=== PATIENT | male | born 1960 | race Caucasian/White ===

== ENCOUNTER 2018-08-12 02:36 | Outpatient (CLI) | payer BC, SELFPAY ==
[2018-08-12 08:29] LABS: Cholesterol 141 mg/dL (50-200); Glucose 100 mg/dL (70-100); HDL Cholesterol 55 mg/dL (40-60); LDL CHOLESTEROL 77 mg/dL (<100); Triglyceride 54 mg/dL (30-150)
== END 2018-08-12 02:56 ==
PROVIDERS: PCP Internal Medicine; Visit Provider Internal Medicine
DX: E78.2 Mixed hyperlipidemia (principal)
CPT/HCPCS: 36415; 80061; 82947; 83721

== ENCOUNTER 2019-01-25 17:17 | Emergency (ER) | payer BC, SELFPAY ==
[2019-01-25 17:22] VITALS: BP 122/75; PULSE 108; RESP 16; TEMP 37.2
--- NOTE | 2019-01-25 18:02 | W.ED.GENAD ---
Discharge Plan Disposition Patient Disposition: HOME Discharge Details Chief Complaint: Fever Clinical Impression: Influenza A Primary Care Provider: Mary Rodgers ED Provider: Mervin Mistry Home Meds and New Rx's Prescriptions: New oseltamivir 75 mg capsule 75 mg PO BID Qty: 9 RF: 0 No Action fluconazole 200 mg tablet 200 mg PO DAILY RF: 0 cholecalciferol (vitamin D3) 1,000 unit capsule 1,000 unit PO DAILY RF: 0 aspirin [Aspir-81] 81 mg tablet,delayed release (DR/EC) 81 mg PO DAILY RF: 0 rosuvastatin [Crestor] 5 mg tablet 5 mg PO DAILY Qty: 90 RF: 3 diphenhydramine HCl [Benadryl] 25 MG capsule 25 mg PO PRN RF: 0 C-nystatin 1 mu PO TID RF: 0 doxycycline monohydrate 50 mg Tablet 100 mg PO BID RF: 0 Discharge Instructions Instructions: Influenza (ED) Additional Instructions: Please take Tamiflu as prescribed. Please take ibuprofen over the counter. Take 600mg by mouth every 6 hours as needed for fever/aches. Please discuss prescribed medications with your doctor. Please contact your primary care physician to arrange follow-up. Return to the ER for any worsening or new concerning symptoms. Referrals: Mary Rodgers MD [Primary Care Provider] - Discharge Data Discharge Date/Time-TO BE ENTERED AT DEPARTURE: 01/25/19 18:30 Medical Decision Making 59-year-old male here with fever since yesterday, sinus congestion, postnasal drip, cough, myalgias. Patient is saturating well in no respiratory distress with clear to auscultation of lungs bilaterally. Patient is hemodynamically stable. He has fatigue but denies dizziness. No signs of focal bacterial infection on exam. Suspect viral URI. Considered influenza. Rapid strep testing Plan to treat with ibuprofen. I encouraged increased oral hydration and supportive care. Patient was instructed to follow-up with his primary care physician and to return immediately should have any worsening or new concerning symptoms. HPI General Mode of arrival: ambulatory. Date/Time Provider Initiated Documentation: 01/25/19 17:31. Limitations to Documentation: no limitations. Information obtained by: patient. HPI Narrative: 59-year-old male here with chief complaint of fever. Patient has had fever for the past 24 hours. Fever worse today and is high as 102 Fahrenheit this afternoon. He notes that yesterday he started to experience sinus congestion, runny nose, intermittent cough, myalgias and fatigue. No modifiers. Patient recently started doxycycline approximately 1 to 2 weeks ago as part of his ongoing treatment for chronic Lyme disease. Related Data Home Medications Medication Instructions Recorded Confirmed diphenhydramine HCl [Benadryl] 25 mg PO PRN cap 03/11/17 01/25/19 aspirin 81 mg tablet,delayed 81 mg PO DAILY 04/01/18 01/25/19 release cholecalciferol (vitamin D3) 1,000 1,000 unit PO DAILY 04/01/18 01/25/19 unit capsule rosuvastatin 5 mg tablet 5 mg PO DAILY #90 tab 04/01/18 01/25/19 C-nystatin 1 mu PO TID 10/08/18 10/08/18 fluconazole 200 mg tablet 200 mg PO DAILY 10/08/18 01/25/19 doxycycline monohydrate 100 mg PO BID 01/25/19 01/25/19 oseltamivir 75 mg PO BID #9 cap 01/25/19 Previous Rx's Medication Instructions Recorded rosuvastatin 5 mg tablet 5 mg PO DAILY #90 tab 04/01/18 oseltamivir 75 mg PO BID #9 cap 01/25/19 Allergies Allergy/AdvReac Type Severity Reaction Status Date / Time cefuroxime axetil Allergy Unknown Hives Unverified 01/25/19 17:24 [From Ceftin] clindamycin Allergy Unknown Hives Unverified 01/25/19 17:24 paroxetine AdvReac Unknown active Unverified 01/25/19 17:24 dreams dust Allergy Unknown Uncoded 01/25/19 17:24 General Stated Complaint: Fever BETINA: 3 Review of Systems Constitutional Constitutional: Reports body ache(s), Reports fatigue, Reports fever(s) and Denies headache(s) ENT Ears, Nose, Mouth, and Throat: Reports as per HPI and Denies headache(s) Cardiovascular Cardiovascular: Denies chest pain and Denies dyspnea Respiratory Respiratory: Reports cough and Denies dyspnea Gastrointestinal Gastrointestinal: Denies abdominal pain Musculoskeletal Musculoskeletal: Reports myalgias Integumentary/Breasts Skin/Breast: Denies rash Neurologic Neurologic: Denies headache(s) Endocrine Endocrine: Reports fatigue PFSH Surgical History colonoscopy w/ bx (07/29/17) H/O colonoscopy (Chronic ~04/26/14) w/ bx H/O elbow surgery (Chronic ~1986) H/O vasectomy (Chronic) History of laryngoscopy (Chronic ~12/21/14) History of temporal artery biopsy (Chronic ~11/27/14) bilaterally History of wisdom tooth extraction (Chronic) Hx of colostomy (Chronic ~08/2010) [place], perforated diverticulitis Re-Anastomosis 11/2010 Prostate Biopsy with imaging guidance (11/25/14) Dr Hoang S/P tonsillectomy (Chronic ~1971) s/p valve sparing root replacement Done at [facility] [place] [facility] [place] Family History Mother Neoplasm AGE 72, Colon cancer, LARGE SCALE ORGAN FAILURE Father , AGE 62 PANCREATIC CA Neoplasm Sister , PNEUMONIA AGE 49 CREST syndrome Colonic polyp Maternal Grandfather Neoplasm COLON CANCER Social History Smoking/Tobacco Use Status: Never Alcohol Intake: never Drug use: Never Household members: other Details: self, and son Housing: house Number of Children: 2 number of grandchildren: 0 Communication Needs: Hard of Hearing Education Level: master's degree Do you need help understanding health information?: Never current occupation: Retired What is your relationship status?: Panel score (0-1 are the most socially isolated patients): 1 Duration: 60-90 minutes/day Frequency: 3-4 times per week Seatbelt use: always Water heater temp set <120 deg: Yes Working smoke detector in home: Yes Fire extinguisher in home: Yes Carbon monox detector in home: Yes Do you feel safe in your relationship?: Yes Exam Const General: cooperative and no acute distress HENMT Head: normocephalic Ears: external ears normal and TM's normal bilaterally General nose exam: external nose normal and nares normal Face and sinus: tenderness bilaterally forehead and maxilla Mouth: moist mucous membranes Throat: posterior oropharynx normal, uvula midline and postnasal drainage Eyes Conjunctivae: normal conjunctivae Sclera: normal sclerae Neck Neck: trachea midline and supple Resp Auscultation: clear to auscultation bilaterally, no rales, no rhonchi and no wheezes Cardio Jugular venous pressure: no JVD Rate: regular rate and not tachycardic Rhythm: regular rhythm GI Palpation: soft, not firm, no guarding, no masses, not rigid and nontender Skin General skin exam: no rashes or lesions noted Neuro General: alert, awake, oriented x3 and tone normal Extrem General: no edema Psych Appearance: grossly normal Mental Status: mental status grossly normal Course Vital Signs Vital signs: Vital Signs Temperature 37.2 C 01/25/19 17:22 Pulse 108 H 01/25/19 17:22 Respiratory Rate 16 01/25/19 17:22 Blood Pressure 122/75 01/25/19 17:22 Temperature 37.2 C 01/25/19 17:22 Temperature Source Skin 01/25/19 17:22 Pulse 108 H 01/25/19 17:22 Respiratory Rate 16 01/25/19 17:22 Respiratory Effort Non-Labored 01/25/19 17:22 Blood Pressure 122/75 01/25/19 17:22 Blood Pressure Position Sitting 01/25/19 17:22 Oxygen Delivery Method Room Air 01/25/19 17:22 Oxygen Flow Rate 0 01/25/19 17:22 Pain Level 4 01/25/19 17:22 Lab/Test Results Lab/Test Results: 01/25/19 17:34 Nasopharynx Influenza Types A,B Antigen - Pending
[2019-01-25] MEDS: Ibuprofen 600 MG TAB PO (18:20)
[2019-01-25] MEDS: Oseltamivir 75 MG CAP PO (18:25)
[2019-01-25 18:29] VITALS: BP 124/77; PULSE 91; RESP 18; O2SAT 95
== END 2019-01-25 18:30 | disposition home or self-care (01) ==
LOC: ER 18:23
PROVIDERS: Emergency Provider Student in an Organized Health Care Education/Training Program; PCP Internal Medicine
DX: J10.1 Influenza due to other identified influenza virus with other respiratory manifestations (principal)
CPT/HCPCS: 87449; 99283

== ENCOUNTER 2019-02-16 01:48 | Outpatient (CLI) | payer BC, SELFPAY ==
--- NOTE | 2019-02-16 14:00 | DI.US_ITS ---
APPROVED REPORT Other Information Study Quality: Adequate Conclusion Mild concentric LVH. EF is 60-65%. There are no segmental wall motion abnormalities. The left atrium is mildly dilated Right atrium is top normal size There is very mild aortic stenosis ( mean gradient 11 mm Hg) , and trace to mild aortic regurgitation The aortic valve is probably trileaflet The anterior mitral leaflet is focally thickened. There is trace to mild mitral regurgitation There is mild tricuspid regurgitation There is an ascending aortic conduit, 3.8-3.9 cm in diameter EXAM: Comprehensive 2D, Doppler, and color-flow Echocardiogram Rhythm: NSR Indications: H/O thoracic aortic aneurysm repair Z98.89 Left Ventricle The left ventricle is normal size. The left ventricular ejection fraction is within the normal range. Mild concentric left ventricular hypertrophy. There is normal LV segmental wall motion. Tissue Doppl er imaging reveals moderate left ventricular diastolic dysfunction. LVEF is 60-65%. Right Ventricle The right ventricle is normal size. The right ventricular systolic function is normal. Atria Left atrium is mildly dilated. Right atrium size is top normal. Aortic Valve Aortic valve is probably trileaflet. very mild Aortic stenosis. Trace to mild aortic regurgitation. Mitral Valve The mitral valve is thickened but opens well. There is anterior mitral valve leaflet focal thickening . Trace to mild mitral regurgitation. Tricuspid Valve The tricuspid valve is normal in structure. Mild tricuspid regurgitation. Great Vessels Aortic root and ascending repair. Appears to be a conduit. No leaks were identified. Asc. about 3.8-3 .9cm IVC is normal in size and collapses >50% with inspiration. Pericardium There is no pericardial effusion. 2D Dimensions IVSd 1.17 cm M: 0.6-1.2 LV EDV A2C 58.70 mL PWd 1.18 cm M: 0.6 - 1.2 LV EDV A4C 61.40 mL LVDd 4.68 cm M: 4.2 - 5.9 LA Volume Index A2C 19.93 mL/m2 LVDs 3.19 cm M: 2.5 - 4.0 LA Volume Index A4C 32.18 mL/m2 Aortic Root 3.34 cm M: 3.1 - 3.7 LA Volume Index Biplane 26.68 mL/m2 RA Area A4C 19.52 cm2 LA Area A4C 21.57 cm2 LVOT 2.18 cm (M/F) 1.5-2.5 LA Area A2C 17.88 cm2 Ascending Aorta 3.86 cm M: 2.6 - 3.4 EF AP4 53.09 % LVEF (Teich) 59.86 % EF AP2 70.19 % LVEF (Mccracken's) 61.56 % M: 52 - 72 EF BP 61.56 % FS 31.82 % LV Diastology E/A Ratio 1.1 MED E' 0.09 (>0.07 m/s) LV E/e MED 7.08 (<14) LAT E' 0.10 (>0.1 m/s) LV E/e LAT 6.54 (<14) Pulm Vein s 0.67 m/s PV S/D Ratio 1.03 Pulm Vein d 0.65 m/s Pulm Vein a 0.33 m/s Aortic Valve LVOT Area 3.75 cm2 LVOT Peak Quinn. 1.06 m/s LVOT Mean Quinn. 0.76 m/s LVOT Peak Gr. 4.46 mmHg RIGOBERTO Vmax Index 0.87 cm2/m2 LVOT Mean Gr. 2.57 mmHg LVOT VTI 0.23 m RIGOBERTO Mean Quinn. Index 0.85 cm2/m2 AoV Peak Quinn. 2.13 (0.5-1.3 m/s) AoV Mean Quinn. 1.58 m/s AO Peak GR. 18.23 mmHg AO Mean GR. 11.04 (<5 mmHg) AO VTI 0.42 (0.18-0.25 m) RIGOBERTO (VTI) 2.04 (2.5-4.5 cm2) RIGOBERTO (VTI) Index 0.96 cm/m2 Mitral Valve MV E Max Quinn. 0.65 (0.4-1.3 m/s) MV A Velocity 0.58 (0.4-1.3 m/s) E/A Ratio 1.12 MV Decel. Time 219.17 (160-240 msec) MV PHT 63.56 msec MVA PHT 3.46 cm2 Pulmonary Valve PV Peak Velocity 1.02 (0.5-1.5 m/s) Tricuspid Valve TR P. Velocity 2.33 m/s TV Regurg Vmax 2.33 m/s TR P. Gradient 21.72 mmHg
== END 2019-02-16 02:08 ==
PROVIDERS: PCP Internal Medicine; Visit Provider Student in an Organized Health Care Education/Training Program
DX: I71.2 Thoracic aortic aneurysm, without rupture (principal); I25.10 Atherosclerotic heart disease of native coronary artery without angina pectoris; I35.2 Nonrheumatic aortic (valve) stenosis with insufficiency; Z98.890 Other specified postprocedural states
CPT/HCPCS: 93306

== ENCOUNTER 2019-04-02 14:06 | Outpatient (CLI) | payer BC, SELFPAY ==
[2019-04-02 15:41] LABS: Vitamin D 25 Total 35.4 ng/ml (30-100)
== END 2019-04-02 14:26 ==
PROVIDERS: PCP Internal Medicine; Visit Provider Physical Medicine & Rehabilitation
DX: E55.9 Vitamin D deficiency, unspecified (principal); M89.9 Disorder of bone, unspecified
CPT/HCPCS: 36415; 82306

== ENCOUNTER 2019-06-02 12:37 | Outpatient (CLI) | payer BC, SELFPAY ==
[2019-06-02 14:33] LABS: Calculated LDL 112 mg/dL (<100); Cholesterol 218 mg/dL (<200); HDL Cholesterol 46 mg/dL (40-60); Triglyceride 304 mg/dL (<150)
== END 2019-06-02 12:57 ==
PROVIDERS: PCP Internal Medicine; Visit Provider Internal Medicine
DX: E78.00 Pure hypercholesterolemia, unspecified (principal)
CPT/HCPCS: 36415; 80061

== ENCOUNTER 2019-07-01 08:14 | Emergency (ER) | payer BC, SELFPAY ==
[2019-07-01 08:18] VITALS: BP 118/83; PULSE 74; RESP 16; TEMP 36.7; O2SAT 100
[2019-07-01 08:24] LABS: Bilirubin Small (Negative); Blood Large (Negative); Clarity Cloudy (Clear); Glucose Negative (Negative); Ketones Negative (Negative); Leukocyte Esterase Negative (Negative); Nitrite Positive (Negative); Specific Gravity 1.025 (1.005-1.025)
--- NOTE | 2019-07-01 08:30 | DI.CT_ITS ---
EXAM: CT RENAL COLIC WO CLINICAL HISTORY: L flank pain, hematuria TECHNIQUE: Non contrast COMPARISON: ABD PELVIS WITH CONTRAST from 09/24/2010 FINDINGS: There are multiple bilateral renal calculi. There is a stone in the proximal left ureter measuring 7 millimeters. There is mild left hydronephrosis and mild left perinephric stranding. The right ure ter is mildly dilated however there is no evidence of a right-sided ureteral stone. The prostate is massively enlarged, measuring 6.3 x 5.9 by 5.4 cm. There is diffuse bladder wall thickening. No phillip dder calculi are seen. There are a few calcifications within the prostate. Visualized portions of t he lung bases show dependent changes. A small cyst is noted in the liver which is otherwise unremark able. The gallbladder, spleen, pancreas and adrenals are unremarkable. The appendix appears normal. There is increased stool. There is mild diverticulosis of the lower descending and sigmoid colon. A rectal anastomosis is seen. The aorta is normal in diameter. There has been a previous hernia re pair near the umbilicus. There are bilateral fatty containing inguinal hernias. There are mild degen erative changes in the spine. IMPRESSION: Mild left hydronephrosis secondary to a 7 millimeter stone in the proximal ureter. Multiple bilatera l non-obstructing renal calculi are also seen. The prostate is enlarged. Diffuse bladder wall thick ening.
[2019-07-01 08:40] LABS: RBC >50 HPF (0-2)
[2019-07-01 08:41] LABS: C & S Indicated? No
[2019-07-01] MEDS: Ondansetron O.D.T. 4 MG TABEF PO (08:44)
[2019-07-01] MEDS: MORPHine 10 MG/ML VIAL 2 MG IVP ×2 (08:45→09:06)
[2019-07-01] MEDS: Normal Saline 1,000 ML 1000 ML IV ×2 (08:45→09:46)
--- NOTE | 2019-07-01 08:49 | W.ED.GENAD ---
Discharge Plan Disposition Patient Disposition: HOME Condition: Stable Discharge Details Chief Complaint: FlankPain Clinical Impression: Left renal stone, Hydronephrosis Primary Care Provider: Mary Rodgers ED Provider: Shalom Grier Home Meds and New Rx's Prescriptions: New tamsulosin [Flomax] 0.4 mg capsule 0.4 mg PO DAILY 5 Days Qty: 5 RF: 0 ondansetron HCl [Zofran] 4 mg tablet 4 mg PO Q6H PRN (Reason: nausea and vomiting) Qty: 10 RF: 0 oxycodone-acetaminophen [Percocet] 5-325 mg tablet 1 tab PO Q6H PRN (Reason: pain) Qty: 8 RF: 0 Continued fluconazole 200 mg tablet 200 mg PO DAILY RF: 0 tetracycline 500 mg capsule 500 mg PO TID RF: 0 loxOral nystain PO BID RF: 0 cholecalciferol (vitamin D3) 1,000 unit capsule 1,000 unit PO DAILY RF: 0 aspirin [Aspir-81] 81 mg tablet,delayed release (DR/EC) 81 mg PO DAILY RF: 0 diphenhydramine HCl [Benadryl] 25 MG capsule 25 mg PO PRN RF: 0 rosuvastatin [Crestor] 5 mg tablet 5 mg PO DAILY Qty: 90 RF: 0 Discharge Instructions Instructions: Kidney Stones (ED) Additional Instructions: Percocet, Flomax, Zofran as directed. Percocet may cause drowsiness and/or constipation. Plenty of fluids to avoid dehydration. Please watch for new or worsening symptoms and return to the ER for any concerns. I have given you the name and number of Dr. Mcintyre, urologist. I am going to fax your information to his office but I strongly recommend you contact his office tomorrow morning to help expedite outpatient care. Your stone is 7 mm and may not pass on its own. Referrals: Ottoniel Mcintyre MD [ [facility] STAFF PHYSICIAN] - Discharge Data Discharge Date/Time-TO BE ENTERED AT DEPARTURE: 07/01/19 12:07 Medical Decision Making 59-year-old gentleman with extensive past medical history. Hematuria left flank-back pain that began yesterday into this morning. Most likely diagnosis is that of a renal stone however given his complicated past medical history certainly cannot rule out any other intra-abdominal etiologies. Will obtain IV access, give IV fluid, morphine, Zofran, will obtain laboratory values and CT imaging without contrast for likely renal colic. Patient is comfortable with this plan. Patient reports mild relief with 2 mg IV morphine, a second dose given. Laboratory values reveal creatinine of 1.33 estimated GFR of 55.23. Large amount of blood in his urine positive for nitrates greater than 50 red blood cells. Leuk esterase negative CT reveals 7 mm stone in the left proximal ureter with mild hydronephrosis. Enlarged prostate. Made patient aware of CT findings. Patient given 30 IV Toradol and another liter of IV fluid. Only mild hydro-at this time. Urinalysis as above is positive for nitrates but negative for leuk esterase, patient is afebrile, his white count is 10.68, and given the amount of blood in the urine, unable to fully evaluate for white blood cells in his urine. Culture pending. I have placed a call to Dr. Mcintyre to help expedite the patient's care. Upon reevaluation patient reports significant improvement with IV Toradol. Upon another reevaluation patient is resting comfortably and using his cell phone without difficulty. We discussed his work-up here again in the ER and disposition. I am still awaiting a call from Dr. Mcintyre but in the meantime we will forward the patient's information to his office to help expedite outpatient care. He understands that his stone is 7 mm and very well may not pass on its own. No clear indication for antibiotic therapy at this time. Will discharge with Percocet, Zofran, Flomax. Encouraged to be sure to have ample hydration. It turns out that Dr. Mcintyre is not in the office today so it appears I will not be able to speak with him however as above we have forwarded the patient's information to his office so they may reach out to him tomorrow and I encouraged the patient to reach out to Dr. Mcintyre's office tomorrow if he does not hear from them in the morning. Medical Records Medical records reviewed: Yes I reviewed the patient's medical records. Imaging Data Radiologic Study: Imaging: CT Scan Radiologist's impression: 7 mm stone left proximal ureter with mild hydronephrosis. Enlarged prostate Lab Data Lab results reviewed: Yes I reviewed the patient's lab results. Lab results narrative: Laboratory Tests Range/Units 07/01/19 07/01/19 07/01/19 08:18 08:30 08:30 WBC (4.4-10.8) k/cumm 10.68 RBC (4.50-6.00) m/cumm 4.73 Hgb (13.5-17.5) g/dL 15.3 Hct (40.0-50.0) % 44.3 MCV (80-95) fL 93.7 MCH (27.0-33.0) pg 32.3 MCHC (32.0-36.0) g/dL 34.5 RDW (11.8-14.1) % 13.3 Plt Count (130-400) x1000/uL 243 MPV (8.0-11.0) fL 9.2 Immature Gran % % 0.2 Neutrophils % 87.8 Lymphocytes % 6.2 Monocytes % 5.5 Eosinophils % 0.2 Basophils % 0.1 Absolute Neutrophils (1.2-6.7) k/cumm 9.38 H Absolute Lymphocytes (1.2-3.4) k/cumm 0.66 L Absolute Monocytes (0.11-0.7) k/cumm 0.59 Absolute Eosinophils (0.0-0.7) k/cumm 0.02 Absolute Basophils (0.0-0.2) k/cumm 0.01 PT (9.3-11.0) sec INR (0.9-1.1) APTT (21.0-31.4) sec Sodium (136-145) mmol/L 141 Potassium (3.5-5.1) mmol/L 4.3 Chloride (98-107) mmol/L 104 Carbon Dioxide (21.0-32.0) mmol/L 31.0 Anion Gap (3-11) mmol/L 6.0 BUN (7-18) mg/dL 23 H Creatinine (0.70-1.30) mg/dL 1.33 H Estimated GFR/1.73 m2 (mL/min/1.73m2) 55.23 Glucose (74-106) mg/dL 132 H Calcium (8.5-10.1) mg/dL 8.4 L Total Bilirubin (0.2-1.0) mg/dL 0.6 AST (15-37) U/L 27 ALT (16-63) U/L 36 Alkaline Phosphatase (46-116) U/L 61 Total Protein (6.4-8.2) g/dL 7.0 Albumin (3.4-5.0) g/dL 4.0 Urine Color (Yellow) Red Urine Clarity (Clear) Cloudy Urine pH (5-8) 7.0 Ur Specific [place] (1.005-1.025) 1.025 Urine Protein (Negative) mg/dL 100 H Urine Ketones (Negative) mg/dL Negative Urine Blood (Negative) Large H Urine Nitrite (Negative) Positive H Urine Bilirubin (Negative) Small H Urine Urobilinogen (Up TO 0.2) EU/dL 1.0 H Ur Leukocyte Esterase (Negative) Negative Urine RBC (0-2) HPF >50 H Urine WBC (0-5) HPF Ur Epithelial Cells (Negative) HPF Urine Crystals (Negative) HPF Urine Bacteria (Negative) HPF Urine Casts (Negative) LPF Urine Mucus (Negative) Ur Culture Indicated? No Urine Glucose (Negative) mg/dL Negative Range/Units 07/01/19 08:30 WBC (4.4-10.8) k/cumm RBC (4.50-6.00) m/cumm Hgb (13.5-17.5) g/dL Hct (40.0-50.0) % MCV (80-95) fL MCH (27.0-33.0) pg MCHC (32.0-36.0) g/dL RDW (11.8-14.1) % Plt Count (130-400) x1000/uL MPV (8.0-11.0) fL Immature Gran % % Neutrophils % Lymphocytes % Monocytes % Eosinophils % Basophils % Absolute Neutrophils (1.2-6.7) k/cumm Absolute Lymphocytes (1.2-3.4) k/cumm Absolute Monocytes (0.11-0.7) k/cumm Absolute Eosinophils (0.0-0.7) k/cumm Absolute Basophils (0.0-0.2) k/cumm PT (9.3-11.0) sec 10.6 INR (0.9-1.1) 1.1 APTT (21.0-31.4) sec 24.3 Sodium (136-145) mmol/L Potassium (3.5-5.1) mmol/L Chloride (98-107) mmol/L Carbon Dioxide (21.0-32.0) mmol/L Anion Gap (3-11) mmol/L BUN (7-18) mg/dL Creatinine (0.70-1.30) mg/dL Estimated GFR/1.73 m2 (mL/min/1.73m2) Glucose (74-106) mg/dL Calcium (8.5-10.1) mg/dL Total Bilirubin (0.2-1.0) mg/dL AST (15-37) U/L ALT (16-63) U/L Alkaline Phosphatase (46-116) U/L Total Protein (6.4-8.2) g/dL Albumin (3.4-5.0) g/dL Urine Color (Yellow) Urine Clarity (Clear) Urine pH (5-8) Ur Specific [place] (1.005-1.025) Urine Protein (Negative) mg/dL Urine Ketones (Negative) mg/dL Urine Blood (Negative) Urine Nitrite (Negative) Urine Bilirubin (Negative) Urine Urobilinogen (Up TO 0.2) EU/dL Ur Leukocyte Esterase (Negative) Urine RBC (0-2) HPF Urine WBC (0-5) HPF Ur Epithelial Cells (Negative) HPF Urine Crystals (Negative) HPF Urine Bacteria (Negative) HPF Urine Casts (Negative) LPF Urine Mucus (Negative) Ur Culture Indicated? Urine Glucose (Negative) mg/dL HPI General Mode of arrival: ambulatory. Date/Time Provider Initiated Documentation: 07/01/19 08:34. Limitations to Documentation: no limitations. Information obtained by: patient. HPI Narrative: This is a 59-year-old gentleman who reports mild hematuria yesterday, woke up this morning at 2 AM with left back and flank pain and increased hematuria. Mild nausea but no vomiting. Patient reports that imaging 2 years ago did show that he had incidental renal stones. He has never passed a stone. Denies recent illness or trauma. Reports the pain is sharp and moderate to severe. He has a history of aortic aneurysm with repair, bacteremia, neuralgia, arterial sclerosis of coronary artery, hyperlipidemia, sleep apnea, migraines, GERD, diverticulitis, partial bowel resection with colostomy and subsequent reversal. Related Data Home Medications Medication Instructions Recorded Confirmed diphenhydramine HCl [Benadryl] 25 mg PO PRN cap 03/11/17 07/01/19 aspirin 81 mg tablet,delayed 81 mg PO DAILY 04/01/18 07/01/19 release cholecalciferol (vitamin D3) 25 1,000 unit PO DAILY 04/01/18 07/01/19 mcg (1,000 unit) capsule fluconazole 200 mg tablet 200 mg PO DAILY 10/08/18 07/01/19 rosuvastatin 5 mg tablet 5 mg PO DAILY #90 tab 04/16/19 07/01/19 loxOral nystain PO BID 05/19/19 tetracycline 500 mg capsule 500 mg PO TID 05/19/19 07/01/19 ondansetron HCl [Zofran] 4 mg PO Q6H PRN #10 tab 07/01/19 oxycodone-acetaminophen [Percocet] 1 tab PO Q6H PRN #8 tab 07/01/19 tamsulosin [Flomax] 0.4 mg PO DAILY 5 Days #5 cap 07/01/19 Previous Rx's Medication Instructions Recorded rosuvastatin 5 mg tablet 5 mg PO DAILY #90 tab 04/16/19 ondansetron HCl [Zofran] 4 mg PO Q6H PRN #10 tab 07/01/19 oxycodone-acetaminophen [Percocet] 1 tab PO Q6H PRN #8 tab 07/01/19 tamsulosin [Flomax] 0.4 mg PO DAILY 5 Days #5 cap 07/01/19 Allergies Allergy/AdvReac Type Severity Reaction Status Date / Time cefuroxime axetil Allergy Unknown Hives Verified 07/01/19 08:24 [From Ceftin] clindamycin Allergy Unknown Hives Verified 07/01/19 08:24 paroxetine AdvReac Unknown active Verified 07/01/19 08:24 dreams dust Allergy Unknown Uncoded 07/01/19 08:24 General Stated Complaint: FlankPain BETINA: 3 Review of Systems Constitutional Constitutional: Denies fatigue, Denies fever(s) and Reports headache(s) Eyes Eyes: Denies change in vision ENT Ears, Nose, Mouth, and Throat: Reports headache(s) Cardiovascular Cardiovascular: Denies chest pain and Denies dyspnea Respiratory Respiratory: Denies cough and Denies dyspnea Gastrointestinal Gastrointestinal: Reports abdominal pain, Reports nausea and Denies vomiting Genitourinary Genitourinary: Reports hematuria, Denies dysuria, Denies penile discharge and Denies testicular pain Musculoskeletal Musculoskeletal: Reports back pain Integumentary/Breasts Skin/Breast: Denies rash Neurologic Neurologic: Reports headache(s) Endocrine Endocrine: Denies fatigue [facility] Surgical History colonoscopy w/ bx (07/29/17) H/O colonoscopy (Chronic ~04/26/14) w/ bx H/O elbow surgery (Chronic ~1986) H/O vasectomy (Chronic) History of laryngoscopy (Chronic ~12/21/14) History of temporal artery biopsy (Chronic ~11/27/14) bilaterally History of wisdom tooth extraction (Chronic) Hx of colostomy (Chronic ~08/2010) [place], perforated diverticulitis Re-Anastomosis 11/2010 Prostate Biopsy with imaging guidance (11/25/14) Dr Hoang S/P tonsillectomy (Chronic ~1971) s/p valve sparing root replacement Done at [facility] [place] 03/13/15 Family History Mother Neoplasm AGE 72, Colon cancer, LARGE SCALE ORGAN FAILURE Father , AGE 62 PANCREATIC CA Neoplasm Sister , PNEUMONIA AGE 49 CREST syndrome Colonic polyp Maternal Grandfather Neoplasm COLON CANCER Social History Smoking/Tobacco Use Status: Never Alcohol Intake: never Drug use: Never Household members: other Details: self, and son Housing: house Number of Children: 2 number of grandchildren: 0 Communication Needs: Hard of Hearing Education Level: master's degree Do you need help understanding health information?: Never current occupation: Retired What is your relationship status?: Panel score (0-1 are the most socially isolated patients): 1 Duration: 60-90 minutes/day Frequency: 3-4 times per week Seatbelt use: always Water heater temp set <120 deg: Yes Working smoke detector in home: Yes Fire extinguisher in home: Yes Carbon monox detector in home: Yes Do you feel safe at home: Yes Do you feel safe in your relationship?: Yes Exam Const General: cooperative, healthy appearing, comfortable and no acute distress Orientation: alert, awake and oriented x3 HENMT Head: normal to inspection, normocephalic and atraumatic Mouth: moist mucous membranes Eyes Conjunctivae: conjunctivae normal Neck Neck: normal visual inspection, full ROM, trachea midline and supple Resp Effort & Inspection: normal respiratory effort and able to speak in complete sentences Auscultation: clear to auscultation bilaterally Cardio Rate: regular rate Rhythm: regular rhythm GI Inspection: normal to inspection Palpation: soft, not firm, no guarding, not rigid and tender (Mild left-sided flank discomfort to moderate palpation) with no rebound tenderness Auscultation: normal bowel sounds Back/Spine/Pelvis Back: no CVA tenderness and No back tenderness Skin General skin exam: no rashes or lesions noted Neuro General: alert, awake, moves all extremities and no focal motor deficits Motor: muscle tone normal throughout Sensory Exam: no sensory deficits noted Extrem General: normal to inspection and full ROM Psych Appearance: grossly normal Mental Status: mental status grossly normal Course Vital Signs Vital signs: Vital Signs Temperature 36.7 C 07/01/19 08:18 Pulse 74 07/01/19 08:18 Respiratory Rate 16 07/01/19 08:18 Blood Pressure 118/83 07/01/19 08:18 Pulse Oximetry 100 07/01/19 08:18 Temperature 36.7 C 07/01/19 08:18 Temperature Source Temporal Artery Scan 07/01/19 08:18 Pulse 74 07/01/19 08:18 Respiratory Rate 16 07/01/19 08:18 Respiratory Effort Non-Labored 07/01/19 08:23 Blood Pressure 118/83 07/01/19 08:18 Blood Pressure Position Sitting 07/01/19 08:18 Pulse Oximetry 100 07/01/19 08:18 Oxygen Delivery Method Room Air 07/01/19 08:18 Oxygen Flow Rate 0 07/01/19 08:18 Pain Level 8 07/01/19 08:45 Lab/Test Results Lab/Test Results: Laboratory Tests Range/Units 07/01/19 08:18 Urine Color (Yellow) Red Urine Clarity (Clear) Cloudy Urine pH (5-8) 7.0 Ur Specific [place] (1.005-1.025) 1.025 Urine Protein (Negative) mg/dL 100 H Urine Ketones (Negative) mg/dL Negative Urine Blood (Negative) Large H Urine Nitrite (Negative) Positive H Urine Bilirubin (Negative) Small H Urine Urobilinogen (Up TO 0.2) EU/dL 1.0 H Ur Leukocyte Esterase (Negative) Negative Urine RBC (0-2) HPF >50 H Urine WBC (0-5) HPF Ur Epithelial Cells (Negative) HPF Urine Crystals (Negative) HPF Urine Bacteria (Negative) HPF Urine Casts (Negative) LPF Urine Mucus (Negative) Ur Culture Indicated? No Urine Glucose (Negative) mg/dL Negative
[2019-07-01 09:00] LABS: Abs Immature Grans 0.02 k/cumm (0.0-0.09); Absolute Basophil Count 0.01 k/cumm (0.0-0.2); Absolute Eosinophil Count 0.02 k/cumm (0.0-0.7); Absolute Lymphocyte Count 0.66 k/cumm (1.2-3.4); Absolute Monocyte Count 0.59 k/cumm (0.11-0.7); Absolute Neutrophil Count 9.38 k/cumm (1.2-6.7); Basophils % 0.1; Eosinophils % 0.2; HCT 44.3 % (40.0-50.0); HGB 15.3 g/dL (13.5-17.5); Immature Grans % 0.2 %; Lymphocytes % 6.2; Mean Corp. HGB Concentration 34.5 g/dL (32.0-36.0); Mean Corpuscular Hemoglobin 32.3 pg (27.0-33.0); Mean Corpuscular Volume 93.7 fL (80-95); Mean Platelet Volume 9.2 fL (8.0-11.0); Monocytes % 5.5; Neutrophils % 87.8; Platelet Count 243 x1000/uL (130-400); RBC 4.73 m/cumm (4.50-6.00); RBC Distribution Width 13.3 % (11.8-14.1); White Blood Cell Count 10.68 k/cumm (4.4-10.8)
[2019-07-01 09:09] LABS: INR 1.1 (0.9-1.1); PTT Activated 24.3 sec (21.0-31.4); Prothrombin Time 10.6 sec (9.3-11.0)
[2019-07-01 09:17] LABS: ALT 36 U/L (16-63); AST 27 U/L (15-37); Alkaline Phosphatase 61 U/L (46-116); BUN 23 mg/dL (7-18); Bilirubin, Total 0.6 mg/dL (0.2-1.0); CREATININE 1.33 mg/dL (0.70-1.30); Calcium 8.4 mg/dL (8.5-10.1); Chloride 104 mmol/L (98-107); Estimated GFR 55.23 (mL/min/1.73m2); Glucose 132 mg/dL (74-106); Potassium 4.3 mmol/L (3.5-5.1); Sodium 141 mmol/L (136-145)
[2019-07-01] MEDS: Ketorolac 30 MG/ML VIAL IVP (09:46)
[2019-07-01 11:37] VITALS: BP 132/87; PULSE 89; RESP 18; TEMP 37.1; O2SAT 97
[2019-07-01 12:08] VITALS: BP 132/87; PULSE 89; RESP 18; TEMP 37.1; O2SAT 97
--- NOTE | 2019-07-01 12:54 | NUR.NOTE ---
Nursing Note: Referral faxed to [facility] for follow up. Keila Rankin
== END 2019-07-01 12:07 | disposition home or self-care (01) ==
PROVIDERS: Emergency Provider Physician Assistant; PCP Internal Medicine
DX: N13.2 Hydronephrosis with renal and ureteral calculous obstruction (principal); N40.0 Benign prostatic hyperplasia without lower urinary tract symptoms; Z87.442 Personal history of urinary calculi
CPT/HCPCS: 36415; 80053; 96361; 96374; 96375; 99284; 74176; 81003; 81015; 85025; 85610; 85730; 99285; J1885; J2270

== ENCOUNTER 2019-07-06 08:33 | Day surgery (SDC) | payer BC, SELFPAY ==
[2019-07-06] VITALS (8 sets, daily range): BP systolic 76–131; BP diastolic 45–83; PULSE 56–77; RESP 14–18; TEMP 36.3–36.8; O2SAT 96–100
[2019-07-06] MEDS: Lactated Ringers 1,000 ML 80 ML IV ×2 (09:22→13:24)
--- NOTE | 2019-07-06 10:06 | HPE_ITS ---
Date of service: 07/06/19 Time of Service: 10:07 Assessment and Plan Assessment and plan (1) Left ureteral stone: Status: Acute Assessment and plan: We will move ahead with cystoscopy, left retrograde p yelogram, left flexible ureteroscopy with Holmium laser lithotripsy of the ureteral stone. i explained that if we are unable to access the stone, we may need to place a ureteral stent and arrange a staged procedure. We discussed complications such as bleeding, infection and ureteral/bladder/renal injury. History of Present Illness History of Present Illness Chief Complaint: Left ureteral stone Narrative: Chief complaint: Left ureteral stone This is a 59-year-old gentleman who had previously been identified as having nonobstructing bilateral kidney stones. The diagnosis was made on imaging studies done for unrelated reasons. He has never had any pain associated with the stones until he was awakened last week with severe left upper quadrant and flank pain. He was evaluated in our emergency room and a CT scan demonstrates a 7 mm proximal left ureteral stone. His pain is managed as long as he takes his pain medication regularly. He did have some gross hematuria prior to the onset of the pain. The hematuria was present when he presented to the emergency room but has since resolved. He has no dysuria. He has no fever or chills. He does have a family history of kidney stone. He has no known history of gout or hyperparathyroid disease. He does have a history of Lyme disease and at one point was on a very high protein diet. He was told that his uric acid levels were high and he was wondering if his stones may be related to the high-protein diet. He is not sure about the chemical composition of his siblings stones. Since his initial evaluation, he has had continued pain. The pain has not changed in position. Review of Systems Const: Details: No fevers or chills No vision change or dysphasia No diabetes or thyroid No shortness of breath, cough or hemoptysis No chest pain or palpitations No hepatitis, ulcers, jaundice, diarrhea or constipation No seizures, strokes or peripheral neuropathy No bleeding disorders or anemia No known gout Exam Const Other: He does not appear septic or toxic He cooperative His vital signs are documented elsewhere His chest wall motion is normal. He is not short of breath at rest. He is awake and alert We reviewed his renal CT scan on the PACS system. He has multiple nonobstructing stones in both kidneys. There is a 7 mm stone in the upper left ureter causing hydronephrosis. I do not see any distal ureteral stones. I cannot definitively see the stones on the plain film portion of his CT, but there is quite a bit of overlying bowel gas. I did find a [facility] report from 2010 indicates the stones are radio opaque. His urine pH is 7 Vital Signs 07/02/19 11:08 BP 135/78 Blood Pressure Location Lt brachial Position Sitting Pulse 60 Pulse Source NIBP PFSH Social History Smoking/Tobacco Use Status: Never Alcohol Intake: never Drug use: Never Substance use type: does not use Household members: other Details: self, and son Housing: house Number of Children: 2 number of grandchildren: 0 Communication Needs: Hard of Hearing Education Level: master's degree Do you need help understanding health information?: Never current occupation: Retired What is your relationship status?: Panel score (0-1 are the most socially isolated patients): 1 Duration: 60-90 minutes/day Frequency: 3-4 times per week Seatbelt use: always Water heater temp set <120 deg: Yes Working smoke detector in home: Yes Fire extinguisher in home: Yes Carbon monox detector in home: Yes Do you feel safe at home: Yes Do you feel safe in your relationship?: Yes Meds Home Medications and Allergies Home Medications Medication Instructions Recorded Confirmed Type diphenhydramine HCl [Benadryl] 25 mg PO PRN cap 03/11/17 07/06/19 History aspirin 81 mg tablet,delayed 81 mg PO DAILY 04/01/18 07/06/19 History release cholecalciferol (vitamin D3) 25 1,000 unit PO DAILY 04/01/18 07/06/19 History mcg (1,000 unit) capsule fluconazole 200 mg tablet 200 mg PO DAILY 10/08/18 07/06/19 History rosuvastatin 5 mg tablet 5 mg PO DAILY #90 tab 04/16/19 07/06/19 Rx loxOral nystain 1 PO BID 05/19/19 07/02/19 History tetracycline 500 mg capsule 500 mg PO TID 05/19/19 07/06/19 History ondansetron HCl [Zofran] 4 mg PO Q6H PRN #10 tab 07/01/19 07/06/19 Rx oxycodone-acetaminophen [Percocet] 1 tab PO Q6H PRN #8 tab 07/01/19 07/06/19 Rx Allergies Allergy/AdvReac Type Severity Reaction Status Date / Time cefuroxime axetil AdvReac Unknown Hives Verified 07/06/19 09:04 [From Ceftin] clindamycin AdvReac Unknown Hives Verified 07/06/19 09:04 paroxetine AdvReac Unknown active Verified 07/06/19 09:04 dreams dust Allergy Unknown Uncoded 07/06/19 09:04 Exam Resp Effort & Inspection: normal respiratory effort Auscultation: clear to auscultation bilaterally Cardio Rate: regular rate Rhythm: regular rhythm Results Last Vital Signs Temp 36.3 C L 07/06/19 08:43 Pulse 67 07/06/19 08:43 Resp 18 07/06/19 08:43 BP 131/83 07/06/19 08:43 Pulse Ox 97 07/06/19 08:43
--- NOTE | 2019-07-06 10:45 | DI.RAD_ITS ---
EXAM: XR RETROGRADE IN OR CLINICAL HISTORY: LEFT URETERAL STONE. TECHNIQUE: 2D and realtime digital imaging was performed. FINDINGS: Fluoroscopy was utilized by Dr. Mcintyre during the retrograde evaluation of the renal collecting system . Please refer to the procedure report for complete details. Fluoro time: 26.7 sec
[2019-07-06] MEDS: GENTAMICIN 120 MG in Normal Saline 100 ML 206 MG IVPB (11:26)
[2019-07-06] MEDS: Lidocaine 2% Jelly 6 ML SYR (11:43)
[2019-07-06] MEDS: Omnipaque 300 MG/ML 50 ML BTL (11:52)
--- NOTE | 2019-07-06 12:38 | W.PM.DSUDISC ---
Discharge Plan Disposition Patient Disposition: HOME Condition: Stable Discharge Details Attending Provider: Ottoniel Mcintyre Primary Care Provider: Mary Rodgers Home Meds and New Rx's Prescriptions: No Action fluconazole 200 mg tablet 200 mg PO DAILY RF: 0 tetracycline 500 mg capsule 500 mg PO TID RF: 0 loxOral nystain 1 PO BID RF: 0 cholecalciferol (vitamin D3) 1,000 unit capsule 1,000 unit PO DAILY RF: 0 aspirin [Aspir-81] 81 mg tablet,delayed release (DR/EC) 81 mg PO DAILY RF: 0 diphenhydramine HCl [Benadryl] 25 MG capsule 25 mg PO PRN RF: 0 rosuvastatin [Crestor] 5 mg tablet 5 mg PO DAILY Qty: 90 RF: 0 ondansetron HCl [Zofran] 4 mg tablet 4 mg PO Q6H PRN (Reason: nausea and vomiting) Qty: 10 RF: 0 oxycodone-acetaminophen [Percocet] 5-325 mg tablet 1 tab PO Q6H PRN (Reason: pain) Qty: 8 RF: 0 Discharge Instructions Additional Instructions: f/u 2 to 3 days for stent removal - tell my office there is a string on the stent f/u appt with me @ 4 weeks with renal ultrasound script for oxycodone refilled no need to strain urine Activity:: Activity as Tolerated Shower/Bathe:: 24 hours Diet:: As Tolerated Discharge Orders Discharge Orders: Discharge Order (Routine); Ordered 07/06/19 Ordered By: Ottoniel Mcintyre DS: Diagnosis Discharge Diagnosis (1) Left ureteral stone: Status: Acute
[2019-07-06] MEDS: Phenazopyridine 200 MG TAB PO (13:43)
--- NOTE | 2019-07-06 14:14 | ROE_ITS ---
DATE OF PROCEDURE: July 06, 2019 PREOPERATIVE DIAGNOSIS: Left ureteral stone. POSTOPERATIVE DIAGNOSIS: Same. PROCEDURE: Cystoscopy; left retrograde pyelogram; left flexible ureteroscopy; holmium laser lithotri psy of left ureteral stone; extraction of multiple stone fragments; insert left ureteral stent. SURGEON: Ottoniel Mcintyre M.D. ANESTHESIA: General. COMPLICATIONS: None. SPECIMENS: Left ureteral stones for chemical analysis. HISTORY: This is a 59-year-old gentleman who has a known history of kidney stones. The stones had b een asymptomatic, so he has been followed without requiring any type of surgical treatment. Last week he developed an acute onset of left-sided renal colic. He was found to have a 7 mm stone i n the proximal ureter. His symptoms have persisted and he presents now for stone manipulation. OPERATIVE REPORT: The patient was brought to the operating room on 07/06/2019. He was given a preope rative dose of both Gentamicin and Cefazolin. After successful induction of general anesthesia, he was placed in the dorsal lithotomy position. Hi s genitalia was prepped and draped sterilely. A 22 [place]ian rigid cystoscope was passed through the urethra into the bladder. The urethra and bladde r were inspected with the 30-degree lens. The pendulous, bulbous and membranous urethras all appeared normal with no strictures. The prostate urethra showed trilobar hypertrophy with a median lobe that jutted back into the bladder, as well as enlarged lateral lobes. I was able to visualize the left ureteral orifice and cannulate it with a 6 Mont[place]erratian access catheter. A retrograde film was then obtained by injecting Omnipaque through the access catheter under fluorosc opic guidance. A filling defect was seen in the proximal ureter at the location of the previously-identified stone. I was able to pass a guidewire through the access catheter and maneuver the wire above the level of t he stone. We then exchanged the access catheter for a dual-lumen catheter and a second wire was positioned. We chose one of the wires as a working wire and the other as a safety wire. I then passed a ureteral access sheath over the working wire, leaving the safety wire in place. I pa ssed the flexible ureteroscope through the access sheath and advanced the scope up the ureter. I was able to visualize the stone, which appeared impacted in the proximal ureter. We utilized a 272 micron holmium laser fiber to fracture the stone. We used power setting of 800 and a rate of 8 to b reak the stone. As the stone was broken, we would grasp the fragments in a Zero Tip stone basket and extract them. These stone fragments were collected and sent to pathology for chemical analysis. As the stone burden increased, we switched to a dusting setting of 200 with a rate of 8. This preven viraj proximal migration of the stone while treating it. At the completion of the procedure the ureter appeared open with no large residual stone fragments. Because of the edema caused both by the stone and our procedure, we elected to place a ureteral stent . We removed the access sheath and passed a 4.8 [place]erratian variable-length stent over the safety wire. The proximal end of the stent was curled in the collecting system and the distal end was curled within t he bladder. We left the safety string in place and brought it through the urethra. We taped the str ing onto the dorsum of the penis. We will plan on removing the stent in 2 to 3 days. The patient tolerated this procedure well. There were no complications.
[2019-07-09 21:33] LABS: Source: Left Ureter
== END 2019-07-06 14:36 | disposition home or self-care (01) ==
PROVIDERS: PCP Internal Medicine; Visit Provider Urology
PROC: (CPT 52356; principal; 2019-07-06 10:15)
DX: N20.1 Calculus of ureter (principal)
CPT/HCPCS: 52356; NC; 74420; 82365; J0690; J1580; J1885; J2001; J2405; J2704; J3010; Q9967

== ENCOUNTER 2019-09-08 01:34 | Outpatient (CLI) | payer BC, SELFPAY ==
--- NOTE | 2019-09-08 07:30 | DI.US_ITS ---
EXAM: US RENAL CLINICAL HISTORY: lt ureteral stone,? hydronephrosis after ureteroscopy. TECHNIQUE: Reyez scale, color and spectral Doppler were used. COMPARISON: CT CT RENAL COLIC WO from 07/01/2019 FINDINGS: Renal size in cm: Right: 9.5 left: 11.3 Echogenicity: Normal. Hydronephrosis: No. Cyst or mass: No. Nephrolithiasis: Bilateral echogenic foci present consistent with nephrolithiasis. The largest on th e right measures 1.1 cm and is located in the midpole. The largest on the left measures 0.8 cm and i s located in the midpole. Other findings: None. Bladder:Normal. Ureteral jets: Right: Visualized and unremarkable. Left: Visualized and unremarkable. Prevoid vol:83 cc Postvoid vol:49 cc Prostate: 82 cc DOPPLER FINDINGS: Normal and symmetric blood flow to the kidneys. IMPRESSION: 1. Bilateral nephrolithiasis. No evidence of hydronephrosis. 2. Enlarged prostate gland. Moderate postvoid urinary bladder volume which may be due to the enlarge d prostate gland. DATA REPOSITORY:
== END 2019-09-08 01:54 ==
PROVIDERS: PCP Internal Medicine; Visit Provider Urology
DX: N20.1 Calculus of ureter (principal); N40.0 Benign prostatic hyperplasia without lower urinary tract symptoms
CPT/HCPCS: 76770

== ENCOUNTER 2019-10-12 00:32 | Outpatient (CLI) | payer BC, SELFPAY ==
--- NOTE | 2019-10-12 07:45 | DI.NM_ITS ---
APPROVED REPORT Exam: Exercise Treadmill Patient Location: Out-Patient Room/Bed: Stress Nurse: Jacqueline Jaime RN BMI: 27.12 Baseline Rhythm: Sinus Rhythm Indications: Shortness of breath with exercise. Medical History Medical History: Hyperlipidemia Cardiac Medications: Aspirin. Vitamin E. Rosovastatin. , Allergies: No known drug allergies Cardiac Risk Factors: Hyperlipidemia Previous Cardiac Procedures: Aortic aneurysm status post repair with valve sparing root replacement i n 2014. Exercise History: Physically active Lung Sounds: Clear to auscultation Heart Sounds: Regular Stress Test Details Test: Exercise stress testing was performed using a modified Dg protocol. Rest Stress HR Resting HR Supine: 71 bpm Max Heart Rate (APMHR): 162 bpm Resting HR Standin bpm Target HR (85% APMHR): 137 bpm Recovery HR: 88 bpm HR response to stress: Normal HR response to stress BP Resting BP Supine: 138/76 mmHg Resting BP Standin/74 mmHg Max BP: 164/62 mmHg Recovery BP: 138/70 mmHg BP response to stress: Normal blood pressure response to stress. ECG Resting ECG: Sinus Rhythm Stress ECG: Sinus Tachycardia ST Change: Horizontal ST depression Arrhythmia: VPC's Recovery ECG: Sinus Rhythm Recovery ST Change: No significant ST segment changes. Recovery Arrhythmia: None Clinical Reason for Termination: Fatigue Stress Symptoms: General Fatigue Exercise duration: 12 min00 sec Highest Stage Reached: Stage 4: 4.2 mph at 16% grade. Exercise capacity: 13.48 METs Functional Capacity: Above average capacity Stress ECG Conclusion 1. Patient exercised for 12 minutes (13 METS). There are no symptom suggestive of ischemia. 2. There is no evidence of ischemia on the ECG portion of the exam. 3. The patient did have upsloping ST depressions in the lateral leads towards the end of exercise lik basil representing J-junction depression. MPI Conclusion The patient's ejection fraction was 51% with stress. There were no wall motion abnormalities. There is no evidence of ischemia on the imaging portion of the exam. This represents a normal SPECT stress test. Radiologist Interpretation Radiologist Interpretation by: Javi Vo MD Interpretation Date/Time: 10/12/2019 16:43:19
== END 2019-10-12 00:52 ==
PROVIDERS: PCP Internal Medicine; Visit Provider Internal Medicine Cardiovascular Disease
DX: R06.02 Shortness of breath (principal); I25.10 Atherosclerotic heart disease of native coronary artery without angina pectoris; E78.5 Hyperlipidemia, unspecified
CPT/HCPCS: 78452; 93017

== ENCOUNTER 2020-01-01 13:15 | Outpatient (REF) | payer BC, SELFPAY ==
[2020-01-01 14:17] LABS: Bacteria Negative HPF (Negative); C & S Indicated? No; Casts Negative LPF (Negative); Crystals Negative HPF (Negative); Epithelial Cells Rare HPF (Negative); Mucus Negative (Negative); RBC >50 HPF (0-2); WBC 0-2 HPF (0-5)
== END 2020-01-01 13:35 ==
LOC: LBN 13:15
PROVIDERS: PCP Internal Medicine; Visit Provider Family Medicine
DX: R31.9 Hematuria, unspecified (principal)
CPT/HCPCS: 81015

== ENCOUNTER 2020-01-11 01:12 | Outpatient (CLI) | payer BC, SELFPAY ==
--- NOTE | 2020-01-11 06:45 | DI.CT_ITS ---
EXAM: CT ABDOMEN PELVIS WO/W CLINICAL HISTORY: painless hematuria w/ hx of stones,r31.9 TECHNIQUE: Imaging Protocol: Axial computed tomography images with coronal and sagittal reformatted images were created and reviewed CONTRAST MATERIAL: Intravenous: Omnipaque 350 Contrast volume:100 mL Oral: No COMPARISON: CT CT RENAL COLIC WO from 07/01/2019 FINDINGS: ABDOMEN: Lung Bases: Dependent atelectasis. Liver: Normal density. There are a few tiny hypodensities scattered throughout the liver. They are t oo small for further characterization but likely reflect small cysts. Small cysts are seen in the ca udal aspect of the right lobe of the liver. Portal, Superior Mesenteric, and Splenic Veins: Unremarkable. Gallbladder and Biliary Tract: No radiodense calculus or dilation. Pancreas: Normal density, no abnormal calcifications or inflammatory process. Spleen: Normal. Adrenals: No masses seen. Kidneys: Normal size, contour and axis. There are multiple nonobstructing stones in the kidneys bilat erally. The largest on the right is in the midpole and measures measures 0.9 cm. The largest on the left is in the midpole and measures 0.7 cm. Small bilateral renal cysts. Abdominal Aorta: Abdominal portion non-dilated. Mild atherosclerosis. Bowel: No obstruction or bowel wall thickening. Appendix is unremarkable. Anastomotic sutures seen at the rectosigmoid junction. Colonic diverticulosis but no evidence of acute diverticulitis. Moderat e amount of retained stool throughout the colon. Peritoneal Cavity: No ascites, collection or mesenteric inflammatory response. Lymph Nodes: Within normal limits. Bones: Mild degenerative changes. Soft Tissues: Small bilateral fat containing inguinal hernia are noted. PELVIS: Bladder: Bladder is incompletely distended. There is thickening of the wall of the bladder diffusely which may be due to underdistention. No surrounding inflammatory process is seen. There is a 0.4 c m bladder stone. Reproductive Organs: Prostate gland is enlarged measuring 6.4 x 4.8 cm. Lymph Nodes: Within normal limits. Bones: Mild degenerative changes. IMPRESSION: 1. Bilateral nonobstructing nephrolithiasis. 2. 0.4 cm urinary bladder stone. 3. Urinary bladder wall thickening. This may be due to underdistention. RADIATION DOSE DELIVERED: 2,623.67mGy.cm Total DLP 2,623.67mGy.cm Total DLP DATA REPOSITORY: All CT scans at this facility are submitted to the National Radiology Data Registry (NRDR) Dose Index Registry (DIR) with the [employer] (ACR). RADIATION OPTIMIZATION: All CT scans at this facility use at least one of these dose optimization te chniques: automated exposure control; mA and/or kV adjustment per patient size (includes targeted exa ms where dose is matched to clinical indication); or iterative reconstruction.
[2020-01-11] MEDS: Omnipaque 350 MG/ML 100 ML BTL IJ (09:44)
[2020-01-11] MEDS: Normal Saline Flush 10 ML SYR IVP (09:46)
[2020-01-11] MEDS: Normal Saline - Diluent 50 ML VIAL IV (09:46)
== END 2020-01-11 01:32 ==
PROVIDERS: PCP Internal Medicine; Visit Provider Nurse Practitioner Gerontology
DX: R31.9 Hematuria, unspecified (principal); N20.0 Calculus of kidney; N20.9 Urinary calculus, unspecified
CPT/HCPCS: 74178; J3490

== ENCOUNTER 2020-01-21 05:19 | Outpatient (CLI) | payer BC, SELFPAY ==
[2020-01-21 08:54] LABS: Bacteria Moderate HPF (Negative); C & S Indicated? Yes; Crystals Moderate Amorphous HPF (Negative); Epithelial Cells Negative HPF (Negative); Mucus Moderate (Negative); WBC 20-50 HPF (0-5)
[2020-01-21 09:07] LABS: Anion Gap 7.7 mmol/L (3-11); BUN 16 mg/dL (7-18); CO2 28.3 mmol/L (21.0-32.0); CREATININE 1.14 mg/dL (0.70-1.30); Calcium 8.9 mg/dL (8.5-10.1); Chloride 104 mmol/L (98-107); Glucose 99 mg/dL (74-106); Sodium 140 mmol/L (136-145)
[2020-01-21 09:08] LABS: Calculated LDL 85 mg/dL (<100); Cholesterol 157 mg/dL (<200); HDL Cholesterol 56 mg/dL (40-60); Triglyceride 84 mg/dL (<150)
[2020-01-21 09:25] LABS: Uric Acid 5.1 mg/dL (3.5-7.2)
== END 2020-01-21 05:39 ==
PROVIDERS: Family Medicine; Nurse Practitioner Gerontology; PCP Internal Medicine; Visit Provider Internal Medicine
DX: E78.5 Hyperlipidemia, unspecified (principal); E78.00 Pure hypercholesterolemia, unspecified; R31.9 Hematuria, unspecified; N20.0 Calculus of kidney
CPT/HCPCS: 80048; 80061; 81015; 82565; 84550; 87086

== ENCOUNTER 2020-03-03 02:15 | Outpatient (CLI) | payer BC, SELFPAY ==
[2020-03-03 11:08] LABS: Vitamin D 25 Total 39.5 ng/ml (30-100)
== END 2020-03-03 02:35 ==
PROVIDERS: PCP Internal Medicine; Visit Provider Physical Medicine & Rehabilitation
DX: E55.9 Vitamin D deficiency, unspecified (principal); M89.9 Disorder of bone, unspecified
CPT/HCPCS: 36415; 82306

== ENCOUNTER 2020-05-26 11:21 | Outpatient (REF) | payer BC, SELFPAY ==
[2020-05-26 19:00] LABS: PSA, Screening 5.1 ng/mL (0.0-3.5)
== END 2020-05-26 11:22 | disposition home or self-care (01) ==
LOC: LBN 11:21
PROVIDERS: PCP Internal Medicine; Visit Provider Nurse Practitioner Gerontology
DX: R97.20 Elevated prostate specific antigen [PSA] (principal)
CPT/HCPCS: 84153

== ENCOUNTER 2020-07-12 01:40 | Outpatient (CLI) | payer BC, SELFPAY ==
--- NOTE | 2020-07-12 07:00 | DI.US_ITS ---
EXAM: US RENAL CLINICAL HISTORY: monitor known stones,n20.0. TECHNIQUE: Reyez scale, color and spectral Doppler were used. COMPARISON: US US RENAL from 09/08/2019 FINDINGS: Renal size in cm: Right: 11.0. Left: 11.6. Echogenicity: Normal. Hydronephrosis: No. Cyst or mass: No. Nephrolithiasis: Bilateral nephrolithiasis. The largest on the left is in the midpole and measures 9 mm. The largest on the right is in the midpole and measures 9 mm. Other findings: None. Bladder:No bladder wall thickening. There are several bladder stones present. Ureteral jets: Right: Visualized and unremarkable. Left: Visualized and unremarkable. Prevoid vol:221 cc Postvoid vol:47 cc Prostate: 118 cc Renal color flow: Symmetric and within normal limits. IMPRESSION: 1. Bilateral nephrolithiasis no evidence of hydronephrosis. 2. Prostatomegaly. 3. Several urinary bladder stones. 4. Large postvoid bladder volume likely secondary to the enlarged prostate gland. DATA REPOSITORY:
== END 2020-07-12 02:00 ==
PROVIDERS: PCP Internal Medicine; Visit Provider Urology
DX: N20.0 Calculus of kidney (principal); N40.0 Benign prostatic hyperplasia without lower urinary tract symptoms
CPT/HCPCS: 76770

== ENCOUNTER 2020-08-18 02:08 | Outpatient (CLI) | payer BC, SELFPAY ==
[2020-08-18 18:54] LABS: PSA, Diagnostic 4.1 ng/mL (0.0-3.5)
== END 2020-08-18 02:09 | disposition home or self-care (01) ==
LOC: LBO 02:08
PROVIDERS: PCP Internal Medicine; Visit Provider Nurse Practitioner Gerontology
DX: R97.20 Elevated prostate specific antigen [PSA] (principal)
CPT/HCPCS: 84153

== ENCOUNTER 2020-12-01 04:26 | Outpatient (CLI) | payer BC, SELFPAY ==
[2020-12-01 17:08] LABS: Calculated LDL 58 mg/dL (<100); Cholesterol 137 mg/dL (<200); HDL Cholesterol 53 mg/dL (40-60); Triglyceride 134 mg/dL (<150)
[2020-12-02 17:19] LABS: PSA, Diagnostic 4.8 ng/mL (0.0-3.5)
== END 2020-12-01 04:27 | disposition home or self-care (01) ==
LOC: LBO 04:26
PROVIDERS: Internal Medicine Cardiovascular Disease; PCP Internal Medicine; Visit Provider Nurse Practitioner Gerontology
DX: R97.20 Elevated prostate specific antigen [PSA] (principal); I25.10 Atherosclerotic heart disease of native coronary artery without angina pectoris
CPT/HCPCS: 36415; 80061; 84153

== ENCOUNTER 2021-01-10 08:48 | Outpatient (REF) | payer BC, SELFPAY ==
[2021-01-10 10:39] LABS: C Diff PCR Negative (Negative)
== END 2021-01-10 08:49 | disposition home or self-care (01) ==
LOC: LBN 08:48
PROVIDERS: Family Medicine; PCP Internal Medicine; Visit Provider Internal Medicine
DX: R19.7 Diarrhea, unspecified (principal)
CPT/HCPCS: 87329; 87493

== ENCOUNTER 2021-02-28 01:12 | Outpatient (CLI) | payer BC, SELFPAY ==
--- NOTE | 2021-02-28 08:00 | DI.RAD_ITS ---
Exam(s) XR ABDOMEN FLAT PLATE EXAM: 2D digital imaging was performed. CLINICAL HISTORY: right flank pain ? if stone in kidney moved out,h/o renal calculi, z87.442. COMPARISON: CR ABD FLAT UPRIGHT PA CHEST from 09/24/[address] ABDOMEN PELVIS WO/W from 01/11/[address] ABDOMEN PELVIS WO/W from 01/11/2020 TECHNIQUE: Supine views of the abdomen was performed. FINDINGS: BOWEL GAS PATTERN: There is a moderate amount of stool throughout the colon. No evidence of obstruct ion. FREE AIR: None. CALCIFICATIONS: There are calcifications overlying the renal shadows bilaterally suggestive of nephro lithiasis. There are calcifications to the left of the L3 vertebral body which may be ureteral or va scular. There is a round calcification to the left of the coccyx in the pelvis which may represent a distal ureteral or bladder stone. This was not present on the x-ray from 09/24/2010 OSSEOUS STRUCTURES: Normal for age. OTHER FINDINGS: None. IMPRESSION: 1. Bilateral nephrolithiasis. 2. Extrarenal calcifications which may lie within the ureter or urinary bladder as described above. A renal colic CT should be considered for further evaluation. DATA REPOSITORY: RADIATION DOSE DELIVERED:
== END 2021-02-28 01:32 ==
PROVIDERS: PCP Internal Medicine; Visit Provider Nurse Practitioner Gerontology
DX: R10.31 Right lower quadrant pain (principal); N20.0 Calculus of kidney; Z87.442 Personal history of urinary calculi
CPT/HCPCS: 74018

== ENCOUNTER 2021-03-02 02:20 | Outpatient (CLI) | payer BC, SELFPAY ==
[2021-03-03 16:42] LABS: Free PSA/PSA Ratio 0.28 ratio
== END 2021-03-02 02:21 | disposition home or self-care (01) ==
LOC: LBO 02:20
PROVIDERS: PCP Internal Medicine; Visit Provider Nurse Practitioner Gerontology
DX: R97.20 Elevated prostate specific antigen [PSA] (principal); R31.9 Hematuria, unspecified
CPT/HCPCS: 36415; 82565; 84154

== ENCOUNTER 2021-03-28 00:58 | Outpatient (CLI) | payer BC, SELFPAY ==
[2021-03-28 11:11] LABS: Source Nasal/Nares
[2021-03-28 14:15] LABS: COVID-19 PCR Negative (Negative)
== END 2021-03-28 00:59 | disposition home or self-care (01) ==
LOC: LBO 00:59
PROVIDERS: Urology; PCP Internal Medicine; Visit Provider Nurse Practitioner Gerontology
DX: Z11.52 Encounter for screening for COVID-19 (principal)
CPT/HCPCS: 87635

== ENCOUNTER 2021-03-30 10:48 | Day surgery (SDC) | payer BC, SELFPAY ==
[2021-03-30] VITALS (9 sets, daily range): BP systolic 99–137; BP diastolic 59–91; PULSE 56–77; RESP 16–21; TEMP 36.2–36.4; O2SAT 94–98; BMI 27.8
--- NOTE | 2021-03-30 06:16 | W.ANESPRE ---
General Info Date of Service Date Performed: 03/30/21 Height: 6 ft Weight: 92.986 kg Body Mass Index (BMI): 27.8 Surgical Procedure: Operation Date: 03/30/21 12:40 Proposed Procedures Side Surgeon p Cystoscopy/Laser/Retrograde/Ureteroscopy/Stone Manipulation Left Ottoniel Mcintyre MD Meds Allergies and Home Medications Allergies Allergy/AdvReac Type Severity Reaction Status Date / Time cefuroxime axetil AdvReac Unknown Hives Verified 03/30/21 11:07 [From Ceftin] clindamycin AdvReac Unknown Hives Verified 03/30/21 11:07 paroxetine AdvReac Unknown active Verified 03/30/21 11:07 dreams dust Allergy Unknown Uncoded 03/30/21 11:07 Home Medication Medication Instructions Recorded diphenhydramine HCl [Benadryl] 25 mg PO PRN cap 03/11/17 cholecalciferol (vitamin D3) 25 2,000 unit PO DAILY 04/01/18 mcg (1,000 unit) capsule tetracycline 500 mg capsule 250 mg PO TID cap 12/08/20 rosuvastatin 5 mg tablet 5 mg PO DAILY #90 tab 03/28/21 Current Visit Medications: Current Medications Generic Name Dose Route Start Last Admin Trade Name Freq PRN Reason Stop Dose Admin Ringer's Solution 1,000 mls @ 80 mls/hr 03/30/21 06:00 IV 04/28/21 23:59 INFUSION GALLO Ciprofloxacin 400 mg in 200 mls @ 200 mls/hr 03/30/21 06:00 Cipro I.V. 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 Plantar fasciitis, bilateral M72.2 Agoraphobia without history of panic disorder 04/22/86 F40.02 Antibiotic long-term use 10/04/15 Z79.2 Benign neoplasm of large intestine 03/02/09 D12.6 ED (erectile dysfunction) 10/27/13 N52.9 Elevated prostate specific antigen [PSA] 01/28/17 R97.20 Extrinsic asthma, unspecified 05/12/12 J45.909 Family history of colon cancer 09/14/11 Z80.0 GERD (gastroesophageal reflux disease) 01/18/15 K21.9 History of aortic aneurysm repair 03/24/15 Z98.890, 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/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30 Diverticulitis of intestine 01/18/15 K57.92 Neuralgia 01/18/15 M79.2 Left ureteral stone N20.1 Medical History Medical History Aortic aneurysm (12/02/14) 5.14 cm ascending aorta CTA chest and abdomen w/out contrast Atrioventricular block, complete Bacteremia due to Escherichia coli (01/18/15) Giardiasis Palmar erythema (08/07/16) Right palm , responds to Epsom salts, transiently to steroid cream Pruritic rash (11/19/16) Right palm , responds to Epsom salts, transiently to steroid cream Surgical History Surgical History colonoscopy w/ bx (07/29/17) H/O colonoscopy (~04/26/14) w/ bx H/O elbow surgery (~1986) H/O vasectomy History of laryngoscopy (~12/21/14) History of temporal artery biopsy (~11/27/14) bilaterally History of wisdom tooth extraction Hx of colectomy hx of ruptured colon with colostomy and reversal. 18 inches less of intestine per pt. Hx of colostomy (~08/2010) [place], perforated diverticulitis Re-Anastomosis 11/2010 Hx of cystoscopy kidney stone removal; June 2020 Prostate Biopsy with imaging guidance (11/25/14) Dr Hoang S/P tonsillectomy (~1971) s/p valve sparing root replacement Done at [facility] [place] 03/13/15 Tobacco Smoking/Tobacco Use Status: Never Alcohol Alcohol Intake: never Substance Use Substance use: Never Substance use type: does not use Vital Signs and Lab Results Vital Signs Most Recent Vital Signs in EMR: Temp Pulse Resp BP Pulse Ox 36.3 C L 72 16 137/86 98 03/30/21 11:05 03/30/21 11:05 03/30/21 11:05 03/30/21 11:05 03/30/21 11:05 Lab Results Blood Type / Crossmatch: No Data to Display Complete Blood Count: No Data to Display Complete Metabolic Panel: Creatinine 1.0 mg/dL (0.70-1.30) 03/02/21 08:19 03/02/21 Estimated GFR/1.73 m2 >= 60.00 (mL/min/1.73m2) 03/02/21 08:19 03/02/21 Liver Function Panel: No Data to Display Coagulation Panel: No Data to Display Cardiac Panel: No Data to Display Arterial Blood Gas: No Data to Display Venous Blood Gas: No Data to Display Pancreas Panel: No Data to Display Thyroid Panel: No Data to Display Infectious Disease: Coronavirus (COVID-19)(PCR) Negative (Negative) 03/28/21 08:35 03/28/21 Coronavirus 2019 Source Nasal/Nares 03/28/21 08:35 03/28/21 Blood Cultures: No Data to Display Toxicology Panel: No Data to Display Imaging and Studies Imaging and Studies Study information below may be from another EMR and interpreted by another provider. Please see original notes in EMR for more complete details. Stress Test Summary: 09/2019: 13 METS, no symptoms or evidence of ischemia. upsloping ST depression in the lateral leads towards the end of exercise likely representing j-junction depression. LVEF 51%, no ischemia on imaging portion. Echocardiogram Summary: 2019: LVEF 60-65%, mild concentric LVH, mild LA dilation. Mild (mean 11 mmhg), trace AR, mild TR, trace to mild MR. Ascending Ao conduit 3.8-[address] Summary: head/neck CT 2015: negative carotid and intracranial CT, no carotid dissection. Carotid Artery Summary:: 2015: no significant stenosis. Anesthesia Assessment and Plan Anesthesia History Personal History: No History of Anesthesia Complications Family History: No Family History of Anesthesia Complications Exercise Tolerance Exercise Tolerance: Metabolic Equivalents>4 Pertinent Negatives Pertinent Negatives: No Symptoms of GERD, No Major Cardiovascular Symptoms or Complaints, No Major Pulmonary Symptoms or Complaints and No History of CVA/TIA Cardiac & Pulmonary Exam Cardiac Exam: Normal S1/S2 Heart Sounds Pulmonary Exam: Clear Bilateral Breath Sounds Implantable Cardiac Device Does patient have a Pacemaker or an ICD?: No Airway Exam Known Difficult Airway: No Mallampati Class: 1 Mouth Opening: Normal (> 3cm) Thyromental Distance: Greater than 3 cm Neck Range of Motion: Full ROM Neck Circumference: Normal Teeth Condition: Normal Dentition and Other (Permanent retainer bottom teeth) ASA Classification ASA Score: ASA 3 Emergency Case?: No NPO Status NPO Status: NPO Clears >2 hours, Solids >8 hours Anesthesia Plan Resuscitation Status: Full Code Anesthesia Technique: General Anesthesia Airway Planned: LMA Monitors Used: Standard Monitors and SedLine Preoperative Comments:: 61 yo male for cysto/stones. Sig PMHx: CAD (LAD 45%, on ASA), s/p ascending Ao anerysm repair, GERD, never smoker/etoh. Feeling well since aneurysm repair. Previous Anes: no complications. - Elective lightwand, easy mask. - Mac 4 grade 1
--- NOTE | 2021-03-30 11:17 | HPE_ITS ---
Date of service: 03/30/21 Time of Service: 11:18 Assessment and Plan Assessment and plan (1) Left ureteral stone: Status: Acute (2) Bladder stone: Status: Acute Assessment and plan: For cystoscopy with treatment of bladder stones. We will plan to do a left retrograde pyelogram and ureteroscopy if his ureteral stone is still present. History of Present Illness History of Present Illness Chief Complaint: Bladder stones Narrative: Maxwell is a 61-year-old male with history of kidney stones and elevated prostate numbers. He did have a prostate biopsy in [address] Mckeon that was negative for all biopsies minus one to the right medial mid that was noted to be high grade PIN. At that time his PSA was his highest recorded in the mid 4's. Since then his PSA numbers have fluctuated. Most recent PSA was 6.0ng/ml with a f/t ration of 0.28. His chance probability of finding prostate cancer on biopsy based upon those numbers was 12%. He is without worrisome signs or symptoms or concerns to his LUTS. Recommended continuing to monitor PSA numbers every 3-6 months. If increase in PSA, then moving ahead with prostate MRI would be the least invasive next step. He does express concern not only about his PSA numbers and the probability of prostate cancer but also about his kidney stones causing him issues. He is getting back into traveling for work and is worried about having stone concerns when not in the area. We discussed recent CTU. In respect for urology, he has extensive bilateral nephrolithiasis. However, there is now a 4 x 3 millimeter nonobstructive calculus in the upper left ureter just beyond the UPJ. There also multiple calculi now evident in the urinary bladder. In the past, he had a ureteroscopy for a left ureteral stone. The stone's chemical analysis was 80% calcium oxalate monohydrate and 20% calcium oxalate dihydrate. He saw blood in the urine over the weekend, but not since. He has no flank pain. Review of Systems Narrative: No fevers or chills Allergic rhinitis, tinnitis. No vision change or dysphasia No diabetes or thyroid Hx COPD. No hemoptysis No chest pain or palpitations Hx GERD. No hepatitis, ulcers, jaundice, diarrhea or constipation Neuralgia. No seizures, strokes No bleeding disorders or anemia No gout PFSH All Active Problems Agoraphobia without history of panic disorder (Acute 04/22/86) Antibiotic long-term use (Acute 10/04/15) Benign neoplasm of large intestine (Acute 03/02/09) ED (erectile dysfunction) (Acute 10/27/13) Elevated prostate specific antigen [PSA] (Acute 01/28/17) Extrinsic asthma, unspecified (Acute 05/12/12) Family history of colon cancer (Acute 09/14/11) GERD (gastroesophageal reflux disease) (Acute 01/18/15) History of aortic aneurysm repair (Acute 03/24/15) Hyperuricosuria (Acute 01/28/17) Kidney stone (Acute 08/20/10) Migraine aura without headache (Acute 09/25/17) Mood disturbance (Acute 06/05/16) Obstructive sleep apnea syndrome (Acute 09/14/11) PIN (prostatic intraepithelial neoplasia) (Acute 11/22/14) Paresthesias (Acute 03/28/15) Seasonal allergic rhinitis (Acute 09/14/11) Tinnitus (Acute 01/18/15) Vitamin D deficiency (Acute 01/18/15) Mixed hyperlipidemia (Acute 02/25/18) Arteriosclerosis of coronary artery (Acute ~01/2016) Tick bite (Acute 03/31/13) Pruritic rash (Acute 11/19/16) Paresthesia of right upper limb (Acute 10/27/13) Diverticulosis of colon without diverticulitis (Acute 09/14/11) Diverticulitis of intestine (Acute 01/18/15) Neuralgia (Acute 01/18/15) Left ureteral stone (Acute) Plantar fasciitis, bilateral (Acute) Neuropathy, intercostal nerve (Acute) Shortness of breath (Acute) Bladder stone (Acute) Coronary artery disease (Chronic) Medical History Aortic aneurysm (12/02/14) 5.14 cm ascending aorta CTA chest and abdomen w/out contrast Atrioventricular block, complete Bacteremia due to Escherichia coli (01/18/15) Giardiasis Palmar erythema (08/07/16) Right palm , responds to Epsom salts, transiently to steroid cream Pruritic rash (11/19/16) Right palm , responds to Epsom salts, transiently to steroid cream Surgical History colonoscopy w/ bx (07/29/17) H/O colonoscopy (~04/26/14) w/ bx H/O elbow surgery (~1986) H/O vasectomy History of laryngoscopy (~12/21/14) History of temporal artery biopsy (~11/27/14) bilaterally History of wisdom tooth extraction Hx of colectomy hx of ruptured colon with colostomy and reversal. 18 inches less of intestine per pt. Hx of colostomy (~08/2010) [place], perforated diverticulitis Re-Anastomosis 11/2010 Hx of cystoscopy kidney stone removal; June 2020 Prostate Biopsy with imaging guidance (11/25/14) Dr Hoang S/P tonsillectomy (~1971) s/p valve sparing root replacement Done at [facility] – [place] 03/13/15 Family History Mother Neoplasm AGE 72, Colon cancer, LARGE SCALE ORGAN FAILURE Father , AGE 62 PANCREATIC CA Neoplasm Sister , PNEUMONIA AGE 49 CREST syndrome Colonic polyp Maternal Grandfather Neoplasm COLON CANCER Social History (Updated 07/27/20 @ 08:47 by Lala Treviño LPN) Smoking/Tobacco Use Status: Never Smoking risk assessment performed?: Yes Alcohol Intake: never Drug use: Never Substance use type: does not use Household members: other Details: self, and son Housing: house Number of Children: 2 number of grandchildren: 0 Communication Needs: Hard of Hearing Education Level: master's degree Do you need help understanding health information?: Never current occupation: Retired What is your relationship status?: Panel score (0-1 are the most socially isolated patients): 1 What type of physical activity do you participate in: other Details: active da taniya Duration: 60-90 minutes/day Frequency: 3-4 times per week Seatbelt use: always Water heater temp set <120 deg: Yes Working smoke detector in home: Yes Fire extinguisher in home: Yes Carbon monox detector in home: Yes Do you feel safe at home: Yes Do you feel safe in your relationship?: Yes Meds Allergies and Home Medications Allergies Allergy/AdvReac Type Severity Reaction Status Date / Time cefuroxime axetil AdvReac Unknown Hives Verified 03/30/21 11:07 [From Ceftin] clindamycin AdvReac Unknown Hives Verified 03/30/21 11:07 paroxetine AdvReac Unknown active Verified 03/30/21 11:07 dreams dust Allergy Unknown Uncoded 03/30/21 11:07 Home Medications Medication Instructions Recorded Confirmed Type diphenhydramine HCl [Benadryl] 25 mg PO PRN cap 03/11/17 03/30/21 History cholecalciferol (vitamin D3) 25 2,000 unit PO DAILY 04/01/18 03/30/21 History mcg (1,000 unit) capsule tetracycline 500 mg capsule 250 mg PO TID cap 12/08/20 03/30/21 History rosuvastatin 5 mg tablet 5 mg PO DAILY #90 tab 03/28/21 03/30/21 Rx Exam Const General: cooperative and comfortable Neck Neck: supple Resp Effort & Inspection: normal respiratory effort Auscultation: clear to auscultation bilaterally Cardio Rate: regular rate Rhythm: regular rhythm GI Palpation: soft and no masses Neuro General: patient alert, patient awake and patient oriented x3
[2021-03-30] MEDS: Lactated Ringers 1,000 ML 80 ML IV (11:22)
[2021-03-30] MEDS: CIPROFLOXACIN 400 MG/200 ML BAG 200 MG IVPB (11:23)
[2021-03-30] MEDS: Lidocaine 2% Jelly 6 ML SYR (12:31)
[2021-03-30] MEDS: Omnipaque 300 MG/ML 50 ML BTL (12:33)
--- NOTE | 2021-03-30 12:40 | DI.RAD_ITS ---
Exam(s) XR RETROGRADE IN OR EXAM: XR RETROGRADE IN OR CLINICAL HISTORY: Left ureteral stone. TECHNIQUE: 2D digital imaging was performed. COMPARISON: No exams were available for comparison FINDINGS: Fluoroscopy was provided during urologic procedure. Please see procedure report for details. Total fluoroscopy time 38 seconds. Cumulative dose 7.11mGy IMPRESSION: DATA REPOSITORY: RADIATION DOSE DELIVERED:
--- NOTE | 2021-03-30 13:04 | W.PM.DSUDISC ---
Discharge Plan Disposition Patient Disposition: HOME Condition: Stable Discharge Details Reason For Visit: bladder stones Attending Provider: Ottoniel Mcintyre Primary Care Provider: Mary Rodgers Home Meds and New Rx's Prescriptions: No Action tetracycline 500 mg capsule 250 mg PO TID RF: 0 cholecalciferol (vitamin D3) 1,000 unit capsule 2,000 unit PO DAILY RF: 0 finasteride 5 mg tablet 5 mg PO DAILY Qty: 90 RF: 0 diphenhydramine HCl [Benadryl] 25 MG capsule 25 mg PO PRN RF: 0 rosuvastatin [Crestor] 5 mg tablet 5 mg PO DAILY Qty: 90 RF: 3 Discharge Instructions Additional Instructions: Remove norman in DSU once no bleeding around catheter Followup@ 4 to 8 weeks with renal US may use tylenol and over the counter NSAIDs for pain control prescription for finasteride (to shrink prostate and blood vessels in prostate) sent to pharmacy Activity:: Activity as Tolerated Shower/Bathe:: 24 hours Diet:: As Tolerated Discharge Orders Discharge Orders: Discharge Order (Routine); Ordered 03/30/21 Ordered By: Ottoniel Mcintyre DS: Diagnosis Discharge Diagnosis (1) Left ureteral stone: Status: Acute (2) Bladder stone: Status: Acute
--- NOTE | 2021-03-30 13:13 | W.PM.OP ---
Date of service: 03/30/21 Time of Service: 13:13 Operative Note Operative Note DATE OF PROCEDURE: 03/30/21 PRE-OP DIAGNOSIS: 1. Bladder stones 2. Left ureteral stone POST-OP DIAGNOSIS: same PROCEDURE: Cystoscopy, left retrograde pyelogram, holmium laser lithotripsy of bladder stone, evacuation of bladder stone fragments SURGEON: Ottoniel Mcintyre ANESTHESIA TYPE: Local By Surgeon and General LMA/ETT Refer to Anesthesia Record ESTIMATED BLOOD LOSS: 50 PATHOLOGY: other (bladder stones for chemical analysis) COMPLICATIONS: None Patient was transported to: PACU Patient's condition: stable Implants: 16 [place] norman catheter with 10 cc sterile water in balloon Indications: This is a 61-year-old gentleman who has a past history of kidney stones. He had undergone ureteroscopy with holmium laser lithotripsy of a left ureteral stone 1 to 2 years ago. More recently, he has been having intermittent gross hematuria. On CT urogram, he was found to have multiple bladder stones as well as a nonobstructing left ureteral stone. He had bilateral nonobstructing kidney stones. He presents now for cystoscopy with treatment of his bladder stones. We are prepared to do left ureteroscopy should his left ureteral stone still be present. Findings: No residual left ureteral stone Multiple bladder stones Procedure Description: The patient was brought to the operating room on 03/30/2021. He was given a dose of preoperative IV antibiotics. After successful induction of general anesthesia, he was placed in the dorsal lithotomy position. His genitalia was prepped and draped. 2% Xylocaine jelly was instilled into the urethra to act as a local anesthetic. A 22 [place] rigid cystoscope was passed through the urethra into the bladder. The urethra and bladder were inspected with a 30 degree lens. The pendulous, bulbar and membranous urethra was all appeared normal with no strictures. The prostatic urethra showed trilobar enlargement with a large median lobe. The bladder neck was entered and the bladder mucosa was inspected. The bladder was moderately trabeculated. Behind the median lobe, we identified multiple bladder stones. We were able to visualize both ureteral orifices. No blood was seen coming from either side, but there was some edema around the left ureteral orifice. The orifice was cannulated with a 5 [place] access catheter. A retrograde film was obtained by injecting Omnipaque through the access catheter under fluoroscopic guidance. No filling defects were identified in the left ureter. The left collecting system and ureter drained promptly on delayed films. Based on the retrograde pyelogram, I suspected that his left ureteral stone had passed into the bladder. We then utilized a 932 ?m holmium laser fiber to fragment his bladder stones. We used a power setting of 800 and a rate of 8. As the stone was fragmented, we were able to hand irrigate out the majority of the fragments. Some of the fragments were then grasped and alligator forceps and removed. At the completion of the procedure, no large stone fragments were identified in the bladder. We filled the bladder with irrigant and removed the cystoscope. I passed a 16 [place] Norman catheter through the urethra into the bladder. We inflated the catheter balloon with 10 cc of sterile water and left the catheter hooked to gravity drainage. As the urine clears in the recovery room, the catheter will be removed. The patient tolerated this procedure well.
--- NOTE | 2021-03-30 14:30 | W.ANESPOSTOP ---
Postoperative Evaluation Date, Time and Location Date Performed: 03/30/21 Time Performed: 14:30 Patient Location: Day Surgery Unit Vital Signs Most Recent Imported Vital Signs: Most Recent Vital Signs Temp Pulse Resp BP Pulse Ox 36.2 C L 60 18 107/74 98 03/30/21 13:55 03/30/21 13:55 03/30/21 13:55 03/30/21 13:55 03/30/21 13:55 Pain Score Most Recent Pain Score: Most Recent Pain Score Pain Level 3 03/30/21 13:55 Assessment Mental Status: Awake (Alert & Oriented to Patient Baseline) Airway and Respiratory Function: Patent airway with normal (patient baseline) respiratory exam Cardiovascular Function: Hemodynamically Stable Hydration Status: Adequately Hydrated Nausea & Vomiting: No Nausea or Vomiting Pain: Pt. Denies Any Pain Peripheral Nerve Block: Patient did not receive a nerve block
== END 2021-03-30 16:12 | disposition home or self-care (01) ==
PROVIDERS: PCP Internal Medicine; Visit Provider Urology
PROC: (CPT 52317; principal; 2021-03-30 12:30)
DX: N21.0 Calculus in bladder (principal); G47.33 Obstructive sleep apnea (adult) (pediatric); K21.9 Gastro-esophageal reflux disease without esophagitis
CPT/HCPCS: 52317; 74420; 82365; J0744; J1100; J2001; J2405; J2704; Q9967

== ENCOUNTER 2021-05-09 02:30 | Outpatient (CLI) | payer BC, SELFPAY ==
[2021-05-11 05:53] LABS: Vitamin D 25 Total 32.7 ng/mL (30-100)
== END 2021-05-09 02:31 | disposition home or self-care (01) ==
LOC: LBO 02:30
PROVIDERS: PCP Internal Medicine; Visit Provider Physical Medicine & Rehabilitation
DX: E55.9 Vitamin D deficiency, unspecified (principal); M89.9 Disorder of bone, unspecified
CPT/HCPCS: 36415; 82306

== ENCOUNTER 2021-12-01 01:26 | Outpatient (CLI) | payer BC, SELFPAY ==
[2021-12-01 20:43] LABS: PSA, Diagnostic 1.6 ng/mL (<=4.5)
== END 2021-12-01 01:27 | disposition home or self-care (01) ==
LOC: LBO 01:26
PROVIDERS: PCP Internal Medicine; Visit Provider Urology
DX: R97.20 Elevated prostate specific antigen [PSA] (principal)
CPT/HCPCS: 36415; 84153

== ENCOUNTER 2022-09-04 08:19 | Outpatient (CLI) | payer BC, SELFPAY ==
--- NOTE | 2022-09-04 08:15 | RT.EKG_ITS ---
APPROVED REPORT Exam: Resting ECG Reason for Exam: CAD Patient Location: O HR:96 bpm ECG Measurements Heart Rate 96 AXIS IN 164 P 78 QRSd 95 QRS 65 QT 337 T 37 QTc 426 Conclusion Sinus rhythm...normal P axis, V-rate 50- 99 Probable left atrial enlargement...P >50mS, <-0.10mV V1 Otherwise normal ECG
== END 2022-09-04 08:20 | disposition home or self-care (01) ==
LOC: DI.CARD 08:20
PROVIDERS: PCP Family Medicine; Visit Provider Internal Medicine Cardiovascular Disease
DX: I25.10 Atherosclerotic heart disease of native coronary artery without angina pectoris (principal); Z86.79 Personal history of other diseases of the circulatory system; Z98.890 Other specified postprocedural states
CPT/HCPCS: 93010

== ENCOUNTER 2022-09-14 09:04 | Outpatient (REF) | payer BC, SELFPAY ==
[2022-09-14 20:29] LABS: PSA, Diagnostic 2.3 ng/mL (<=4.5)
== END 2022-09-14 09:05 | disposition home or self-care (01) ==
LOC: LBO 09:04
PROVIDERS: PCP Family Medicine; Visit Provider Urology
DX: R97.20 Elevated prostate specific antigen [PSA] (principal)
CPT/HCPCS: 36415; 84153

== ENCOUNTER 2023-01-22 16:49 | Outpatient (REF) | payer BC, SELFPAY | END 2023-01-22 16:50 | disposition home or self-care (01) | LOC: LBN 16:49 | PROVIDERS: PCP Family Medicine; Visit Provider Family Medicine | DX: R19.7 Diarrhea, unspecified (principal) | CPT/HCPCS: 87329 ==

== ENCOUNTER 2023-02-19 02:50 | Outpatient (CLI) | payer BC, SELFPAY ==
[2023-02-19 07:56] LABS: Calculated LDL 96 mg/dL (<100); Cholesterol 165 mg/dL (<200); HDL Cholesterol 57 mg/dL (40-60); Triglyceride 64 mg/dL (<150)
== END 2023-02-19 02:51 | disposition home or self-care (01) ==
LOC: LBO 02:50
PROVIDERS: PCP Family Medicine; Referring Provider Emergency Medicine; Visit Provider Emergency Medicine
DX: I25.10 Atherosclerotic heart disease of native coronary artery without angina pectoris (principal)
CPT/HCPCS: 36415; 80061

== ENCOUNTER 2023-03-07 07:33 | Day surgery (SDC) | payer BC, SELFPAY ==
[2023-03-07] VITALS (9 sets, daily range): BP systolic 84–125; BP diastolic 49–81; PULSE 50–59; RESP 14–16; TEMP 36.3–36.6; O2SAT 96–99; BMI 28.4
[2023-03-07] MEDS: Lactated Ringers 1,000 ML 80 ML IV (08:15)
--- NOTE | 2023-03-07 08:18 | W.ANESPRE ---
General Info Date of Service Date Performed: 03/07/23 Height: 5 ft 11.65 in Weight: 94.1 kg Body Mass Index (BMI): 28.4 Surgical Procedure: Operation Date: 03/07/23 09:25 Proposed Procedure Side Surgeon p Cystoscopy/Laser/Retrograde/Ureteroscopy, Bladder Stones Left Ottoniel Mcintyre MD Meds Allergies and Home Medications Allergies Allergy/AdvReac Type Severity Reaction Status Date / Time cefuroxime axetil AdvReac Unknown Hives Verified 03/07/23 08:01 [From Ceftin] clindamycin AdvReac Unknown Hives Verified 03/07/23 08:01 paroxetine AdvReac Unknown active Verified 03/07/23 08:01 dreams dust Allergy Unknown sneezing Uncoded 03/07/23 08:01 Home Medication Medication Instructions Recorded diphenhydramine HCl 25 mg capsule 25 mg PO PRN 03/11/17 (Benadryl) aspirin 81 mg tablet,delayed 81 mg PO DAILY 06/02/21 release cholecalciferol (vitamin D3) 25 1,000 unit PO DAILY 01/30/22 mcg (1,000 unit) capsule finasteride 5 mg tablet See Rx Instructions .Route 08/28/22 .COMPLEX #90 tabs clarithromycin 250 mg tablet 250 mg PO DAILY 01/21/23 clotrimazole 1 % topical cream 1 applic topical BID #45 grams 01/21/23 hydroxychloroquine 100 mg tablet 100 mg PO BID 01/21/23 ezetimibe 10 mg tablet (Zetia) 10 mg PO DAILY #90 tabs 02/26/23 rosuvastatin 10 mg tablet (Crestor) 10 mg PO DAILY #90 tabs 02/26/23 Current Visit Medications: Current Medications Generic Name Dose Route Start Last Admin Trade Name Freq PRN Reason Stop Dose Admin Ringer's Solution 1,000 mls @ 80 mls/hr 03/07/23 06:00 IV 03/21/23 23:59 INFUSION GALLO Ciprofloxacin 400 mg in 200 mls @ 200 mls/hr 03/07/23 06:00 Cipro I.V. 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 Impacted cerumen H61.20 Cementosis K03.4 Ganglion cyst M67.40 Tinea manus B35.2 Agoraphobia without history of panic disorder 04/22/86 F40.02 Antibiotic long-term use 10/04/15 Z79.2 Benign neoplasm of large intestine 03/02/09 D12.6 ED (erectile dysfunction) 10/27/13 N52.9 Elevated prostate specific antigen [PSA] 01/28/17 R97.20 Extrinsic asthma, unspecified 05/12/12 J45.909 Family history of colon cancer 09/14/11 Z80.0 GERD (gastroesophageal reflux disease) 01/18/15 K21.9 History of aortic aneurysm repair 03/24/15 Z98.890, 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/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30 Diverticulitis of intestine 01/18/15 K57.92 Neuralgia 01/18/15 M79.2 Plantar fasciitis, bilateral M72.2 Neuropathy, intercostal nerve G58.0 Shortness of breath R06.02 Bladder stone N21.0 Coronary artery disease I25.10 Medical History Medical History Giardiasis Left ureteral stone Bacteremia due to Escherichia coli (01/18/15) Atrioventricular block, complete Pruritic rash (11/19/16) Right palm , responds to Epsom salts, transiently to steroid cream Palmar erythema (08/07/16) Right palm , responds to Epsom salts, transiently to steroid cream Aortic aneurysm (12/02/14) 5.14 cm ascending aorta CTA chest and abdomen w/out contrast Surgical History Surgical History Hx of cystoscopy kidney stone removal; June 2020 Hx of colectomy hx of ruptured colon with colostomy and reversal. 18 inches less of intestine per pt. History of laryngoscopy (~12/21/14) H/O colonoscopy (~04/26/14) w/ bx History of temporal artery biopsy (~11/27/14) bilaterally H/O vasectomy History of wisdom tooth extraction S/P tonsillectomy (~1971) H/O elbow surgery (~1986) Hx of colostomy (~08/2010) [place], perforated diverticulitis Re-Anastomosis 11/2010 s/p valve sparing root replacement Done at [facility] [place]/15 colonoscopy w/ bx (07/29/17) Prostate Biopsy with imaging guidance (11/25/14) Dr Hoang Tobacco Smoking/Tobacco Use Status: Never Alcohol Alcohol Intake: never Substance Use Substance use: Never Substance use type: does not use Vital Signs and Lab Results Vital Signs Most Recent Vital Signs in EMR: Most Recent Vital Signs Temp Pulse Resp BP Pulse Ox 36.6 C 59 L 16 125/81 99 03/07/23 08:02 03/07/23 08:02 03/07/23 08:02 03/07/23 08:02 03/07/23 08:02 Lab Results Blood Type / Crossmatch: No Data to Display Complete Blood Count: No Data to Display Complete Metabolic Panel: No Data to Display Liver Function Panel: No Data to Display Coagulation Panel: No Data to Display Cardiac Panel: No Data to Display Arterial Blood Gas: No Data to Display Venous Blood Gas: No Data to Display Pancreas Panel: No Data to Display Thyroid Panel: No Data to Display Infectious Disease: No Data to Display Blood Cultures: No Data to Display Toxicology Panel: No Data to Display Imaging and Studies Imaging and Studies Study information below may be from another EMR and interpreted by another provider. Please see original notes in EMR for more complete details. EKG Summary: 09/04/22: Exam: Resting ECG Reason for Exam: CAD Patient Location: O HR:96 bpm ECG Measurements Heart Rate 96 AXIS W[place] 164 P 78 QRSd 95 QRS 65 QT 337 T37 QTc 426 Conclusion Sinus rhythm...normal P axis, V-rate 50- 99 Probable left atrial enlargement...P >50mS, <-0.10mV V1 Otherwise normal ECG Stress Test Summary: 09/2019: 13 METS, no symptoms or evidence of ischemia. upsloping ST depression in the lateral leads towards the end of exercise likely representing j-junction depression. LVEF 51%, no ischemia on imaging portion. Echocardiogram Summary: 12/08/2022: ([facility] [place] Report): EF 60%, No significant valvular lesions CT Summary: head/neck CT 2015: negative carotid and intracranial CT, no carotid dissection. Carotid Artery Summary:: 2015: no significant stenosis. Anesthesia Assessment and Plan Anesthesia History Personal History: No History of Anesthesia Complications Family History: No Family History of Anesthesia Complications Exercise Tolerance Exercise Tolerance: Metabolic Equivalents>4 Pertinent Negatives Pertinent Negatives: No Symptoms of GERD Cardiac & Pulmonary Exam Cardiac Exam: Normal S1/S2 Heart Sounds Pulmonary Exam: Clear Bilateral Breath Sounds Implantable Cardiac Device Does patient have a Pacemaker or an ICD?: No Airway Exam Known Difficult Airway: No Mallampati Class: 1 Mouth Opening: Normal (> 3cm) Thyromental Distance: Greater than 3 cm Neck Range of Motion: Full ROM Neck Circumference: Normal Teeth Condition: Normal Dentition and Other (Permanent retainer bottom teeth) ASA Classification ASA Score: ASA 3 Emergency Case?: No NPO Status NPO Status: NPO Clears >2 hours, Solids >8 hours Anesthesia Plan Resuscitation Status: Full Code Anesthesia Technique: General Anesthesia Airway Planned: LMA Monitors Used: Standard Monitors
[2023-03-07] MEDS: CIPROFLOXACIN 400 MG/200 ML BAG 200 MG IVPB (08:32)
[2023-03-07] MEDS: Normal Saline Flush 10 ML SYR IV (08:34)
--- NOTE | 2023-03-07 08:58 | HPE_ITS ---
Date of service: 03/07/23 Time of Service: 08:59 Assessment and Plan Assessment and plan (1) Bladder stone: Status: Acute (2) Bilateral kidney stones: Status: Acute Assessment and plan: We will plan cystoscopy and treat his bladder stones either with the holmium laser or with simple extraction. If our visibility remains good and I am able to access the left ureteral orifice, we will plan ureteroscopy and holmium laser lithotripsy of his left sided stones. History of Present Illness History of Present Illness Chief Complaint: Bladder stones Narrative: This is a 63-year-old gentleman who has a history of bilateral kidney stones. He has had ureteroscopy for ureteral stone and cystoscopy and holmium laser lithotripsy of a bladder stone. His stone composition's have been calcium based with varying composition's of calcium oxalate monohydrate, calcium phosphate and calcium oxalate dihydrate. We had been following his stone burden with imaging studies. His most recent studies showed multiple bladder stones, large stone burden in the right kidney and a smaller stone burden on the left. There was no hydronephrosis at the time of his last imaging. He presents now for cystoscopy and holmium laser lithotripsy of his bladder stones. We explained that there is a possibility he may need to stay overnight in the hospital with bladder irrigation if there is quite a bit of hematuria. If visibility remains good during the procedure, I will go ahead and attempt left ureteroscopy to treat the stones on the left side. Review of Systems Narrative: No fevers or chills No vision change or dysphasia No diabetes or thyroid Sleep apnea. No shortness of breath, cough or hemoptysis No chest pain or palpitations Hx GERD. No hepatitis, ulcers, jaundice Hx Migraine headache. No seizures, strokes or peripheral neuropathy No bleeding disorders or anemia No gout PFSH All Active Problems (Updated 03/07/23 @ 09:06 by Ottoniel Mcintyre MD) Bilateral kidney stones (Acute) Endogenous hyperlipidemia (Acute) Lymph node disorder (Acute) Impacted cerumen (Acute) Cementosis (Acute) Ganglion cyst (Acute) Tinea manus (Acute) Agoraphobia without history of panic disorder (Acute 04/22/86) began during grad school; NORTRIPTYLINE EFFECTIVE, WORSE WITH EXCESS CAFFEINE Antibiotic long-term use (Acute 10/04/15) per Dr Theo Daley for possible Lyme related Benign neoplasm of large intestine (Acute 03/02/09) TUBULAR ADENOMA 2008, Hepatic Flexure (hartong) ED (erectile dysfunction) (Acute 10/27/13) Elevated prostate specific antigen [PSA] (Acute 01/28/17) Dr. Hoang neg bx, updated PSA favoirable suggesing previous related to inflammation/inf, Free PSA indeterminate Extrinsic asthma, unspecified (Acute 05/12/12) ? related to GERD Family history of colon cancer (Acute 09/14/11) COLON 02/2009; rpt q 3yr GERD (gastroesophageal reflux disease) (Acute 01/18/15) History of aortic aneurysm repair (Acute 03/24/15) 02/2015 [facility] [place] endocarditis prophylaxis w/ Amox valve sparing aortic root replacement w/ 30 mm Valsalva graft Hyperuricosuria (Acute 01/28/17) Dr. Joel Hoang Kidney stone (Acute 08/20/10) FOUND ON W/U ABD PAIN 08/2010 [facility] COD; POS FH (SISTERS, FATHER) Migraine aura without headache (Acute 09/25/17) Mood disturbance (Acute 06/05/16) decr energy due to Lyme meds Obstructive sleep apnea syndrome (Acute 09/14/11) DENTAL APPLIANCE AND FLONASE, LAST SLEEP STUDY [facility] [place] 06/201112/20/18 polysomnogram at [facility] [place] Sleep Med. CPAP recommended Sleep Study 09/21/17 [facility] [place]-CPAP recommended 08/22/18 CPAP [place] [facility] [place] PIN (prostatic intraepithelial neoplasia) (Acute 11/22/14) in one of 10 bx specimens, [place] Paresthesias (Acute 03/28/15) NUMBNESS lasting 40 sec to 4 min, L arm, L leg, 3 episodes since d/c [facility] [place] 03/19 Seasonal allergic rhinitis (Acute 09/14/11) Tinnitus (Acute 01/18/15) MRI 12/04 normal Vitamin D deficiency (Acute 01/18/15) Mixed hyperlipidemia (Acute 02/25/18) Arteriosclerosis of coronary artery (Acute ~01/2016) Tick bite (Acute 03/31/13) Pruritic rash (Acute 11/19/16) Paresthesia of right upper limb (Acute 10/27/13) Diverticulosis of colon without diverticulitis (Acute 09/14/11) Diverticulitis of intestine (Acute 01/18/15) Neuralgia (Acute 01/18/15) Plantar fasciitis, bilateral (Acute) Neuropathy, intercostal nerve (Acute) Shortness of breath (Acute) Bladder stone (Acute) Coronary artery disease (Chronic) Medical History (Updated 03/07/23 @ 09:06 by Ottoniel Mcintyre MD) Giardiasis Left ureteral stone Bacteremia due to Escherichia coli (01/18/15) Atrioventricular block, complete Pruritic rash (11/19/16) Right palm , responds to Epsom salts, transiently to steroid cream Palmar erythema (08/07/16) Right palm , responds to Epsom salts, transiently to steroid cream Aortic aneurysm (12/02/14) 5.14 cm ascending aorta CTA chest and abdomen w/out contrast Surgical History Hx of cystoscopy kidney stone removal; June 2020 Hx of colectomy hx of ruptured colon with colostomy and reversal. 18 inches less of intestine per pt. History of laryngoscopy (~12/21/14) H/O colonoscopy (~04/26/14) w/ bx History of temporal artery biopsy (~11/27/14) bilaterally H/O vasectomy History of wisdom tooth extraction S/P tonsillectomy (~1971) H/O elbow surgery (~1986) Hx of colostomy (~08/2010) [place], perforated diverticulitis Re-Anastomosis 11/2010 s/p valve sparing root replacement Done at [facility] [place] 03/13/15 colonoscopy w/ bx (07/29/17) Prostate Biopsy with imaging guidance (11/25/14) Dr Hoang Family History Mother Neoplasm AGE 72, Colon cancer, LARGE SCALE ORGAN FAILURE Father , AGE 62 PANCREATIC CA Neoplasm Sister , PNEUMONIA AGE 49 CREST syndrome Colonic polyp Maternal Grandfather Neoplasm COLON CANCER Social History Smoking/Tobacco Use Status: Never Smoking risk assessment performed?: Yes Alcohol Intake: never Drug use: Never Substance use type: does not use Household members: other Details: self, and son Housing: house Number of Children: 2 number of grandchildren: 0 Communication Needs: Hard of Hearing Education Level: master's degree Do you need help understanding health information?: Never current occupation: Retired What is your relationship status?: Panel score (0-1 are the most socially isolated patients): 1 What type of physical activity do you participate in: other Details: active daily Duration: 60-90 minutes/day Frequency: 3-4 times per week Seatbelt use: always Water heater temp set <120 deg: Yes Working smoke detector in home: Yes Fire extinguisher in home: Yes Carbon monox detector in home: Yes Do you feel safe at home: Yes Do you feel safe in your relationship?: Yes Meds Allergies and Home Medications Allergies Allergy/AdvReac Type Severity Reaction Status Date / Time cefuroxime axetil AdvReac Unknown Hives Verified 03/07/23 08:01 [From Ceftin] clindamycin AdvReac Unknown Hives Verified 03/07/23 08:01 paroxetine AdvReac Unknown active Verified 03/07/23 08:01 dreams dust Allergy Unknown sneezing Uncoded 03/07/23 08:01 Home Medications Medication Instructions Recorded Confirmed Type diphenhydramine HCl 25 mg capsule 25 mg PO PRN 03/11/17 03/07/23 History (Benadryl) aspirin 81 mg tablet,delayed 81 mg PO DAILY 06/02/21 03/06/23 History release cholecalciferol (vitamin D3) 25 1,000 unit PO DAILY 01/30/22 03/07/23 History mcg (1,000 unit) capsule finasteride 5 mg tablet See Rx Instructions .Route 08/28/22 03/07/23 Rx .COMPLEX #90 tabs clarithromycin 250 mg tablet 250 mg PO DAILY 01/21/23 03/07/23 History clotrimazole 1 % topical cream 1 applic topical BID #45 grams 01/21/23 03/07/23 Rx hydroxychloroquine 100 mg tablet 100 mg PO BID 01/21/23 03/07/23 History ezetimibe 10 mg tablet (Zetia) 10 mg PO DAILY #90 tabs 02/26/23 03/07/23 Rx rosuvastatin 10 mg tablet (Crestor) 10 mg PO DAILY #90 tabs 02/26/23 03/07/23 Rx Exam Const General: cooperative Neck Neck: supple Resp Effort & Inspection: normal respiratory effort Auscultation: clear to auscultation bilaterally Cardio Rate: regular rate Rhythm: regular rhythm GI Palpation: soft and no masses Neuro General: patient alert, patient awake and patient oriented x3 Results Last Vital Signs Temp 36.6 C 03/07/23 08:02 Pulse 59 L 03/07/23 08:02 Resp 16 03/07/23 08:02 BP 125/81 03/07/23 08:02 Pulse Ox 99 03/07/23 08:02 Time Spent Time spent with Patient: <40 minutes Time was spent: other
[2023-03-07] MEDS: Lidocaine 2% Jelly 11 ML SYR (10:20)
--- NOTE | 2023-03-07 10:47 | W.PM.DSUDISC ---
Date of service: 03/07/23 Time of Service: 10:48 Discharge Plan Disposition Condition: Stable Discharge Details Reason For Visit: bladder stones Attending Provider: Ottoniel Mcintyre Primary Care Provider: Thaddeus Benson Home Meds and New Rx's Prescriptions: No Action aspirin 81 mg tablet,delayed release (DR/EC) 81 mg PO DAILY hydroxychloroquine 100 mg tablet 100 mg PO BID clotrimazole 1 % cream 1 applic topical BID Qty: 45 0RF clarithromycin 250 mg tablet 250 mg PO DAILY rosuvastatin [Crestor] 10 mg tablet 10 mg PO DAILY Qty: 90 3RF ezetimibe [Zetia] 10 mg tablet 10 mg PO DAILY Qty: 90 3RF diphenhydramine HCl [Benadryl] 25 MG capsule 25 mg PO PRN cholecalciferol (vitamin D3) 25 mcg (1,000 unit) capsule 1,000 unit PO DAILY finasteride 5 mg tablet See Rx Instructions .ROUTE .COMPLEX Qty: 90 3RF Dose Instruction: TAKE 1 TABLET BY MOUTH DAILY FOR PROSTATE Rx Instructions: TAKE 1 TABLET BY MOUTH DAILY FOR PROSTATE Discharge Instructions Additional Instructions: no need to strain urine followup 6 to 10 weeks with renal US Activity:: Activity as Tolerated Shower/Bathe:: 24 hours Diet:: As Tolerated DS: Diagnosis Discharge Diagnosis (1) Bladder stone: Status: Acute (2) Bilateral kidney stones: Status: Acute
--- NOTE | 2023-03-07 10:54 | W.PM.OP ---
Date of service: 03/07/23 Time of Service: 10:54 Operative Note Operative Note DATE OF PROCEDURE: 03/07/23 PRE-OP DIAGNOSIS: Bladder stones Bilateral renal stones PROCEDURE: cystoscopy, holmium laser lithotripsy and evacuation of bladder stones SURGEON: Ottoniel Mcintyre ANESTHESIA TYPE: Local By Surgeon and General LMA/ETT Refer to Anesthesia Record ESTIMATED BLOOD LOSS: 20 PATHOLOGY: other (bladder stones for chemical analysis) COMPLICATIONS: None Patient was transported to: PACU Patient's condition: stable Implants: none Indications: This is a 63-year-old gentleman who has a history of both kidney and bladder stones. He has had no flank pain but has had hematuria. On imaging studies, he has multiple stones in his bladder along with nonobstructing stones in both kidneys. The stone burden in the right is much larger than the stone burden on the left. He presents now for cystoscopy and treatment of his bladder stones. He would be agreeable to the left-sided ureteroscopy if our visibility is not compromised during the management of the bladder stones. Findings: Multiple bladder stones Following manipulation of the bladder stones, there was edema of the trigone, so we did not attempt ureteroscopy Procedure Description: The patient was given preoperative antibiotics and brought to the operating room on 03/07/2023. After successful induction of general anesthesia, he was placed in the dorsal lithotomy position. His genitalia was prepped and draped. 2% Xylocaine jelly was instilled into the urethra to act as a local anesthetic. The 22 [place] rigid cystoscope was passed through the urethra into the bladder. The urethra and bladder were inspected with the deflection of the scope. The pendulous, bulbar and membranous urethra appeared normal with no strictures. The prostatic urethra showed enlargement of the prostate with both lateral lobes and a median lobe. The bladder neck was entered and the bladder mucosa was inspected. The bladder was moderately trabeculated. Behind the median lobe, multiple crystalline appearing bladder stones were visualized. The stones were too large to grasp and remove directly, so used a 940 ?m holmium laser fiber to fragment the stone into smaller more manageable pieces. The stone fragments were grasped and alligator forceps or evacuated with hand irrigation. All evacuated stone fragments were sent to pathology for permanent section. At the completion of the procedure, I did not see any additional large stone burden within the bladder. We then inspected the trigone on and found hyperemic mucosa and edema from the bladder stone manipulation. It was difficult to visualize the left ureteral orifice, so we elected not to treat the kidney stones with ureteroscopy today. The bladder was emptied and the cystoscope was removed. The patient tolerated the procedure well with no complications.
--- NOTE | 2023-03-07 11:43 | W.ANESPOSTOP ---
Postoperative Evaluation Date, Time and Location Date Performed: 03/07/23 Time Performed: 11:43 Patient Location: PACU Vital Signs Most Recent Imported Vital Signs: Most Recent Vital Signs Temp Pulse Resp BP Pulse Ox 36.3 C L 51 L 15 95/63 L 96 03/07/23 11:40 03/07/23 11:40 03/07/23 11:40 03/07/23 11:40 03/07/23 11:40 Pain Score Most Recent Pain Score: Most Recent Pain Score Pain Level 2 03/07/23 11:40 Assessment Mental Status: Awake (Alert & Oriented to Patient Baseline) Airway and Respiratory Function: Patent airway with normal (patient baseline) respiratory exam Cardiovascular Function: Hemodynamically Stable Hydration Status: Adequately Hydrated Nausea & Vomiting: No Nausea or Vomiting Pain: Pt. Denies Any Pain Peripheral Nerve Block: Patient did not receive a nerve block
[2023-03-07] MEDS: Phenazopyridine 200 MG TAB PO (12:07)
== END 2023-03-07 13:05 | disposition home or self-care (01) ==
PROVIDERS: PCP Family Medicine; Visit Provider Urology
PROC: (CPT 52317; principal; 2023-03-07 09:15)
DX: N21.0 Calculus in bladder (principal); N20.0 Calculus of kidney; K21.9 Gastro-esophageal reflux disease without esophagitis; G47.33 Obstructive sleep apnea (adult) (pediatric); E55.9 Vitamin D deficiency, unspecified; E78.2 Mixed hyperlipidemia; I25.10 Atherosclerotic heart disease of native coronary artery without angina pectoris
CPT/HCPCS: 52317; 82365; J0744; J1100; J1885; J2405; J2704; J3010

== ENCOUNTER 2023-03-11 12:14 | Outpatient (REF) | payer BC, SELFPAY ==
--- NOTE | 2023-03-11 10:40 | PAPNONF_PTH ---
PATIENT: Thaddeus Khan LOC: [facility] U#:[id number] AGE/SX: 63/M ROOM: RE03/11/[address]: Ricardo Pastrana MD : 1960 BED: DIS: 03/11/2023 SPEC #: [id number] RECD: 03/11/23 18:12 STATUS: WHITNEY REQ #: [id number] CHUCK: 03/11/23 10:[address]: Ricardo Pastrana DEPT: [facility] Cytology RECD BY: Nelia Man ENTERED: 03/11/23 18:14 SP TYPE: ANDREIA GARCIA DR: Thaddeus Benson DO Tissues: 1 - BODY FLUID CYTO-FINE NEEDLE [facility]IRATE[facility] Procedures: BODY FLUID CYTO-FINE NEEDLE ASPIRATE[facility] Comments: [id number] (REFRIGERATED)
== END 2023-03-11 12:15 | disposition home or self-care (01) ==
LOC: LBN 12:14
PROVIDERS: PCP Family Medicine; Visit Provider Otolaryngology
DX: K11.8 Other diseases of salivary glands (principal)
CPT/HCPCS: 88104

== ENCOUNTER → 2023-04-23 00:14 | Outpatient (CLI) | payer BC, SELFPAY ==
--- NOTE | 2023-04-23 07:45 | DI.US_ITS ---
Exam(s) US NEEDLE LOCAL OTHER WO RAD EXAM: Left parotid mass,ultrasound guided bx,k11.8 COMPARISON: No exams were available for comparison TECHNIQUE: Ultrasound performed using standard protocol. FINDINGS: Sonography was provided for Dr. Pastrana during the performance of a left parotid gland biopsy. Janice tomlin refer to the procedure report for complete details. DATA REPOSITORY:
--- NOTE | 2023-04-23 11:35 | PAPNONF_PTH ---
PATIENT: Thaddeus Khan LOC: [facility] U#:[id number] AGE/SX: 65/M ROOM: RE04/23/[address]: Ricardo Pastrana MD : 1960 BED: DIS: SPEC #: [id number] RECD: 04/23/23 12:27 STATUS: WHITNEY REDaniel #: [id number] CHUCK: 04/23/23 11:[address]: Ricardo Pastrana DEPT: [facility] Cytology RECD BY: Nelia Man ENTERED: 04/23/23 12:28 SP TYPE: PAPREMIGIOF RADHA DR: Thaddeus Benson DO Tissues: 1 - BODY FLUID CYTO-FINE NEEDLE ASPIRATE[facility] Procedures: BODY FLUID CYTO-FINE NEEDLE ASPIRATE[facility] Comments: [id number] (PATH FNA CONSULT) (REFRIGERATED)
--- NOTE | 2023-04-23 12:29 | W.PROCNOTE ---
Date of service: 04/23/23 Time of Service: 12:29 Procedure Note Date of procedure: 04/23/23 Procedure: Ultrasound-guided FNA, left tail of parotid mass, pathology present Surgeon/Proceduralist/Physician: Ricardo Pastrana Procedure Diagnosis: Left tail of parotid mass Procedure Indications: The patient has a left tail of parotid mass. FNA in the office was nondiagnostic. As such, options were explained to the patient regarding further management. Given the small size of the nodule, I recommended that we perform this under ultrasound. He concurred. Risks including bleeding, infection, need for other treatment were discussed at length. Verbal consent and written consent were obtained. The below was then performed. Procedure Description: The patient was positioned in supine position with his head turned to the right. Ultrasound was used to localize the left-sided parotid nodule which was hypoechoic, and not hypervascular. He was prepped and draped in appropriate fashion. 1% lidocaine with 1/100,000 epinephrine was injected over the top of the lesion. 25-gauge needle was then carefully introduced into the nodule, with pathology assessing this for significant white blood cells, but no evidence of any parotid tissue. Sample was felt to be adequate. As such, no further passes were made. After ensuring adequate hemostasis, sterile dressing was placed against the wound. The patient was allowed to sit and then stand and ambulate. His vital signs remained stable. He will remove the bandage tonight. He will use ibuprofen or Tylenol for any discomfort. He will call me if he does not hear from me with regard to the results of pathology within 1 week. He will call with any concerns. He had no further questions. He is comfortable with the plan.
== END ==
PROVIDERS: PCP Family Medicine; Visit Provider Otolaryngology
DX: K11.8 Other diseases of salivary glands (principal)
CPT/HCPCS: 10005; 76942; 88104

== ENCOUNTER 2023-06-07 02:31 | Outpatient (CLI) | payer BC, SELFPAY ==
[2023-06-07 15:55] LABS: Calculated LDL 47 mg/dL (<100); Cholesterol 135 mg/dL (<200); HDL Cholesterol 63 mg/dL (40-60); Triglyceride 128 mg/dL (<150)
== END 2023-06-07 02:32 | disposition home or self-care (01) ==
LOC: LBO 02:31
PROVIDERS: PCP Family Medicine; Visit Provider Emergency Medicine
DX: B35.2 Tinea manuum (principal); E78.1 Pure hyperglyceridemia
CPT/HCPCS: 36415; 80061

== ENCOUNTER 2023-08-30 02:38 | Outpatient (CLI) | payer BC, SELFPAY ==
[2023-08-30 18:55] LABS: PSA, Diagnostic 2.3 ng/mL (<=4.5)
== END 2023-08-30 02:39 | disposition home or self-care (01) ==
LOC: LBO 02:38
PROVIDERS: PCP Family Medicine; Visit Provider Urology
DX: R97.20 Elevated prostate specific antigen [PSA] (principal)
CPT/HCPCS: 36415; 84153

== ENCOUNTER 2023-12-20 07:12 | Day surgery (SDC) | payer BC, SELFPAY ==
[2023-12-20 07:15] VITALS: BP 148/98; PULSE 62; RESP 16; TEMP 36.8; O2SAT 98
--- NOTE | 2023-12-20 07:30 | DI.CT_ITS ---
Exam(s) CT RENAL COLIC WO EXAM: CT RENAL COLIC WO CLINICAL HISTORY: right flank pain. TECHNIQUE: Imaging Protocol: Axial computed tomography images with coronal and sagittal reformatted images were created and reviewed CONTRAST MATERIAL: Intravenous: none Oral: None COMPARISON: No exams were available for comparison FINDINGS: VISUALIZED LUNG BASES: No nodules nor pleural effusions evident. ABDOMEN: There is no ascites. LIVER: There are stable cysts in liver again noted. GALLBLADDER/BILIARY: No obvious gallbladder pathology. CBD is not dilated. PANCREAS: No evidence of pancreatic mass nor dilatation of the pancreatic duct. SPLEEN: Spleen is not enlarged. No obvious intrasplenic lesions. ADRENALS: There are no significant adrenal masses. KIDNEYS:Calculi in both kidneys again noted. There presently multiple calculi also evident within th e right ureter well as a calculus in the urinary bladder. The right ureter is significantly dilated down to the level the lower most mid pelvic calculus which measures 1.6 x 0.7 cm. The ureter above t his is dilated to 12 mm diameter. Another calculus is seen at the right ureteropelvic junction which measures 1 cm. Other calculi are seen within the right kidney.. There are smaller calculi evident within the left kidney. There is also left-sided hydronephrosis wi th a calculus in the mid left ureter which measures 9 x 6 mm. The left ureter above this level is di lated to 11 mm diameter. There is significant bilateral hydronephrosis, slightly more prominent on t he right side. There is a 7 mm calculus in the urinary bladder. Another smaller calculus is seen in left side of the bladder measuring 2 mm. ABDOMINAL AORTA: Abdominal aorta is not enlarged. LYMPH NODES: There is no retroperitoneal nor paraaortic adenopathy. ABDOMINAL WALL: No evidence of significant anterior abdominal wall nor inguinal hernia. GI: There is no evidence of bowel obstruction, free air, nor abscess. PELVIS: LYMPH NODES: There is no intrapelvic nor inguinal adenopathy. GI: No evidence of appendicitis.There has been partial sigmoid resection. There are sigmoid divertic chepe without evidence of acute diverticulitis. URINARY BLADDER: Intraluminal calculi noted. Bladder not distended. REPRODUCTIVE: Prostate is enlarged, measuring 5.7 cm wide. OSSEOUS: No significant osseous lesions. No fractures. IMPRESSION: 1. Large obstructing calculi in both ureters as described above. The largest calculus measures 16 x 7 mm located in the right pelvic ureter. There is significant hydronephrosis and hydroureter on both sides. 2. There also calculi in the urinary bladder as described above. 3. Prostate gland is enlarged. The urinary bladder is not distended. The wall the urinary bladder i s uniformly thickened. Report called by myself to ER physician 12/20/2023 8:30 a.m. RADIATION DOSE DELIVERED: 497.69mGy.cm Total DLP DATA REPOSITORY: All CT scans at this facility are submitted to the National Radiology Data Registry (NRDR) Dose Index Registry (DIR) with the [employer] (ACR). RADIATION OPTIMIZATION: All CT scans at this facility use at least one of these dose optimization te chniques: automated exposure control; mA and/or kV adjustment per patient size (includes targeted exa ms where dose is matched to clinical indication); or iterative reconstruction.
--- NOTE | 2023-12-20 07:37 | W.ED.GENAD ---
Discharge Plan Disposition Patient Disposition: Admit to [facility] Condition: Stable Discharge Details Chief Complaint: Nk/Back Pain Clinical Impression: Kidney stones Primary Care Provider: Thaddeus Benson ED Provider: Billy Betancourt Home Meds and New Rx's Prescriptions: No Action aspirin 81 mg tablet,delayed release (DR/EC) 81 mg PO DAILY doxycycline hyclate 50 mg tablet 50 mg PO DAILY rosuvastatin [Crestor] 10 mg tablet 10 mg PO DAILY Qty: 90 3RF ezetimibe [Zetia] 10 mg tablet 10 mg PO DAILY Qty: 90 3RF diphenhydramine HCl [Benadryl] 25 MG capsule 25 mg PO PRN cholecalciferol (vitamin D3) 25 mcg (1,000 unit) capsule 1,000 unit PO DAILY finasteride 5 mg tablet See Rx Instructions .ROUTE .COMPLEX Qty: 90 3RF Dose Instruction: TAKE 1 TABLET BY MOUTH DAILY FOR PROSTATE Rx Instructions: TAKE 1 TABLET BY MOUTH DAILY FOR PROSTATE HPI General Mode of arrival: ambulatory. Date/Time Provider Initiated Documentation: 12/20/23 07:13. Limitations to Documentation: no limitations. Information obtained by: patient. History of Present Illness 63 year old M presents to the emergency department with the chief complaint of right lower back pain, described as moderate, Quality is described as aching, and is localized to the back and right. Patient reports no radiation. Patient started experiencing this week(s) (1) and it has been constant. No relieving factors improve symptom(s), No exacerbating factors reported . Patient notes denies chest pain, fever/chills and shortness of breath. Patient did receive the following treatments prior to arrival, none Related Data Home Medications ?Medication ?Instructions ?Recorded ?Confirmed diphenhydramine HCl 25 mg capsule 25 mg PO PRN 03/11/17 12/20/23 (Benadryl) aspirin 81 mg tablet,delayed 81 mg PO DAILY 06/02/21 12/20/23 release cholecalciferol (vitamin D3) 25 1,000 unit PO DAILY 01/30/22 12/20/23 mcg (1,000 unit) capsule ezetimibe 10 mg tablet (Zetia) 10 mg PO DAILY #90 tabs 02/26/23 12/20/23 rosuvastatin 10 mg tablet (Crestor) 10 mg PO DAILY #90 tabs 02/26/23 12/20/23 finasteride 5 mg tablet See Rx Instructions .Route 11/19/23 12/20/23 .COMPLEX #90 tabs doxycycline hyclate 50 mg tablet 50 mg PO DAILY 12/11/23 12/20/23 Previous Rx's ?Medication ?Instructions ?Recorded ezetimibe 10 mg tablet (Zetia) 10 mg PO DAILY #90 tabs 02/26/23 rosuvastatin 10 mg tablet (Crestor) 10 mg PO DAILY #90 tabs 02/26/23 finasteride 5 mg tablet See Rx Instructions .Route 11/19/23 .COMPLEX #90 tabs Allergies Allergy/AdvReac Type Severity Reaction Status Date / Time cefuroxime axetil (From AdvReac Unknown Hives Verified 12/20/23 07:28 Ceftin) clindamycin AdvReac Unknown Hives Verified 12/20/23 07:28 paroxetine AdvReac Unknown active Verified 12/20/23 07:28 dreams dust Allergy Unknown sneezing Uncoded 12/20/23 07:28 General Stated Complaint: Nk/Back Pain BETINA: 3 Review of Systems All systems reviewed & are unremarkable except as noted in HPI and below Constitutional Constitutional: Denies chills, Denies fever(s) and Denies weakness Cardiovascular Cardiovascular: Denies chest pain and Denies dyspnea Respiratory Respiratory: Denies cough and Denies dyspnea Gastrointestinal Gastrointestinal: Denies abdominal pain, Denies nausea and Denies vomiting Genitourinary Genitourinary: Reports hematuria Integumentary/Breasts Skin/Breast: Denies rash Neurologic Neurologic: Denies weakness Psychiatric Psychiatric: Denies depression Exam Const General: no acute distress Orientation: alert [facility] Head: normal to inspection Ears: external ears normal General nose exam: external nose normal Mouth: moist mucous membranes Eyes General: appearance normal, both eyes and all related structures Neck Neck: normal visual inspection, full ROM, no lymphadenopathy, no meningeal signs and trachea midline Resp Effort & Inspection: normal respiratory effort and able to speak in complete sentences Cardio Rate: regular rate GI Palpation: soft and nontender Skin General skin exam: no rashes or lesions noted Neuro General: patient alert and patient oriented x3 Extrem General: normal to inspection Psych Mental Status: mental status grossly normal Course Vital Signs Vital signs: Vital Signs Temperature 36.8 C 12/20/23 07:15 Pulse 62 12/20/23 07:15 Respiratory Rate 16 08/30/24 07:15 Blood Pressure 148/98 H 12/20/23 07:15 Pulse Oximetry 98 12/20/23 07:15 Temperature 36.8 C 12/20/23 07:15 Temperature Source Tympanic 12/20/23 07:15 Pulse 62 12/20/23 07:15 Respiratory Rate 16 12/20/23 07:15 Respiratory Effort Normal 12/20/23 07:29 Blood Pressure 148/98 H 12/20/23 07:15 Blood Pressure Position Sitting 12/20/23 07:15 Pulse Oximetry 98 12/20/23 07:15 Oxygen Delivery Method Room Air 12/20/23 07:15 Oxygen Flow Rate 0 12/20/23 07:15 Pain Level 3 12/20/23 07:15 Comment Increases to 09/2912/20/23 07:15 Lab/Test Results Lab/Test Results: 12/20/23 07:20 Urine - Clean Catch Urine Culture - Pending Medical Decision Making 63-year-old male with a history of prior kidney stones, hyperlipidemia, GERD who comes in with 1 week of right lower back pain and also hematuria. He also notes for the last day or 2 he had some neck stiffness. He denies any falls or trauma, no fevers, no vomiting. He is alert and oriented on arrival and appears well in no distress. He has reproducible tenderness in the right lower back. He has full range of motion of his neck with no meningismus. He has reproducible right lateral neck discomfort over the paraspinous muscles. There is no palpable or visible deformity. No abdominal tenderness. His pain could be musculoskeletal in nature but given his history of kidney stones and reported blood in his urine we will proceed with CBC, CMP, lipase and a UA as well as a CT renal colic. His neck pain seems musculoskeletal and has no fevers and no meningismus so doubt entities such as [employer] infection. imaging shows bilateral large kidney stones that are obstructing, patient feels improved. Spoke with Dr. Mcintyre who will plan to bring patient to the OR later for ureter stent placement. Pt agrees with plan Differential Diagnosis Differential Diagnosis: Kidney stone, pyelonephritis Medical Records Medical records reviewed: Yes I reviewed the patient's medical records. Imaging Data Radiologic Study: Attestation: I personally reviewed and interpreted this imaging study as follows: Imaging: CT Scan Radiologist's impression: IMPRESSION: 1. Large obstructing calculi in both ureters as described above. The largest calculus measures 16 x 7 mm located in the right pelvic ureter. There is significant hydronephrosis and hydroureter on both sides. 2. There also calculi in the urinary bladder as described above. 3. Prostate gland is enlarged. The urinary bladder is not distended. The wall the urinary bladder is uniformly thickened. Lab Data Lab results reviewed: Yes I reviewed the patient's lab results. Quality:SDOH Health Related Social Needs: No Data to Display PFSH All Active Problems (Updated 12/20/23 @ 08:58 by Billy Betancourt MD) Kidney stones (Chronic) Bilateral kidney stones (Acute) Endogenous hyperlipidemia (Acute) Lymph node disorder (Acute) Impacted cerumen (Acute) Cementosis (Acute) Ganglion cyst (Acute) Tinea manus (Acute) Agoraphobia without history of panic disorder (Acute 04/22/86) began during grad school; NORTRIPTYLINE EFFECTIVE, WORSE WITH EXCESS CAFFEINE Antibiotic long-term use (Acute 10/04/15) per Dr Theo Daley for possible Lyme related Benign neoplasm of large intestine (Acute 03/02/09) TUBULAR ADENOMA 2008, Hepatic Flexure (hartong) ED (erectile dysfunction) (Acute 10/27/13) Elevated prostate specific antigen [PSA] (Acute 01/28/17) Dr. Hoang neg bx, updated PSA favoirable suggesing previous related to inflammation/inf, Free PSA indeterminate Extrinsic asthma, unspecified (Acute 05/12/12) ? 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 Joel Hoang Kidney stone (Acute 08/20/10) FOUND ON W/U ABD PAIN 08/2010 [facility]; POS FH (SISTERS, FATHER) Migraine aura without headache (Acute 09/25/17) Mood disturbance (Acute 06/05/16) decr energy due to Lyme meds Obstructive sleep apnea syndrome (Acute 09/14/11) DENTAL APPLIANCE AND FLONASE, [place] [facility] [place] [facility] [place] CP[place] recommended Sleep Study 09[place]21/[place] [facility] [place]18 CPAP started. [facility] [place] PIN (prostatic intraepithelial neoplasia) (Acute 11/22/14) in one of 10 bx specimens, [place] Paresthesias (Acute 03/28/15) NUMBNESS lasting 40 sec to 4 min, L arm, L leg, 3 episodes since d/[place] [facility] [place] Seasonal allergic rhinitis (Acute 09/14/11) Tinnitus (Acute 01/18/15) MRI 12/04 normal Vitamin D deficiency (Acute 01/18/15) Mixed hyperlipidemia (Acute 02/25/18) Arteriosclerosis of coronary artery (Acute ~01/2016) Tick bite (Acute 03/31/13) Pruritic rash (Acute 11/19/16) Paresthesia of right upper limb (Acute 10/27/13) Diverticulosis of colon without diverticulitis (Acute 09/14/11) Diverticulitis of intestine (Acute 01/18/15) Neuralgia (Acute 01/18/15) Plantar fasciitis, bilateral (Acute) Neuropathy, intercostal nerve (Acute) Shortness of breath (Acute) Coronary artery disease (Chronic) Medical History Mass of left parotid gland Bladder stone Giardiasis Left ureteral stone Bacteremia due to Escherichia coli (01/18/15) Atrioventricular block, complete Pruritic rash (11/19/16) Right palm , responds to Epsom salts, transiently to steroid cream Palmar erythema (08/07/16) Right palm , responds to Epsom salts, transiently to steroid cream Aortic aneurysm (12/02/14) 5.14 cm ascending aorta CTA chest and abdomen w/out contrast Surgical History Hx of cystoscopy kidney stone removal; June 2020 Hx of colectomy hx of ruptured colon with colostomy and reversal. 18 inches less of intestine per pt. History of laryngoscopy (~12/21/14) H/O colonoscopy (~04/26/14) w/ bx History of temporal artery biopsy (~11/27/14) bilaterally H/O vasectomy History of wisdom tooth extraction S/P tonsillectomy (~1971) H/O elbow surgery (~1986) Hx of colostomy (~08/2010) [place], perforated diverticulitis Re-Anastomosis 11/2010 s/p valve sparing [place] replacement [place] [facility] [place] colonoscopy w/ bx (07/29/17) Prostate Biopsy with imaging guidance (11/25/14) Dr Hoang Family History Mother Neoplasm AGE 72, Colon cancer, LARGE SCALE ORGAN FAILURE Father , AGE 62 PANCREATIC CA Neoplasm Sister , PNEUMONIA AGE 49 CREST syndrome Colonic polyp Maternal Grandfather Neoplasm COLON CANCER Social History Smoking/Tobacco Use Status: Never Smoking risk assessment performed?: Yes Alcohol Intake: never Drug use: Never Substance use type: does not use Household members: other Details: self, and son Housing: house Number of Children: 2 number of grandchildren: 0 Communication Needs: Hard of Hearing Education Level: master's degree Do you need help understanding health information?: Never current occupation: Retired What is your relationship status?: Panel score (0-1 are the most socially isolated patients): 1 What type of physical activity do you participate in: other Details: active daily Duration: 60-90 minutes/day Frequency: 3-4 times per week Seatbelt use: always Water heater temp set <120 deg: Yes Working smoke detector in home: Yes Fire extinguisher in home: Yes Carbon monox detector in home: Yes Do you feel safe at home: Yes Do you feel safe in your relationship?: Yes
[2023-12-20 07:45] LABS: Bilirubin Negative (Negative); Blood Moderate (Negative); Clarity Clear (Clear); Glucose Negative (Negative); Ketones Negative (Negative); Leukocyte Esterase Trace (Negative); Nitrite Negative (Negative); Specific Gravity 1.015 (1.005-1.025); Urobilinogen 0.2 mg/dL (Up to 0.2)
[2023-12-20] MEDS: Ketorolac 15 MG/ML VIAL IVP (07:49)
[2023-12-20] MEDS: Normal Saline 1,000 ML 1000 ML IV (07:50)
[2023-12-20 07:52] LABS: Abs Immature Grans 0.02 10^3/uL (0.0-0.06); Absolute Basophil Count 0.03 10^3/uL (0.0-0.2); Absolute Eosinophil Count 0.21 10^3/uL (0.0-0.7); Absolute Lymphocyte Count 1.18 10^3/uL (1.2-3.4); Absolute Monocyte Count 0.59 10^3/uL (0.1-0.8); Absolute Neutrophil Count 3.82 10^3/uL (1.2-6.7); Basophils % 0.5 %; Eosinophils % 3.6 %; HCT 38.4 % (40.0-50.0); HGB 13.4 g/dL (13.5-17.5); Immature Grans % 0.3 %; Lymphocytes % 20.2 %; MCH 32.3 pg (27.0-33.0); MCHC 34.9 % (32.0-36.0); MCV 93 fL (80-95); MPV 8.7 fL (8.0-11.0); Monocytes % 10.1 %; Neutrophils % 65.3 %; Platelet Count 214 10^3/uL (130-400); RBC 4.15 10^6/uL (4.36-5.78); RDW-SD 44.2 fL; WBC 5.85 10^3/uL (4.4-10.8)
[2023-12-20 08:06] LABS: Bacteria Negative HPF (Negative); C & S Indicated? C&S Done As Ordered; Casts Negative LPF (Negative); Crystals Negative HPF (Negative); Epithelial Cells Rare HPF (Negative); Mucus Negative (Negative)
[2023-12-20 08:17] LABS: COVID-19 PCR Negative (Negative); Influenza A PCR Negative (Negative); Influenza B PCR Negative (Negative); RSV PCR Negative (Negative)
[2023-12-20 08:17] LABS: ALT 35 U/L (16-63); AST 31 U/L (15-37); Albumin 3.7 g/dL (3.4-5.0); Alkaline Phosphatase 67 U/L (46-116); Anion Gap 9.7 mmol/L (3-11); BUN 20 mg/dL (7-18); Bilirubin, Direct 0.2 mg/dL (0.0-0.2); Bilirubin, Total 0.84 mg/dL (0.2-1.0); CO2 26.3 mmol/L (21.0-32.0); CREATININE 1.8 mg/dL (0.70-1.30); Calcium 9.2 mg/dL (8.5-10.1); Chloride 102 mmol/L (98-107); Estimated GFR 42.03 (mL/min/1.73m2); Glucose 102 mg/dL (74-106); Lipase 48 U/L (16-77); Magnesium 2.1 mg/dL (1.8-2.4); Potassium 3.8 mmol/L (3.5-5.1); Sodium 138 mmol/L (136-145); TSH (W/Ref FT4) 5.43 uIU/mL (0.36-3.74); Total Protein 7.1 g/dL (6.4-8.2)
[2023-12-20 08:23] LABS: Source Nasopharynx
[2023-12-20 08:40] LABS: Procalcitonin < 0.1 ng/mL
[2023-12-20 08:42] LABS: FREE T4 0.93 ng/dL (0.76-1.46)
[2023-12-20] MEDS: Normal Saline 1,000 ML 150 ML IV (09:15)
--- NOTE | 2023-12-20 09:21 | HPE_ITS ---
Date of service: 12/20/23 Time of Service: 09:21 Assessment and Plan Assessment and plan (1) Hydronephrosis concurrent with and due to calculi of kidney and ureter: Status: Acute Assessment and plan: He has no sign of urosepsis, but his renal function is worsening and he certainly needs both ureters to be unobstructed fairly urgently. We will plan on doing cystoscopy bilateral retrograde pyelograms and insert bilateral ureteral stents. We will not plan ureteroscopy for definitive treatment of his ureteral stones today. He will require return visits and likely staged procedures to clear out the amount of ureteral stone present. Had the stones remained up in the kidneys, a percutaneous nephrolithotomy has a higher rate of stone free status with fewer procedures, but now that the stones are down in the ureter, ureteroscopy will be needed. History of Present Illness History of Present Illness Chief Complaint: Bilateral ureteral stones N arrative: This is a 63-year-old gentleman who has a long history of kidney, ureteral and bladder stones. We had identified a large stone burden in both kidneys and we actually made a referral for him to see urology at [facility] where he could have percutaneous nephrolithotomy. While the referral has been made, the appointment has not occurred yet. In the meantime, he presented to our emergency department with right flank pain. He had gross hematuria for the past week or so, but the pain began just at day or [address] scan shows that many of his bilateral kidney stones had migrated into the ureters and he now has bilateral ureteral obstructions. He is not having any fever, but his serum creatinine is increased compared to baseline. He did have chills last evening. Review of Systems Narrative: No fevers or chills No vision change or dysphasia No diabetes or thyroid dysfunction Sleep apnea. No shortness of breath, cough or hemoptysis No chest pain or palpitations GERD. No hepatitis, ulcers, jaundice Hx migraines. No seizures, strokes No bleeding disorders or anemia No gout PFSH All Active Problems (Updated 12/20/23 @ 09:25 by Ottoniel Mcintyre MD) Hydronephrosis concurrent with and due to calculi of kidney and ureter (Acute) Kidney stones (Chronic) Bilateral kidney stones (Acute) Endogenous hyperlipidemia (Acute) Lymph node disorder (Acute) Impacted cerumen (Acute) Cementosis (Acute) Ganglion cyst (Acute) Tinea manus (Acute) Agoraphobia without history of panic disorder (Acute 04/22/86) began during grad school; NORTRIPTYLINE EFFECTIVE, WORSE WITH EXCESS CAFFEINE Antibiotic long-term use (Acute 10/04/15) per Dr Theo Daley for possible Lyme related Benign neoplasm of large intestine (Acute 03/02/09) TUBULAR ADENOMA 2008, Hepatic Flexure (hartong) ED (erectile dysfunction) (Acute 10/27/13) Elevated prostate specific antigen [PSA] (Acute 01/28/17) Dr. Hoang neg bx, updated PSA favoirable suggesing previous related to inflammation/inf, Free PSA indeterminate Extrinsic asthma, unspecified (Acute 05/12/12) ? related to GERD Family history of colon cancer (Acute 09/14/11) COLON 02/2009; rpt q 3yr GERD (gastroesophageal reflux disease) (Acute 01/18/15) History of aortic aneurysm repair (Acute 03/24/15) 02/2015 [facility] [place] endocarditis prophylaxis w/ Amox valve sparing aortic root replacement w/ 30 mm Valsalva graft Hyperuricosuria (Acute 01/28/17) Dr. Joel Hoang Kidney stone (Acute 08/20/10) FOUND ON W/U ABD PAIN 08/2010 [facility]; POS FH (SISTERS, FATHER) Migraine aura without headache (Acute 09/25/17) Mood disturbance (Acute 06/05/16) decr energy due to Lyme meds Obstructive sleep apnea syndrome (Acute 09/14/11) DENTAL APPLIANCE AND FLONASE, LAST SLEEP STUDY [facility] [place]201112/[place]/18 polysomnogram at [facility] [place] Med. CPAP recommended Sleep Study 09/21/17 [facility] [place] 08/22/18 CPAP started. [facility] [place] Medicine PIN (prostatic intraepithelial neoplasia) (Acute 11/22/14) in one of 10 bx specimens, [place] Paresthesias (Acute 03/28/15) NUMBNESS lasting 40 sec to 4 min, L arm, L leg, 3 episodes since d/c [facility] [place] Seasonal allergic rhinitis (Acute 09/14/11) Tinnitus (Acute 01/18/15) MRI 12/04 normal Vitamin D deficiency (Acute 01/18/15) Mixed hyperlipidemia (Acute 02/25/18) Arteriosclerosis of coronary artery (Acute ~01/2016) Tick bite (Acute 03/31/13) Pruritic rash (Acute 11/19/16) Paresthesia of right upper limb (Acute 10/27/13) Diverticulosis of colon without diverticulitis (Acute 09/14/11) Diverticulitis of intestine (Acute 01/18/15) Neuralgia (Acute 01/18/15) Plantar fasciitis, bilateral (Acute) Neuropathy, intercostal nerve (Acute) Shortness of breath (Acute) Coronary artery disease (Chronic) Medical History Mass of left parotid gland Bladder stone Giardiasis Left ureteral stone Bacteremia due to Escherichia coli (01/18/15) Atrioventricular block, complete Pruritic rash (11/19/16) Right palm , responds to Epsom salts, transiently to steroid cream Palmar erythema (08/07/16) Right palm , responds to Epsom salts, transiently to steroid cream Aortic aneurysm (12/02/14) 5.14 cm ascending aorta CTA chest and abdomen w/out contrast Surgical History Hx of cystoscopy kidney stone removal; June 2020 Hx of colectomy hx of ruptured colon with colostomy and reversal. 18 inches less of intestine per pt. History of laryngoscopy (~12/21/14) H/O colonoscopy (~04/26/14) w/ bx History of temporal artery biopsy (~11/27/14) bilaterally H/O vasectomy History of wisdom tooth extraction S/P tonsillectomy (~1971) H/O elbow surgery (~1986) Hx of colostomy (~08/2010) [place], perforated diverticulitis Re-Anastomosis 11/2010 s/p valve sparing root replacement Done at [facility] [place] 03/13/15 colonoscopy w/ bx (07/29/17) Prostate Biopsy with imaging guidance (11/25/14) Dr Hoang Family History Mother Neoplasm AGE 72, Colon cancer, LARGE SCALE ORGAN FAILURE Father , AGE 62 PANCREATIC CA Neoplasm Sister , PNEUMONIA AGE 49 CREST syndrome Colonic polyp Maternal Grandfather Neoplasm COLON CANCER Social History Smoking/Tobacco Use Status: Never Smoking risk assessment performed?: Yes Alcohol Intake: never Drug use: Never Substance use type: does not use Household members: other Details: self, and son Housing: house Number of Children: 2 number of grandchildren: 0 Communication Needs: Hard of Hearing Education Level: master's degree Do you need help understanding health information?: Never current occupation: Retired What is your relationship status?: Panel score (0-1 are the most socially isolated patients): 1 What type of physical activity do you participate in: other Details: active daily Duration: 60-90 minutes/day Frequency: 3-4 times per week Seatbelt use: always Water heater temp set <120 deg: Yes Working smoke detector in home: Yes Fire extinguisher in home: Yes Carbon monox detector in home: Yes Do you feel safe at home: Yes Do you feel safe in your relationship?: Yes Meds Allergies and Home Medications Allergies Allergy/AdvReac Type Severity Reaction Status Date / Time cefuroxime axetil (From AdvReac Unknown Hives Verified 12/20/23 07:28 Ceftin) clindamycin AdvReac Unknown Hives Verified 12/20/23 07:28 paroxetine AdvReac Unknown active Verified 12/20/23 07:28 dreams dust Allergy Unknown sneezing Uncoded 12/20/23 07:28 Home Medications ?Medication ?Instructions ?Recorded ?Confirmed ?Type diphenhydramine HCl 25 mg capsule 25 mg PO PRN 03/11/17 12/20/23 History (Benadryl) aspirin 81 mg tablet,delayed 81 mg PO DAILY 06/02/21 12/20/23 History release cholecalciferol (vitamin D3) 25 1,000 unit PO DAILY 01/30/22 12/20/23 History mcg (1,000 unit) capsule ezetimibe 10 mg tablet (Zetia) 10 mg PO DAILY #90 tabs 02/26/23 12/20/23 Rx rosuvastatin 10 mg tablet (Crestor) 10 mg PO DAILY #90 tabs 02/26/23 12/20/23 Rx finasteride 5 mg tablet See Rx Instructions .Route 11/19/23 12/20/23 Rx .COMPLEX #90 tabs doxycycline hyclate 50 mg tablet 50 mg PO DAILY 12/11/23 12/20/23 History Exam Const General: cooperative Eyes Other: Injected right conjunctiva Neck Neck: supple Resp Effort & Inspection: normal respiratory effort Auscultation: clear to auscultation bilaterally Cardio Rate: regular rate Rhythm: regular rhythm GI Palpation: soft and no masses Neuro General: patient alert, patient awake and patient oriented x3 Results Labs 12/20/23 07:45 12/20/23 07:45 Labs: Laboratory Results - last 24 hr 12/20/23 12/20/23 12/20/23 07:20 07:34 07:45 WBC 5.85 RBC 4.15 L Hgb 13.4 L Hct 38.4 L MCV 93 MCH 32.3 MCHC 34.9 RDW 13.0 Plt Count 214 MPV 8.7 Immature Gran % 0.3 Neutrophils % 65.3 Lymphocytes % 20.2 Monocytes % 10.1 Eosinophils % 3.6 Basophils % 0.5 Nucleated RBC % 0.0 Absolute Neutrophils 3.82 Absolute Lymphocytes 1.18 L Absolute Monocytes 0.59 Absolute Eosinophils 0.21 Absolute Basophils 0.03 Sodium 138 Potassium 3.8 Chloride 102 Carbon Dioxide 26.3 Anion Gap 9.7 BUN 20 H Creatinine 1.8 H Est GFR (CKD-EPI 2020) 42.03 Glucose 102 Calcium 9.2 Magnesium 2.1 Total Bilirubin 0.84 Conjugated Bilirubin 0.2 AST 31 ALT 35 Alkaline Phosphatase 67 Total Protein 7.1 Albumin 3.7 Lipase 48 Procalcitonin < 0.1 TSH 5.43 H Free T4 0.93 Urine Color Yellow Urine Clarity Clear Urine pH 7.0 Ur Specific [place] 1.015 Urine Protein Negative Urine Ketones Negative Urine Blood Moderate H Urine Nitrite Negative Urine Bilirubin Negative Urine Urobilinogen 0.2 Ur Leukocyte Esterase Trace H Urine RBC 10-20 H Urine WBC 3-5 Ur Epithelial Cells Rare Urine Crystals Negative Urine Bacteria Negative Urine Casts Negative Urine Mucus Negative Ur Culture Indicated? C&S Done As Ordered Urine Glucose Negative COVID-19 Source Nasopharynx SARS-CoV-2 (PCR) Negative Influenza Type A (PCR) Negative Influenza Type B (PCR) Negative RSV (PCR) Negative Last Vital Signs Temp 36.8 C 12/20/23 07:15 Pulse 62 12/20/23 07:15 Resp 16 12/20/23 07:15 BP 148/98 H 12/20/23 07:15 Pulse Ox 98 12/20/23 07:15 Time Spent Time spent with Patient: <40 minutes Time was spent: preparing to see the patient(eg.review tests), obtaining and/or reviewing separately otained hiistory, referring, communicating with other health animal care giver, indepentently interpreting results and counseling the patient
[2023-12-20 11:24] VITALS: BP 136/89; PULSE 56; RESP 18; O2SAT 100
[2023-12-20] MEDS: HYDROmorphone 2 MG/ML SYR 1 MG IVP (11:40)
[2023-12-20 14:40] VITALS: BP 157/78; PULSE 56; RESP 16; TEMP 36.4; O2SAT 98
--- NOTE | 2023-12-20 14:41 | DI.RAD_ITS ---
Exam(s) XR RETROGRADE IN OR EXAM: XR RETROGRADE IN OR CLINICAL HISTORY: BILATERAL KIDNEY STONES. TECHNIQUE: Fluoroscopy was provided for the referring physician for guidance with performing retrogr amilcar procedure. COMPARISON: CT CT RENAL COLIC WO from 12/20/2023 FINDINGS: Hard copy images show placement of bilateral ureteral stents. Please see procedure note for details. Fluoro time: 15.1 seconds RADIATION DOSE DELIVERED: Ka,r=3.5 mGy
--- NOTE | 2023-12-20 14:43 | W.ANESPOSTOP ---
Postoperative Evaluation Date, Time and Location Date Performed: 12/20/23 Time Performed: 14:43 Patient Location: Day Surgery Unit Vital Signs Most Recent Imported Vital Signs: Most Recent Vital Signs Temp Pulse Resp BP Pulse Ox 36.8 C 56 L 18 136/89 100 12/20/23 07:15 12/20/23 11:24 12/20/23 11:24 12/20/23 11:24 12/20/23 11:24 Pain Score Most Recent Pain Score: Most Recent Pain Score Pain Level 8 12/20/23 11:40 Assessment Mental Status: Awake (Alert & Oriented to Patient Baseline) Airway and Respiratory Function: Patent airway with normal (patient baseline) respiratory exam Cardiovascular Function: Hemodynamically Stable Hydration Status: Adequately Hydrated Nausea & Vomiting: No Nausea or Vomiting Pain: Pt. Denies Any Pain Peripheral Nerve Block: Patient did not receive a nerve block
--- NOTE | 2023-12-20 14:46 | ANES.PREOP_ITS ---
General Info Date of Service Date Performed: 12/20/23 Height: 5 ft 11 in Weight: 94.801 kg Body Mass Index (BMI): 29.1 Surgical Procedure: Operation Date: 12/20/23 13:25 Proposed Procedure Side Surgeon p Cystoscopy/Retrograde/Stent Placement Bilateral Ottoniel Mcintyre MD Actual Procedure Side Surgeon p Cystoscopy/Retrograde/Stent Placement Bilateral Ottoniel Mcintyre MD Meds Allergies and Home Medications Allergies Allergy/AdvReac Type Severity Reaction Status Date / Time cefuroxime axetil (From AdvReac Unknown Hives Verified 12/20/23 07:28 Ceftin) clindamycin AdvReac Unknown Hives Verified 12/20/23 07:28 paroxetine AdvReac Unknown active Verified 12/20/23 07:28 dreams dust Allergy Unknown sneezing Uncoded 12/20/23 07:28 Home Medication ?Medication ?Instructions ?Recorded diphenhydramine HCl 25 mg capsule 25 mg PO PRN 03/11/17 (Benadryl) aspirin 81 mg tablet,delayed 81 mg PO DAILY 06/02/21 release cholecalciferol (vitamin D3) 25 1,000 unit PO DAILY 01/30/22 mcg (1,000 unit) capsule ezetimibe 10 mg tablet (Zetia) 10 mg PO DAILY #90 tabs 02/26/23 rosuvastatin 10 mg tablet (Crestor) 10 mg PO DAILY #90 tabs 02/26/23 finasteride 5 mg tablet See Rx Instructions .Route 11/19/23 .COMPLEX #90 tabs doxycycline hyclate 50 mg tablet 50 mg PO DAILY 12/11/23 Current Visit Medications: Current Medications Generic Name Dose Route Start Last Admin Trade Name Freq PRN Reason Stop Dose Admin Sodium Chloride 1,000 mls @ 150 mls/hr 12/20/23 09:00 12/20/23 14:44 Saline 1000ml Bag IV Infused INFUSION GALLO Infusion IV Miscellaneous Supplies 1 each 12/20/23 07:30 Iv Access IV DIRECTED GALLO Sodium Chloride 0 ml 12/20/23 07:29 Normal Saline Flush 10 Ml Syr IVP PRN PRN Sodium Chloride 0 ml 12/20/23 08:30 Normal Saline Flush 10 Ml Syr IVP BID GALLO Sodium Chloride 0 ml 12/20/23 07:29 Normal Saline 10 Ml Vial IJ DIRECTED PRN PFSH Active Problems Active Problems: Problem Status Onset Code Hydronephrosis concurrent with and due to calculi of kidney and ureter Acute N13.2 Kidney stones Chronic N20.0 Bilateral kidney stones Acute 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 Lymph node disorder Acute I89.9 Impacted cerumen Acute H61.20 Cementosis Acute K03.4 Ganglion cyst Acute M67.40 Tinea manus Acute B35.2 Agoraphobia without history of panic disorder Acute 04/22/86 F40.02 Antibiotic long-term use Acute 10/04/15 Z79.2 Benign neoplasm of large intestine Acute 03/02/09 D12.6 ED (erectile dysfunction) Acute 10/27/13 N52.9 Elevated prostate specific antigen [PSA] Acute 01/28/17 R97.20 Extrinsic asthma, unspecified Acute 05/12/12 J45.909 Family history of colon cancer Acute 09/14/11 Z80.0 GERD (gastroesophageal reflux disease) Acute 01/18/15 K21.9 History of aortic aneurysm repair Acute 03/24/15 Z98.890, Z86.79 Hyperuricosuria Acute 01/28/17 R82.993 Kidney stone Acute 08/20/10 N20.0 Migraine aura without headache Acute 09/25/17 G43.109 Mood disturbance Acute 06/05/16 R45.86 Obstructive sleep apnea syndrome Acute 09/14/11 G47.33 PIN (prostatic intraepithelial neoplasia) Acute 11/22/14 N42.31 Paresthesias Acute 03/28/15 R20.2 Seasonal allergic rhinitis Acute 09/14/11 J30.2 Tinnitus Acute 01/18/15 H93.19 Vitamin D deficiency Acute 01/18/15 E55.9 Mixed hyperlipidemia Acute 02/25/18 E78.2 Arteriosclerosis of coronary artery Acute ~01/2016 I25.10 Tick bite Acute 03/31/13 W57.XXXA Pruritic rash Acute 11/19/16 L28.2 Paresthesia of right upper limb Acute 10/27/13 R20.2 Diverticulosis of colon without diverticulitis Acute 09/14/11 K57.30 Diverticulitis of intestine Acute 01/18/15 K57.92 Neuralgia Acute 01/18/15 M79.2 Plantar fasciitis, bilateral Acute M72.2 Neuropathy, intercostal nerve Acute G58.0 Shortness of breath Acute R06.02 Coronary artery disease Chronic I25.10 Medical History Medical History Mass of left parotid gland Bladder stone Giardiasis Left ureteral stone Bacteremia due to Escherichia coli (01/18/15) Atrioventricular block, complete Pruritic rash (11/19/16) Right palm , responds to Epsom salts, transiently to steroid cream Palmar erythema (08/07/16) Right palm , responds to Epsom salts, transiently to steroid cream Aortic aneurysm (12/02/14) 5.14 cm ascending aorta CTA chest and abdomen w/out contrast Surgical History Surgical History Hx of cystoscopy kidney stone removal; June 2020 Hx of colectomy hx of ruptured colon with colostomy and reversal. 18 inches less of intestine per pt. History of laryngoscopy (~12/21/14) H/O colonoscopy (~04/26/14) w/ bx History of temporal artery biopsy (~11/27/14) bilaterally H/O vasectomy History of wisdom tooth extraction S/P tonsillectomy (~1971) H/O elbow surgery (~1986) Hx of colostomy (~08/2010) [place], perforated diverticulitis Re-Anastomosis 11/2010 s/p valve sparing root replacement Done [place] [facility] [place] colonoscopy w/ bx (07/29/17) Prostate Biopsy with imaging guidance (11/25/14) Dr Hoang Tobacco Smoking/Tobacco Use Status: Never Alcohol Alcohol Intake: never Substance Use Substance use: Never Substance use type: does not use Vital Signs and Lab Results Vital Signs Most Recent Vital Signs in EMR: Most Recent Vital Signs Temp Pulse Resp BP Pulse Ox 36.4 C L 56 L 16 157/78 H 98 12/20/23 14:40 12/20/23 14:40 12/20/23 14:40 12/20/23 14:40 12/20/23 14:40 Lab Results 12/20/23 07:45 12/20/23 07:45 Blood Type / Crossmatch: 2 No Data to Display Complete Blood Count: 2 White Blood Count 5.85 10^3/uL (4.4-10.8) 12/20/23 07:45 Red Blood Count 4.15 10^6/uL (4.36-5.78) L 12/20/23 07:45 Hemoglobin 13.4 g/dL (13.5-17.5) L 12/20/23 07:45 Hematocrit 38.4 % (40.0-50.0) L 12/20/23 07:45 Platelet Count 214 10^3/uL (130-400) 12/20/23 07:45 Complete Metabolic Panel: 2 Sodium 138 mmol/L (136-145) 12/20/23 07:45 Potassium 3.8 mmol/L (3.5-5.1) 12/20/23 07:45 Chloride 102 mmol/L (98-107) 12/20/23 07:45 Carbon Dioxide 26.3 mmol/L (21.0-32.0) 12/20/23 07:45 BUN 20 mg/dL (7-18) H 12/20/23 07:45 Creatinine 1.8 mg/dL (0.70-1.30) H 12/20/23 07:45 Est GFR (CKD-EPI 2020) 42.03 (mL/min/1.73m2) 12/20/23 07:45 Magnesium 2.1 mg/dL (1.8-2.4) 12/20/23 07:45 Calcium 9.2 mg/dL (8.5-10.1) 12/20/23 07:45 Albumin 3.7 g/dL (3.4-5.0) 12/20/23 07:45 Glucose 102 mg/dL (74-106) 12/20/23 07:45 Liver Function Panel: 2 Alanine Aminotransferase (ALT/SGPT) 35 U/L (16-63) 12/20/23 07: 45 Aspartate Amino Transf (AST/SGOT) 31 U/L (15-37) 12/20/23 07:45 Coagulation Panel: 2 No Data to Display Cardiac Panel: 2 No Data to Display Arterial Blood Gas: 2 No Data to Display Venous Blood Gas: 2 No Data to Display Pancreas Panel: 2 Lipase 48 U/L (16-77) 12/20/23 07:45 Thyroid Panel: 2 Thyroid Stimulating Hormone (TSH) 5.43 uIU/mL (0.36-3.74) H 12/20/23 07:45 Infectious Disease: 2 Coronavirus (COVID-19)(PCR) Negative (Negative) 12/20/23 07:34 Coronavirus 2019 Source Nasopharynx 12/20/23 07:34 Influenza Virus Type A (PCR) Negative (Negative) 12/20/23 07:3 4 Influenza Virus Type B (PCR) Negative (Negative) 12/20/23 07:3 4 Respiratory Syncytial Virus (PCR) Negative (Negative) 12/20/23 07:34 Blood Cultures: 2 No Data to Display Toxicology Panel: 2 No Data to Display Imaging and Studies Imaging and Studies Study information below may be from another EMR and interpreted by another provider. Please see original notes in EMR for more complete details. EKG Summary: 09/04/22: Exam: Resting ECG Reason for Exam: CAD Patient Location: O HR:96 bpm ECG Measurements Heart Rate 96 AXIS FL 164 P 78 QRSd 95 QRS 65 QT 337 T37 QTc 426 Conclusion Sinus rhythm...normal P axis, V-rate 50- 99 Probable left atrial enlargement...P >50mS, <-0.10mV V1 Otherwise normal ECG Stress Test Summary: 09/2019: 13 METS, no symptoms or evidence of ischemia. upsloping ST depression in the lateral leads towards the end of exercise likely representing j-junction depression. LVEF 51%, no ischemia on imaging portion. Echocardiogram Summary: 12/08/2022: ([facility] [place]): EF 60%, No significant valvular lesions CT Summary: head/neck CT 2015: negative carotid and intracranial CT, no carotid dissection. Carotid Artery Summary:: 2015: no significant stenosis. Anesthesia Assessment and Plan Anesthesia History Personal History: No History of Anesthesia Complications Family History: No Family History of Anesthesia Complications Exercise Tolerance Exercise Tolerance: Metabolic Equivalents>4 Pertinent Negatives Pertinent Negatives: No Major Cardiovascular Symptoms or Complaints and No Major Pulmonary Symptoms or Complaints (CHANCE, CPaP) Cardiac & Pulmonary Exam Cardiac Exam: Normal S1/S2 Heart Sounds Pulmonary Exam: Clear Bilateral Breath Sounds Implantable Cardiac Device Does patient have a Pacemaker or an ICD?: No Airway Exam Known Difficult Airway: No Mallampati Class: 1 Mouth Opening: Normal (> 3cm) Thyromental Distance: Greater than 3 cm Neck Range of Motion: Full ROM Neck Circumference: Normal Teeth Condition: Normal Dentition and Other ASA Classification ASA Score: ASA 2 Emergency Case?: Yes NPO Status NPO Status: NPO Clears >2 hours, Solids >8 hours Anesthesia Plan Resuscitation Status: Full Code Anesthesia Technique: General Anesthesia Airway Planned: Natural Airway Monitors Used: Standard Monitors
[2023-12-20] MEDS: Lactated Ringers 1,000 ML 30 ML IV (14:57)
[2023-12-20 15:07] VITALS: BMI 29.1
[2023-12-20] MEDS: Omnipaque 300 MG/ML 50 ML BTL (15:10)
[2023-12-20] MEDS: Lidocaine 2% Jelly 6 ML SYR (15:10)
[2023-12-20 15:31] VITALS: BP 102/65; PULSE 60; RESP 16; TEMP 36.2; O2SAT 94
--- NOTE | 2023-12-20 15:32 | W.PM.DSUDISC ---
Date of service: 12/20/23 Time of Service: 15:33 Discharge Plan Disposition Patient Disposition: Home Condition: Stable Discharge Details Reason For Visit: Back/Neck Pain Attending Provider: Ottoniel Mcintyre Primary Care Provider: Thaddeus Benson Home Meds and New Rx's Prescriptions: New tramadol 50 mg tablet 50 mg PO Q6H PRN (Reason: pain) Qty: 20 0RF No Action aspirin 81 mg tablet,delayed release (DR/EC) 81 mg PO DAILY doxycycline hyclate 50 mg tablet 50 mg PO DAILY rosuvastatin [Crestor] 10 mg tablet 10 mg PO DAILY Qty: 90 3RF ezetimibe [Zetia] 10 mg tablet 10 mg PO DAILY Qty: 90 3RF diphenhydramine HCl [Benadryl] 25 MG capsule 25 mg PO PRN cholecalciferol (vitamin D3) 25 mcg (1,000 unit) capsule 1,000 unit PO DAILY finasteride 5 mg tablet See Rx Instructions .ROUTE .COMPLEX Qty: 90 3RF Dose Instruction: TAKE 1 TABLET BY MOUTH DAILY FOR PROSTATE Rx Instructions: TAKE 1 TABLET BY MOUTH DAILY FOR PROSTATE Discharge Instructions Additional Instructions: You have stents in both ureters. While the stents are in place, it is not unusual to see blood in your urine or have some discomfort when you urinate. I have sent a prescription for tramadol to the pharmacy that you can use for pain. You can also take Tylenol and ibuprofen along with the tramadol. My office will contact you early next week with an arrangement for ureteroscopy and laser treatment of your ureteral stones. The next surgery can be done as an outpatient but will likely take a few hours to do. Activity:: Activity as Tolerated Shower/Bathe:: 24 hours Diet:: As Tolerated Discharge Orders Discharge Orders: Discharge Order (Routine); Ordered 12/20/23 Ordered By: Ottoniel Mcintyre DS: Diagnosis Discharge Diagnosis (1) Hydronephrosis concurrent with and due to calculi of kidney and ureter: Status: Acute
--- NOTE | 2023-12-20 15:37 | W.PM.OP ---
Date of service: 12/20/23 Time of Service: 15:38 Operative Note Operative Note DATE OF PROCEDURE: 12/20/23 PRE-OP DIAGNOSIS: Bilateral ureteral stones POST-OP DIAGNOSIS: same PROCEDURE: Cystoscopy, bilateral retrograde pyelogram, insert bilateral ureteral stents SURGEON: Ottoniel Mcintyre ANESTHESIA TYPE: Local By Surgeon and General:No Airway Refer to Anesthesia Record ESTIMATED BLOOD LOSS: 5 PATHOLOGY: none sent COMPLICATIONS: None Patient was transported to: same day Patient's condition: stable Implants: Bilateral 6 [place] by 22 to 30 cm ureteral stents Indications: This is a 63-year-old gentleman who has a long history of kidney stones. He had a large volume stone burden in both kidneys and we had referred him for percutaneous nephrolithotomy. He presented to our emergency department today with right flank pain. Multiple stones had migrated into the ureters bilaterally and he has bilateral hydronephrosis. He presents for urgent stent placement. Findings: Bilateral ureteral obstructions with hydronephrosis Procedure Description: The patient was given preoperative IV antibiotics and brought from the emergency department to the operating room on 12/20/2023. After successful induction of general anesthesia, his genitalia was prepped with Betadine. 2% Xylocaine jelly was instilled into the urethra to act as a local anesthetic. A 22 [place] rigid cystoscope was passed through the urethra into the bladder. The urethra and bladder were inspected with the 30 degree lens. The pendulous, bulbar and membranous urethra's appeared normal with no strictures. The prostatic urethra showed trilobar enlargement with a prominent median lobe jetting back into the bladder. I was able to visualize each ureteral orifice. I started by cannulating the right orifice and injected Omnipaque through the access catheter under fluoroscopic guidance. Multiple filling defects were seen in the ureter and there was significant hydronephrosis. I then passed a guidewire through the lumen of the access catheter and maneuvered the wire up to the right kidney. The access catheter was removed and a 6 [place] variable length stent was advanced over the wire. The proximal end of the stent was seen within the renal pelvis and the distal end was seen within the bladder. I then cannulated the left ureteral orifice and again did a retrograde pyelogram by injecting Omnipaque through the access catheter under fluoroscopic guidance. On the left side, only 1 area of filling defect was seen in the ureter, but again there was hydronephrosis above the filling defect. I passed a guidewire through the lumen of the catheter and advanced the wire up the ureter. We removed the access catheter and passed a 6 [place] variable length stent over the wire. We position the stent such that the proximal end was curled in the renal pelvis and the distal end was curled in the bladder. The positioning of both stents was confirmed both fluoroscopically and cystoscopically. There was at least 1 stone visible within the bladder but we did not address that stone today. The bladder was emptied and the cystoscope was withdrawn. We will make arrangements for a ureteroscopy with holmium laser lithotripsy of all of his ureteral stones at a later date. The patient tolerated this procedure well with no complications.
--- NOTE | 2023-12-20 15:45 | W.ANESPOSTOP ---
Postoperative Evaluation Date, Time and Location Date Performed: 12/20/23 Time Performed: 15:40 Patient Location: Day Surgery Unit Vital Signs Most Recent Imported Vital Signs: Most Recent Vital Signs Temp Pulse Resp BP Pulse Ox 36.2 C L 60 16 102/65 94 12/20/23 15:31 12/20/23 15:31 12/20/23 15:31 12/20/23 15:31 12/20/23 15:31 Pain Score Most Recent Pain Score: Most Recent Pain Score Pain Level 0 12/20/23 15:31 Assessment Mental Status: Awake (Alert & Oriented to Patient Baseline) Airway and Respiratory Function: Patent airway with normal (patient baseline) respiratory exam Cardiovascular Function: Hemodynamically Stable Hydration Status: Adequately Hydrated Nausea & Vomiting: No Nausea or Vomiting Pain: Pt. Denies Any Pain Peripheral Nerve Block: Patient did not receive a nerve block
[2023-12-20 16:10] VITALS: BP 130/76; PULSE 63; RESP 16; TEMP 36.2; O2SAT 98
== END 2023-12-20 16:40 | disposition home or self-care (01) ==
LOC: ER 09:11 → DSU 14:47
PROVIDERS: Emergency Provider Emergency Medicine; PCP Family Medicine; Visit Provider Urology
PROC: 0TJB8ZZ Inspection of Bladder, Via Natural or Artificial Opening Endoscopic (ICD-10-PCS; CPT 74450; principal; 2023-12-20 13:15)
DX: N13.2 Hydronephrosis with renal and ureteral calculous obstruction (principal); F40.02 Agoraphobia without panic disorder; R97.20 Elevated prostate specific antigen [PSA]; K21.9 Gastro-esophageal reflux disease without esophagitis; G47.33 Obstructive sleep apnea (adult) (pediatric); I25.10 Atherosclerotic heart disease of native coronary artery without angina pectoris; E55.9 Vitamin D deficiency, unspecified; E78.2 Mixed hyperlipidemia
CPT/HCPCS: 52332; 80053; 83690; 84145; 87637; 74176; 74420; 81003; 81015; 82248; 83735; 84439; 84443; 85025; 87086; J0690; J1100; J1170; J1885; J2405; J2704; Q9967

== ENCOUNTER 2023-12-26 08:15 | Day surgery (SDC) | payer BC, SELFPAY ==
[2023-12-26] VITALS (22 sets, daily range): BP systolic 100–137; BP diastolic 60–87; PULSE 60–74; RESP 13–28; TEMP 36.2–36.5; O2SAT 94–100; BMI 29.2
[2023-12-26] MEDS: Lactated Ringers 1,000 ML 80 ML IV (08:55)
--- NOTE | 2023-12-26 09:10 | ANES.PREOP_ITS ---
General Info Date of Service Date Performed: 12/26/23 Height: 5 ft 11 in Weight: 95.2 kg Body Mass Index (BMI): 29.2 Surgical Procedure: Operation Date: 12/26/23 10:25 Proposed Procedure Side Surgeon p Cystoscopy/Laser/Retrograde/Ureteroscopy Bilateral Ottoniel Mcintyre MD Meds Allergies and Home Medications Allergies Allergy/AdvReac Type Severity Reaction Status Date / Time cefuroxime axetil (From AdvReac Unknown Hives Verified 12/26/23 08:36 Ceftin) clindamycin AdvReac Unknown Hives Verified 12/26/23 08:36 paroxetine AdvReac Unknown active Verified 12/26/23 08:36 dreams dust Allergy Unknown sneezing Uncoded 12/26/23 08:36 Home Medication ?Medication ?Instructions ?Recorded diphenhydramine HCl 25 mg capsule 25 mg PO PRN 03/11/17 (Benadryl) aspirin 81 mg tablet,delayed 81 mg PO DAILY 06/02/21 release cholecalciferol (vitamin D3) 25 1,000 unit PO DAILY 01/30/22 mcg (1,000 unit) capsule ezetimibe 10 mg tablet (Zetia) 10 mg PO DAILY #90 tabs 02/26/23 rosuvastatin 10 mg tablet (Crestor) 10 mg PO DAILY #90 tabs 02/26/23 finasteride 5 mg tablet See Rx Instructions .Route 11/19/23 .COMPLEX #90 tabs doxycycline hyclate 50 mg tablet 50 mg PO DAILY 12/11/23 tramadol 50 mg tablet 50 mg PO Q6H PRN pain #20 tabs 12/20/23 Current Visit Medications: Current Medications Generic Name Dose Route Start Last Admin Trade Name Freq PRN Reason Stop Dose Admin Ringer's Solution 1,000 mls @ 80 mls/hr 12/26/23 06:00 12/26/23 08:55 IV 01/24/24 23:59 80 mls/hr INFUSION GALLO Administration Cefazolin Sodium/Dextrose 2 gm in 50 mls @ 100 mls/hr 12/26/23 06:00 Ancef Duplex IVPB 12/26/23 16:00 PREOP GALLO IV Miscellaneous Supplies 1 each 12/26/23 06:00 Iv Access IV 01/24/24 23:59 DIRECTED GALLO Sodium Chloride 0 ml 12/26/23 06:00 Normal Saline Flush 10 Ml Syr IV 01/24/24 23:59 PRN PRN Sodium Chloride 0 ml 12/26/23 06:00 Normal Saline 10 Ml Vial IJ 01/24/24 23:59 DIRECTED PRN Sterile Water 0 ml 12/26/23 06:00 Water,Injection,Sterile 10 Ml Vial IJ 01/24/24 23:59 DIRECTED PRN PFSH Active Problems Active Problems: Problem Status Onset Code Hydronephrosis concurrent with and due to calculi of kidney and ureter Acute N13.2 Kidney stones Chronic N20.0 Bilateral kidney stones Acute 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 Lymph node disorder Acute I89.9 Impacted cerumen Acute H61.20 Cementosis Acute K03.4 Ganglion cyst Acute M67.40 Tinea manus Acute B35.2 Agoraphobia without history of panic disorder Acute 04/22/86 F40.02 Antibiotic long-term use Acute 10/04/15 Z79.2 Benign neoplasm of large intestine Acute 03/02/09 D12.6 ED (erectile dysfunction) Acute 10/27/13 N52.9 Elevated prostate specific antigen [PSA] Acute 01/28/17 R97.20 Extrinsic asthma, unspecified Acute 05/12/12 J45.909 Family history of colon cancer Acute 09/14/11 Z80.0 GERD (gastroesophageal reflux disease) Acute 01/18/15 K21.9 History of aortic aneurysm repair Acute 03/24/15 Z98.890, Z86.79 Hyperuricosuria Acute 01/28/17 R82.993 Kidney stone Acute 08/20/10 N20.0 Migraine aura without headache Acute 09/25/17 G43.109 Mood disturbance Acute 06/05/16 R45.86 Obstructive sleep apnea syndrome Acute 09/14/11 G47.33 PIN (prostatic intraepithelial neoplasia) Acute 11/22/14 N42.31 Paresthesias Acute 03/28/15 R20.2 Seasonal allergic rhinitis Acute 09/14/11 J30.2 Tinnitus Acute 01/18/15 H93.19 Vitamin D deficiency Acute 01/18/15 E55.9 Mixed hyperlipidemia Acute 02/25/18 E78.2 Arteriosclerosis of coronary artery Acute I25.10 Tick bite Acute 03/31/13 W57.XXXA Pruritic rash Acute 11/19/16 L28.2 Paresthesia of right upper limb Acute 10/27/13 R20.2 Diverticulosis of colon without diverticulitis Acute 09/14/11 K57.30 Diverticulitis of intestine Acute 01/18/15 K57.92 Neuralgia Acute 01/18/15 M79.2 Plantar fasciitis, bilateral Acute M72.2 Neuropathy, intercostal nerve Acute G58.0 Shortness of breath Acute R06.02 Coronary artery disease Chronic I25.10 Medical History Medical History History of tick-borne disease 9 day hospitalization, [facility] antibiotic treatment Mass of left parotid gland Bladder stone Giardiasis Left ureteral stone Bacteremia due to Escherichia coli (01/18/15) Atrioventricular block, complete Pruritic rash (11/19/16) Right palm , responds to Epsom salts, transiently to steroid cream Palmar erythema (08/07/16) Right palm , responds to Epsom salts, transiently to steroid cream Aortic aneurysm (12/02/14) 5.14 cm ascending aorta CTA chest and abdomen w/out contrast Surgical History Surgical History Hx of cystoscopy kidney stone removal; June 2020 Hx of colectomy hx of ruptured colon with colostomy and reversal. 18 inches less of intestine per pt. History of laryngoscopy (~12/21/14) H/O colonoscopy (~04/26/14) w/ bx History of temporal artery biopsy (~11/27/14) bilaterally H/O vasectomy History of wisdom tooth extraction S/P tonsillectomy (~1971) H/O elbow surgery (~1986) Hx of colostomy (~08/2010) [place], perforated diverticulitis Re-Anastomosis 11/2010 s/p valve sparing root replacement Done at [facility] [place] 03/13/15 colonoscopy w/ bx (07/29/17) Prostate Biopsy with imaging guidance (11/25/14) Dr Hoang Tobacco Smoking/Tobacco Use Status: Never Alcohol Alcohol Intake: never Substance Use Substance use: Never Substance use type: does not use Vital Signs and Lab Results Vital Signs Most Recent Vital Signs in EMR: Most Recent Vital Signs Temp Pulse Resp BP Pulse Ox 36.5 C 69 16 137/87 99 12/26/23 08:31 09/05/24 08:31 12/26/23 08:31 12/26/23 08:31 12/26/23 08:31 Lab Results Blood Type / Crossmatch: No Data to Display Complete Blood Count: White Blood Count 5.85 10^3/uL (4.4-10.8) 12/20/23 07:45 Red Blood Count 4.15 10^6/uL (4.36-5.78) L 12/20/23 07:45 Hemoglobin 13.4 g/dL (13.5-17.5) L 12/20/23 07:45 Hematocrit 38.4 % (40.0-50.0) L 12/20/23 07:45 Platelet Count 214 10^3/uL (130-400) 12/20/23 07:45 Complete Metabolic Panel: Sodium 138 mmol/L (136-145) 12/20/23 07:45 Potassium 3.8 mmol/L (3.5-5.1) 12/20/23 07:45 Chloride 102 mmol/L (98-107) 12/20/23 07:45 Carbon Dioxide 26.3 mmol/L (21.0-32.0) 12/20/23 07:45 BUN 20 mg/dL (7-18) H 12/20/23 07:45 Creatinine 1.8 mg/dL (0.70-1.30) H 12/20/23 07:45 Est GFR (CKD-EPI 2020) 42.03 (mL/min/1.73m2) 12/20/23 07:45 Magnesium 2.1 mg/dL (1.8-2.4) 12/20/23 07:45 Calcium 9.2 mg/dL (8.5-10.1) 12/20/23 07:45 Albumin 3.7 g/dL (3.4-5.0) 12/20/23 07:45 Glucose 102 mg/dL (74-106) 12/20/23 07:45 Liver Function Panel: Alanine Aminotransferase (ALT/SGPT) 35 U/L (16-63) 12/20/23 07: 45 Aspartate Amino Transf (AST/SGOT) 31 U/L (15-37) 12/20/23 07:45 Coagulation Panel: No Data to Display Cardiac Panel: No Data to Display Arterial Blood Gas: No Data to Display Venous Blood Gas: No Data to Display Pancreas Panel: Lipase 48 U/L (16-77) 12/20/23 07:45 Thyroid Panel: Thyroid Stimulating Hormone (TSH) 5.43 uIU/mL (0.36-3.74) H 12/20/23 07:45 Infectious Disease: Coronavirus (COVID-19)(PCR) Negative (Negative) 12/20/23 07:34 Coronavirus 2019 Source Nasopharynx 12/20/23 07:34 Influenza Virus Type A (PCR) Negative (Negative) 12/20/23 07:3 4 Influenza Virus Type B (PCR) Negative (Negative) 12/20/23 07:3 4 Respiratory Syncytial Virus (PCR) Negative (Negative) 12/20/23 07:34 Blood Cultures: No Data to Display Toxicology Panel: No Data to Display Imaging and Studies Imaging and Studies Study information below may be from another EMR and interpreted by another provider. Please see original notes in EMR for more complete details. EKG Summary: 09/04/22: Exam: Resting ECG Reason for Exam: CAD Patient Location: O HR:96 bpm ECG Measurements Heart Rate 96 AXIS NJ 164 P 78 QRSd 95 QRS 65 QT 337 T37 QTc 426 Conclusion Sinus rhythm...normal P axis, V-rate 50- 99 Probable left atrial enlargement...P >50mS, <-0.10mV V1 Otherwise normal ECG Stress Test Summary: 09/2019: 13 METS, no symptoms or evidence of ischemia. upsloping ST depression in the lateral leads towards the end of exercise likely representing j-junction depression. LVEF 51%, no ischemia on imaging portion. Echocardiogram Summary: 12/08/2022: ([facility] [place] External Report): EF 60%, No significant valvular lesions CT Summary: head/neck CT 2015: negative carotid and intracranial CT, no carotid dissection. Carotid Artery Summary:: 2015: no significant stenosis. Anesthesia Assessment and Plan Anesthesia History Personal History: No History of Anesthesia Complications Family History: No Family History of Anesthesia Complications Exercise Tolerance Exercise Tolerance: Metabolic Equivalents>4 Cardiac & Pulmonary Exam Cardiac Exam: Normal S1/S2 Heart Sounds Pulmonary Exam: Clear Bilateral Breath Sounds Implantable Cardiac Device Does patient have a Pacemaker or an ICD?: No Airway Exam Known Difficult Airway: No Mallampati Class: 1 Mouth Opening: Normal (> 3cm) Thyromental Distance: Greater than 3 cm Neck Range of Motion: Full ROM Neck Circumference: Normal Teeth Condition: Normal Dentition and Other ASA Classification ASA Score: ASA 2 Emergency Case?: No NPO Status NPO Status: NPO Clears >2 hours, Solids >8 hours Anesthesia Plan Resuscitation Status: Full Code Anesthesia Technique: General Anesthesia Airway Planned: Endotracheal Tube Monitors Used: Standard Monitors Preoperative Comments:: 63 yo male for stent removal and stone extraction. Was here 12/19 for stent placement. Pain currently 2/10, but can get to 8/10. Sig PMHx: CAD (LAD 45%, on ASA), s/p ascending Ao aneurysm repair, CHANCE (uses CPAP), GERD (bad ~5 years ago starting sleeps with the HOB elevated. however, denies GERD at this point, but has not changed his sleeping position). Never smoker/EtOH. Previous Anes: - cysto, prop, natural airway, no issues. - cysto x 2, prop, LMA 4 and 5, no issues.
--- NOTE | 2023-12-26 09:50 | W.PM.HP.N ---
Date of service: 12/26/23 Time of Service: 09:50 Assessment and Plan Assessment and plan (1) Hydronephrosis concurrent with and due to calculi of kidney and ureter: Status: Acute Assessment and plan: We will plan on cystoscopy, holmium laser lithotripsy of bladder stones. Bilateral ureteroscopy and holmium laser lithotripsy of his ureteral and renal stones. History of Present Illness History of Present Illness Chief Complaint: Bilateral ureteral stones Narrative: This is a 63-year-old gentleman who has a history of bilateral kidney stones. His stone burden was so large that we actually had made a referral for him to meet with the providers at [facility] for consideration of percutaneous nephrolithotomy. In the interim, stones migrated into the ureter simultaneously. He had bilateral hydronephrosis and worsening renal function. We placed a ureteral stent on him emergently last week. He comes in now for ureteroscopy to treat his ureteral stones. He also has a stone in the bladder that needs to be addressed. Review of Systems Narrative: No fevers or chills Seasonal aleries. No vision change or dysphasia No diabetes or thyroid dysfunction Sleep apnea. No shortness of breath, cough or hemoptysis No chest pain or palpitations GERD. No hepatitis, ulcers, jaundice Hx migraines. No seizures, strokes or peripheral neuropathy No bleeding disorders or anemia No gout PFSH All Active Problems Hydronephrosis concurrent with and due to calculi of kidney and ureter (Acute) Kidney stones (Chronic) Bilateral kidney stones (Acute) Endogenous hyperlipidemia (Acute) Lymph node disorder (Acute) Impacted cerumen (Acute) Cementosis (Acute) Ganglion cyst (Acute) Tinea manus (Acute) Agoraphobia without history of panic disorder (Acute 04/22/86) began during grad school; NORTRIPTYLINE EFFECTIVE, WORSE WITH EXCESS CAFFEINE Antibiotic long-term use (Acute 10/04/15) per Dr Theo Daley for possible Lyme related Benign neoplasm of large intestine (Acute 03/02/09) TUBULAR ADENOMA 2008, Hepatic Flexure (hartong) ED (erectile dysfunction) (Acute 10/27/13) Elevated prostate specific antigen [PSA] (Acute 01/28/17) Dr. Hoang neg bx, updated PSA favoirable suggesing previous related to inflammation/inf, Free PSA indeterminate Extrinsic asthma, unspecified (Acute 05/12/12) ? related to GERD Family history of colon cancer (Acute 09/14/11) COLON 02/2009; rpt q 3yr GERD (gastroesophageal reflux disease) (Acute 01/18/15) History of aortic aneurysm repair (Acute 03/24/15) 02/2015 [facility] [place] endocarditis prophylaxis w/ Amox valve sparing aortic root replacement w/ 30 mm Valsalva graft Hyperuricosuria (Acute 01/28/17) Dr. Joel Hoang Kidney stone (Acute 08/20/10) FOUND ON W/U ABD PAIN 08/2010 [place] COD; POS FH (SISTERS, FATHER) Migraine aura without headache (Acute 09/25/17) Mood disturbance (Acute 06/05/16) decr energy due to Lyme meds Obstructive sleep apnea syndrome (Acute 09/14/11) DENTAL APPLIANCE AND FLONASE, LAST SLEEP STUDY [facility] [place] 06/201112/20/18 polysomnogram at [facility] Sleep Med. CPAP recommended Sleep Study 09/21/17 [facility] [place]-CPAP recommended 08/22/18 CPAP started. [facility] Sleep Medicine PIN (prostatic intraepithelial neoplasia) (Acute 11/22/14) in one of 10 bx specimens, [place] Paresthesias (Acute 03/28/15) NUMBNESS lasting 40 sec to 4 min, L arm, L leg, 3 episodes since d/c [facility] [place] 03/19 Seasonal allergic rhinitis (Acute 09/14/11) Tinnitus (Acute 01/18/15) MRI 12/04 normal Vitamin D deficiency (Acute 01/18/15) Mixed hyperlipidemia (Acute 02/25/18) Arteriosclerosis of coronary artery (Acute ~01/2016) Tick bite (Acute 03/31/13) Pruritic rash (Acute 11/19/16) Paresthesia of right upper limb (Acute 10/27/13) Diverticulosis of colon without diverticulitis (Acute 09/14/11) Diverticulitis of intestine (Acute 01/18/15) Neuralgia (Acute 01/18/15) Plantar fasciitis, bilateral (Acute) Neuropathy, intercostal nerve (Acute) Shortness of breath (Acute) Coronary artery disease (Chronic) Medical History History of tick-borne disease 9 day hospitalization, intermediate card tender antibiotic treatment Mass of left parotid gland Bladder stone Giardiasis Left ureteral stone Bacteremia due to Escherichia coli (01/18/15) Atrioventricular block, complete Pruritic rash (11/19/16) Right palm , responds to Epsom salts, transiently to steroid cream Palmar erythema (08/07/16) Right palm , responds to Epsom salts, transiently to steroid cream Aortic aneurysm (12/02/14) 5.14 cm ascending aorta CTA chest and abdomen w/out contrast Surgical History Hx of cystoscopy kidney stone removal; June 2020 Hx of colectomy hx of ruptured colon with colostomy and reversal. 18 inches less of intestine per pt. History of laryngoscopy (~12/21/14) H/O colonoscopy (~04/26/14) w/ bx History of temporal artery biopsy (~11/27/14) bilaterally H/O vasectomy History of wisdom tooth extraction S/P tonsillectomy (~1971) H/O elbow surgery (~1986) Hx of colostomy (~08/2010) [place], perforated diverticulitis Re-Anastomosis 11/2010 s/p valve sparing root replacement Done at [facility] [place] 03/13/15 colonoscopy w/ bx (07/29/17) Prostate Biopsy with imaging guidance (11/25/14) Dr Hoang Family History Mother Neoplasm AGE 72, Colon cancer, LARGE SCALE ORGAN FAILURE Father , AGE 62 PANCREATIC CA Neoplasm Sister , PNEUMONIA AGE 49 CREST syndrome Colonic polyp Maternal Grandfather Neoplasm COLON CANCER Social History Smoking/Tobacco Use Status: Never Smoking risk assessment performed?: Yes Alcohol Intake: never Drug use: Never Substance use type: does not use Household members: other Details: self, and son Housing: house Number of Children: 2 number of grandchildren: 0 Communication Needs: Hard of Hearing Education Level: master's degree Do you need help understanding health information?: Never current occupation: Retired What is your relationship status?: Panel score (0-1 are the most socially isolated patients): 1 What type of physical activity do you participate in: other Details: active daily Duration: 60-90 minutes/day Frequency: 3-4 times per week Seatbelt use: always Water heater temp set <120 deg: Yes Working smoke detector in home: Yes Fire extinguisher in home: Yes Carbon monox detector in home: Yes Do you feel safe at home: Yes Do you feel safe in your relationship?: Yes Meds Allergies and Home Medications Allergies Allergy/AdvReac Type Severity Reaction Status Date / Time cefuroxime axetil (From AdvReac Unknown Hives Verified 12/26/23 08:36 Ceftin) clindamycin AdvReac Unknown Hives Verified 12/26/23 08:36 paroxetine AdvReac Unknown active Verified 12/26/23 08:36 dreams dust Allergy Unknown sneezing Uncoded 12/26/23 08:36 Home Medications ?Medication ?Instructions ?Recorded ?Confirmed ?Type diphenhydramine HCl 25 mg capsule 25 mg PO PRN 03/11/17 12/26/23 History (Benadryl) aspirin 81 mg tablet,delayed 81 mg PO DAILY 06/02/21 12/25/23 History release cholecalciferol (vitamin D3) 25 1,000 unit PO DAILY 01/30/22 12/26/23 History mcg (1,000 unit) capsule ezetimibe 10 mg tablet (Zetia) 10 mg PO DAILY #90 tabs 02/26/23 12/26/23 Rx rosuvastatin 10 mg tablet (Crestor) 10 mg PO DAILY #90 tabs 02/26/23 12/26/23 Rx finasteride 5 mg tablet See Rx Instructions .Route 11/19/23 12/26/23 Rx .COMPLEX #90 tabs doxycycline hyclate 50 mg tablet 50 mg PO DAILY 12/11/23 12/26/23 History tramadol 50 mg tablet 50 mg PO Q6H PRN pain #20 tabs 12/20/23 12/26/23 Rx Exam Const General: cooperative Neck Neck: supple Resp Effort & Inspection: normal respiratory effort Auscultation: clear to auscultation bilaterally Cardio Rate: regular rate Rhythm: regular rhythm GI Palpation: soft and no masses Neuro General: patient alert, patient awake and patient oriented x3 Results Last Vital Signs Temp 36.5 C 12/26/23 08:31 Pulse 69 12/26/23 08:31 Resp 16 12/26/23 08:31 BP 137/87 12/26/23 08:31 Pulse Ox 99 12/26/23 08:31 Time Spent Time spent with Patient: <40 minutes Time was spent: preparing to see the patient(eg.review tests) and other
[2023-12-26] MEDS: ceFAZolin 2 GM/50 ML BAG IVPB (11:20)
[2023-12-26] MEDS: Omnipaque 300 MG/ML 50 ML BTL (11:36)
[2023-12-26] MEDS: Lidocaine 2% Jelly 11 ML SYR (11:37)
--- NOTE | 2023-12-26 12:00 | DI.RAD_ITS ---
Exam(s) XR RETROGRADE IN OR EXAM: XR RETROGRADE IN OR CLINICAL HISTORY: Bilateral ureteral stones TECHNIQUE: 2D and realtime digital imaging was performed. CONTRAST MATERIAL: Refer to procedure report. COMPARISON: XA XR RETROGRADE IN OR from 12/20/[address] RENAL COLIC WO from 12/20/2023 FINDINGS: Fluoroscopy was provided for Dr. Mcintyre during the performance of a retrograde evaluation of the rafiq l collecting system. Please refer to the procedure report for complete details. Amaurir=16.7 mGy IMPRESSION: RADIATION DOSE DELIVERED: 0.0 [id number] 0
--- NOTE | 2023-12-26 13:17 | PDOC.DSDIS_ITS ---
Date of service: 12/26/23 Time of Service: 13:17 Discharge Plan Disposition Patient Disposition: Home Discharge Details Reason For Visit: bilateral ureteral stones Attending Provider: Ottoniel Mcintyre Primary Care Provider: Thaddeus Benson [place] Meds and New Rx's Prescriptions: No Action aspirin 81 mg tablet,delayed release (DR/EC) 81 mg PO DAILY doxycycline hyclate 50 mg tablet 50 mg PO DAILY rosuvastatin [Crestor] 10 mg tablet 10 mg PO DAILY Qty: 90 3RF ezetimibe [Zetia] 10 mg tablet 10 mg PO DAILY Qty: 90 3RF diphenhydramine HCl [Benadryl] 25 MG capsule 25 mg PO PRN cholecalciferol (vitamin D3) 25 mcg (1,000 unit) capsule 1,000 unit PO DAILY finasteride 5 mg tablet See Rx Instructions .ROUTE .COMPLEX Qty: 90 3RF Dose Instruction: TAKE 1 TABLET BY MOUTH DAILY FOR PROSTATE Rx Instructions: TAKE 1 TABLET BY MOUTH DAILY FOR PROSTATE tramadol 50 mg tablet 50 mg PO Q6H PRN (Reason: pain) Qty: 20 0RF Discharge Instructions Additional Instructions: no need to strain urine my office will contact you to arrange for your next cystoscopy, stent removal, ureteroscopy and removal of any remaining stone fragments Discharge Orders Discharge Orders: Discharge Order (Routine); Ordered 12/26/23 Ordered By: Ottoniel Mcintyre DS: Diagnosis Discharge Diagnosis (1) Hydronephrosis concurrent with and due to calculi of kidney and ureter: Status: Acute
--- NOTE | 2023-12-26 13:21 | W.PM.OP ---
Date of service: 12/26/23 Time of Service: 13:21 Operative Note Operative Note DATE OF PROCEDURE: 12/26/23 PRE-OP DIAGNOSIS: bilateral ureteral stones bilateral kidney stones PROCEDURE: cystoscopy, removed bilateral ureteral stents, bilateral retrograde pyelogram, bilateral flexible ureteroscopy, holmium laser lithotripsy of ureteral and kidney stones, extraction bilateral ureteral stone fragments, insert bilateral ureteral stents SURGEON: Ottoniel Mcintyre ANESTHESIA TYPE: Local By Surgeon and General LMA/ETT Refer to Anesthesia Record ESTIMATED BLOOD LOSS: 5 PATHOLOGY: other (Stones for chemical analysis) COMPLICATIONS: None Patient was transported to: PACU Patient's condition: stable Implants: Bilateral 4.8 Macedonian by 22 to 30 cm ureteral stents Indications: This is a 63-year-old gentleman who has a history of bilateral kidney stones. He had such large stone burden that we actually referred him for consideration of percutaneous nephrolithotomy. He presented to the emergency department last week with renal colic. He was found to have migration of his kidney stones into the ureters which was causing bilateral hydronephrosis and worsening renal function. I emergently placed bilateral ureteral stents. He comes in now for elective bilateral ureteroscopy and holmium laser lithotripsy of his stones. Findings: Bilateral ureteral stones Bilateral kidney stones Procedure Description: The patient was given preoperative IV antibiotics and brought to the operating room on 12/26/2023. After successful induction of general anesthesia, he was placed in the dorsal lithotomy position. His genitalia was prepped and draped sterilely. 2% Xylocaine jelly was instilled into the urethra to act as a local anesthetic. A 22 Macedonian rigid cystoscope was passed through the urethra into the bladder. The urethra and bladder were inspected with the 30 degree lens. The pendulous, bulbar and membranous urethra's appeared normal with no strictures. The prostatic urethra again showed trilobar enlargement with a significant median lobe. The bladder neck was entered and both ureteral stents were visualized. I began on the right side and grasped the stent with alligator forceps and brought the stent out to the level of the urethral meatus. A Glidewire was advanced through the lumen of the stent and the stent was removed. I then passed a dual-lumen catheter over the wire and a retrograde pyelogram was obtained by injecting Omnipaque through the access catheter under fluoroscopic guidance. Multiple areas of filling defects were seen along the ureter. I passed a second guidewire and removed the dual-lumen catheter. We chose one of the wires as a working wire and the second as a safety wire. I passed a ureteral access sheath over the working wire. I then passed a flexible ureteroscope through the lumen of the access sheath. We encountered multiple areas of large stone burden within the ureter. Each of these areas were treated with a 272 ?m holmium laser fiber. We predominantly used dusting settings and withdrew multiple stone fragments using a 0 tip stone basket. As we methodically worked our way up the ureter we got all the way up to the renal pelvis. Any small stones that were encountered in the calyces were likewise treated with the holmium laser. All extracted stone fragments were sent to pathology for chemical analysis. At the completion of the right sided procedure, we passed a 4.8 Macedonian variable length stent back over the safety wire. The proximal end of the stent was curled in the renal pelvis and the distal end was curled within the bladder. We then performed a similar procedure on the patient's left side. We again grasped the stent and brought it to the level of the urethral meatus. A guidewire was passed through the lumen of the stent and the stent was removed. A dual-lumen catheter was advanced over the wire and a retrograde pyelogram was obtained by injecting Omnipaque through the access catheter under fluoroscopic guidance. A single area of ureteral stone was identified on the left sided retrograde. The second wire was then positioned through the dual-lumen catheter we chose one of the wires as a safety wire and the other as a working wire. I advanced the ureteral access sheath over the working wire leaving the safety wire in place. Flexible ureteroscopy encountered a single area of ureteral stone that was likewise treated with a 272 ?m fiber. Multiple stone fragments were extracted with a 0 tip stone basket. Ultimately, I was able to pass the scope all the way up to the renal pelvis and we treated additional stones in the calyces with a 272 ?m fiber. Again, we predominantly used dusting settings on the holmium laser. We again placed a 4.8 Macedonian variable length stent over the safety wire. We positioned the proximal end of the stent in the renal pelvis and the distal end within the bladder. The positioning and end of the stents were confirmed both fluoroscopically and cystoscopically. The patient tolerated this procedure well with no complications. We will make arrangements for a planned return to the operating room to remove the stents, repeat flexible ureteroscopy and extract any residual stone fragments.
--- NOTE | 2023-12-26 14:32 | W.ANESPOSTOP ---
Postoperative Evaluation Date, Time and Location Date Performed: 12/26/23 Time Performed: 14:32 Patient Location: Day Surgery Unit Vital Signs Most Recent Imported Vital Signs: Most Recent Vital Signs Temp Pulse Resp BP Pulse Ox 36.2 C L 60 16 117/69 97 12/26/23 14:05 12/26/23 14:05 12/26/23 14:05 12/26/23 14:05 12/26/23 14:05 Pain Score Most Recent Pain Score: Most Recent Pain Score Pain Level 0 12/26/23 14:05 Assessment Mental Status: Awake (Alert & Oriented to Patient Baseline) Airway and Respiratory Function: Patent airway with normal (patient baseline) respiratory exam Cardiovascular Function: Hemodynamically Stable Hydration Status: Adequately Hydrated Nausea & Vomiting: No Nausea or Vomiting Pain: Pt. Denies Any Pain Peripheral Nerve Block: Patient did not receive a nerve block
[2023-12-26] MEDS: Phenazopyridine 200 MG TAB PO (14:44)
[2024-01-07 13:43] LABS: Source: Ureter
== END 2023-12-26 15:07 | disposition home or self-care (01) ==
PROVIDERS: PCP Family Medicine; Visit Provider Urology
PROC: (CPT 52356; principal; 2023-12-26 10:15)
DX: N13.2 Hydronephrosis with renal and ureteral calculous obstruction (principal)
CPT/HCPCS: 52356; 74420; 82365; J0690; J1100; J1885; J2001; J2250; J2371; J2405; J2704; J3010; Q9967

== ENCOUNTER 2024-01-02 11:28 | Day surgery (SDC) | payer BC, SELFPAY ==
[2024-01-02] VITALS (22 sets, daily range): BP systolic 80–130; BP diastolic 49–78; PULSE 44–55; RESP 11–18; TEMP 36–36.5; O2SAT 95–100; BMI 29.2
--- NOTE | 2024-01-02 10:22 | ANES.PREOP_ITS ---
General Info Date of Service Date Performed: 01/02/24 Height: 5 ft 11 in Weight: 95.2 kg Body Mass Index (BMI): 29.2 Surgical Procedure: Operation Date: 01/02/24 13:10 Proposed Procedure Side Surgeon p Cystoscopy/Laser/Retrograde/Ureteroscopy/Stent Removal Bilateral Ottoniel Mcintyre MD Meds Allergies and Home Medications Allergies Allergy/AdvReac Type Severity Reaction Status Date / Time clindamycin AdvReac Unknown Hives Verified 01/02/24 11:36 paroxetine AdvReac Unknown active Verified 01/02/24 11:36 dreams dust AdvReac Unknown sneezing Uncoded 01/02/24 11:36 Home Medication ?Medication ?Instructions ?Recorded diphenhydramine HCl 25 mg capsule 25 mg PO PRN 03/11/17 (Benadryl) aspirin 81 mg tablet,delayed 81 mg PO DAILY 06/02/21 release cholecalciferol (vitamin D3) 25 1,000 unit PO DAILY 01/30/22 mcg (1,000 unit) capsule ezetimibe 10 mg tablet (Zetia) 10 mg PO DAILY #90 tabs 02/26/23 rosuvastatin 10 mg tablet (Crestor) 10 mg PO DAILY #90 tabs 02/26/23 finasteride 5 mg tablet See Rx Instructions .Route 11/19/23 .COMPLEX #90 tabs doxycycline hyclate 50 mg tablet 50 mg PO DAILY 12/11/23 tramadol 50 mg tablet 50 mg PO Q6H PRN pain #20 tabs 12/20/23 Current Visit Medications: Current Medications Generic Name Dose Route Start Last Admin Trade Name Freq PRN Reason Stop Dose Admin Ringer's Solution 1,000 mls @ 80 mls/hr 01/02/24 06:00 IV 01/31/24 23:59 INFUSION GALLO Cefazolin Sodium/Dextrose 2 gm in 50 mls @ 100 mls/hr 01/02/24 06:00 Ancef Duplex IVPB 01/02/24 16:00 PREOP GALLO IV Miscellaneous Supplies 1 each 01/02/24 06:00 Iv Access IV 01/31/24 23:59 DIRECTED GALLO Sodium Chloride 0 ml 01/02/24 06:00 Normal Saline Flush 10 Ml Syr IV 01/31/24 23:59 PRN PRN Sodium Chloride 0 ml 01/02/24 06:00 Normal Saline 10 Ml Vial IJ 01/31/24 23:59 DIRECTED PRN Sterile Water 0 ml 01/02/24 06:00 Water,Injection,Sterile 10 Ml Vial IJ 01/31/24 23:59 DIRECTED PRN PFSH Active Problems Active Problems: Problem Status Onset Code Hydronephrosis concurrent with and due to calculi of kidney and ureter Acute N13.2 Kidney stones Chronic N20.0 Bilateral kidney stones Acute 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 Lymph node disorder Acute I89.9 Impacted cerumen Acute H61.20 Cementosis Acute K03.4 Ganglion cyst Acute M67.40 Tinea manus Acute B35.2 Agoraphobia without history of panic disorder Acute 04/22/86 F40.02 Antibiotic long-term use Acute 10/04/15 Z79.2 Benign neoplasm of large intestine Acute 03/02/09 D12.6 ED (erectile dysfunction) Acute 10/27/13 N52.9 Elevated prostate specific antigen [PSA] Acute 01/28/17 R97.20 Extrinsic asthma, unspecified Acute 05/12/12 J45.909 Family history of colon cancer Acute 09/14/11 Z80.0 GERD (gastroesophageal reflux disease) Acute 01/18/15 K21.9 History of aortic aneurysm repair Acute 03/24/15 Z98.890, Z86.79 Hyperuricosuria Acute 01/28/17 R82.993 Kidney stone Acute 08/20/10 N20.0 Migraine aura without headache Acute 09/25/17 G43.109 Mood disturbance Acute 06/05/16 R45.86 Obstructive sleep apnea syndrome Acute 09/14/11 G47.33 PIN (prostatic intraepithelial neoplasia) Acute 11/22/14 N42.31 Paresthesias Acute 03/28/15 R20.2 Seasonal allergic rhinitis Acute 09/14/11 J30.2 Tinnitus Acute 01/18/15 H93.19 Vitamin D deficiency Acute 01/18/15 E55.9 Mixed hyperlipidemia Acute 02/25/18 E78.2 Arteriosclerosis of coronary artery Acute ~01/2016 I25.10 Tick bite Acute 03/31/13 W57.XXXA Pruritic rash Acute 11/19/16 L28.2 Paresthesia of right upper limb Acute 10/27/13 R20.2 Diverticulosis of colon without diverticulitis Acute 09/14/11 K57.30 Diverticulitis of intestine Acute 01/18/15 K57.92 Neuralgia Acute 01/18/15 M79.2 Plantar fasciitis, bilateral Acute M72.2 Neuropathy, intercostal nerve Acute G58.0 Shortness of breath Acute R06.02 Coronary artery disease Chronic I25.10 Medical History Medical History (Updated 01/02/24 @ 11:56 by Ottoniel Mcintyre MD) Bilateral kidney stones Kidney stones History of tick-borne disease 9 day hospitalization, group home antibiotic treatment Mass of left parotid gland Bladder stone Giardiasis Left ureteral stone Bacteremia due to Escherichia coli (01/18/15) Atrioventricular block, complete Pruritic rash (11/19/16) Right palm , responds to Epsom salts, transiently to steroid cream Palmar erythema (08/07/16) Right palm , responds to Epsom salts, transiently to steroid cream Aortic aneurysm (12/02/14) 5.14 cm ascending aorta CTA chest and abdomen w/out contrast Surgical History Surgical History Hx of cystoscopy kidney stone removal; June 2020 Hx of colectomy hx of ruptured colon with colostomy and reversal. 18 inches less of intestine per pt. History of laryngoscopy (~12/21/14) H/O colonoscopy (~04/26/14) w/ bx History of temporal artery biopsy (~11/27/14) bilaterally H/O vasectomy History of wisdom tooth extraction S/P tonsillectomy (~1971) H/O elbow surgery (~1986) Hx of colostomy (~08/2010) [place], perforated diverticulitis Re-Anastomosis 11/2010 s/p valve sparing root replacement Done at [facility] [place] 03/13/15 colonoscopy w/ bx (07/29/17) Prostate Biopsy with imaging guidance (11/25/14) Dr Hoang Tobacco Smoking/Tobacco Use Status: Never Alcohol Alcohol Intake: never Substance Use Substance use: Never Substance use type: does not use Vital Signs and Lab Results Vital Signs Most Recent Vital Signs in EMR: Temp Pulse Resp BP Pulse Ox 36.4 C L 55 L 16 130/78 99 01/02/24 11:39 01/02/24 11:39 01/02/24 11:39 01/02/24 11:39 01/02/24 11:39 Lab Results Blood Type / Crossmatch: No Data to Display Complete Blood Count: White Blood Count 5.85 10^3/uL (4.4-10.8) 12/20/23 07:45 Red Blood Count 4.15 10^6/uL (4.36-5.78) L 12/20/23 07:45 Hemoglobin 13.4 g/dL (13.5-17.5) L 12/20/23 07:45 Hematocrit 38.4 % (40.0-50.0) L 12/20/23 07:45 Platelet Count 214 10^3/uL (130-400) 12/20/23 07:45 Complete Metabolic Panel: Sodium 138 mmol/L (136-145) 12/20/23 07:45 Potassium 3.8 mmol/L (3.5-5.1) 12/20/23 07:45 Chloride 102 mmol/L (98-107) 12/20/23 07:45 Carbon Dioxide 26.3 mmol/L (21.0-32.0) 12/20/23 07:45 BUN 20 mg/dL (7-18) H 12/20/23 07:45 Creatinine 1.8 mg/dL (0.70-1.30) H 12/20/23 07:45 Est GFR (CKD-EPI 2020) 42.03 (mL/min/1.73m2) 12/20/23 07:45 Magnesium 2.1 mg/dL (1.8-2.4) 12/20/23 07:45 Calcium 9.2 mg/dL (8.5-10.1) 12/20/23 07:45 Albumin 3.7 g/dL (3.4-5.0) 12/20/23 07:45 Glucose 102 mg/dL (74-106) 12/20/23 07:45 Liver Function Panel: Alanine Aminotransferase (ALT/SGPT) 35 U/L (16-63) 12/20/23 07: 45 Aspartate Amino Transf (AST/SGOT) 31 U/L (15-37) 12/20/23 07:45 Coagulation Panel: No Data to Display Cardiac Panel: No Data to Display Arterial Blood Gas: No Data to Display Venous Blood Gas: No Data to Display Pancreas Panel: Lipase 48 U/L (16-77) 12/20/23 07:45 Thyroid Panel: Thyroid Stimulating Hormone (TSH) 5.43 uIU/mL (0.36-3.74) H 12/20/23 07:45 Infectious Disease: Coronavirus (COVID-19)(PCR) Negative (Negative) 12/20/23 07:34 Coronavirus 2019 Source Nasopharynx 12/20/23 07:34 Influenza Virus Type A (PCR) Negative (Negative) 12/20/23 07:3 4 Influenza Virus Type B (PCR) Negative (Negative) 12/20/23 07:3 4 Respiratory Syncytial Virus (PCR) Negative (Negative) 12/20/23 07:34 Blood Cultures: No Data to Display Toxicology Panel: No Data to Display Imaging and Studies Imaging and Studies Study information below may be from another EMR and interpreted by another provider. Please see original notes in EMR for more complete details. EKG Summary: 09/04/22: Exam: Resting ECG Reason for Exam: CAD Patient Location: O HR:96 bpm ECG Measurements Heart Rate 96 AXIS SD 164 P 78 QRSd 95 QRS 65 QT 337 T37 QTc 426 Conclusion Sinus rhythm...normal P axis, V-rate 50- 99 Probable left atrial enlargement...P >50mS, <-0.10mV V1 Otherwise normal ECG Stress Test Summary: 09/2019: 13 METS, no symptoms or evidence of ischemia. upsloping ST depression in the lateral leads towards the end of exercise likely representing j-junction depression. LVEF 51%, no ischemia on imaging portion. Echocardiogram Summary: 12/08/2022: ([facility] [place] External Report): EF 60%, No significant valvular lesions CT Summary: head/neck CT 2014: negative carotid and intracranial CT, no carotid dissection. Carotid Artery Summary:: 2015: no significant stenosis. Anesthesia Assessment and Plan Anesthesia History Personal History: No History of Anesthesia Complications Family History: No Family History of Anesthesia Complications Exercise Tolerance Exercise Tolerance: Metabolic Equivalents>4 Cardiac & Pulmonary Exam Cardiac Exam: Normal S1/S2 Heart Sounds Pulmonary Exam: Clear Bilateral Breath Sounds Implantable Cardiac Device Does patient have a Pacemaker or an ICD?: No Airway Exam Known Difficult Airway: No Mallampati Class: 1 Mouth Opening: Normal (> 3cm) Thyromental Distance: Greater than 3 cm Neck Range of Motion: Full ROM Neck Circumference: Normal Teeth Condition: Normal Dentition and Other ASA Classification ASA Score: ASA 3 Emergency Case?: No NPO Status NPO Status: NPO Clears >2 hours, Solids >8 hours Anesthesia Plan Resuscitation Status: Full Code Anesthesia Technique: General Anesthesia Airway Planned: LMA Monitors Used: Standard Monitors Preoperative Comments:: 63 yo male for stone extraction. Denies changes in his health history since last time. Sig PMHx: CAD (LAD 45%, on ASA), s/p ascending Ao aneurysm repair, CHANCE (uses CPAP), GERD (bad ~5 years ago starting sleeps with the HOB elevated. however, de nies GERD at this point, but has not changed his sleeping position). Never smoker/EtOH. Previous Anes: - cysto, masked with OPA, glide 3, no issues. - cysto, prop, natural airway, no issues. - cysto x 2, prop, LMA 4 and 5, no issues.
--- NOTE | 2024-01-02 11:50 | HPE_ITS ---
Date of service: 01/02/24 Time of Service: 11:50 Assessment and Plan Assessment and plan (1) Bilateral ureteral calculi: Status: Acute Assessment and plan: Hopefully, all of his ureteral stones have been successfully fragmented. We will remove both ureteral stents and perform bilateral flexible ureteroscopy. I will extract any residual fragments that are visible. We will also be prepared to treat any larger stone debris with the holmium laser. History of Present Illness History of Present Illness Chief Complaint: Bilateral ureteral stones Narrative: This is a 63-year-old gentleman who has a history of large volume bilateral kidney stones. Stones migrated into the ureter simultaneously causing an increase in his serum creatinine. We treated him with bilateral stent placement. He then underwent ureteroscopy with holmium laser lithotripsy of the ureteral st ones. We were able to treat all of his visible stone, but I was not able to extract all of the stone fragments. We placed a ureteral stent and he presents now for repeat ureteroscopy with extraction of any residual stone fragments. He has had some blood in his urine intermittently over the past week. He is not having much flank pain. He has no fever or chills Review of Systems Narrative: No fevers or chills No vision change or dysphasia No diabetes or thyroid dysfunction No shortness of breath, cough or hemoptysis No chest pain or palpitations GERD. No hepatitis, ulcers, jaundice No seizures or strokes No bleeding disorders or anemia No gout PFSH All Active Problems (Updated 01/02/24 @ 11:56 by Ottoniel Mcintyre MD) Bilateral ureteral calculi (Acute) Hydronephrosis concurrent with and due to calculi of kidney and ureter (Acute) Endogenous hyperlipidemia (Acute) Lymph node disorder (Acute) Impacted cerumen (Acute) Cementosis (Acute) Ganglion cyst (Acute) Tinea manus (Acute) Agoraphobia without history of panic disorder (Acute 04/22/86) began during grad school; NORTRIPTYLINE EFFECTIVE, WORSE WITH EXCESS CAFFEINE Antibiotic long-term use (Acute 10/04/15) per Dr Theo Daley for possible Lyme related Benign neoplasm of large intestine (Acute 03/02/09) TUBULAR ADENOMA 2008, Hepatic Flexure (hartong) ED (erectile dysfunction) (Acute 10/27/13) Elevated prostate specific antigen [PSA] (Acute 01/28/17) Dr. Hoang neg bx, updated PSA favoirable suggesing previous related to inflammation/inf, Free PSA indeterminate Extrinsic asthma, unspecified (Acute 05/12/12) ? related to GERD Family history of colon cancer (Acute 09/14/11) COLON 02/2009; rpt q 3yr GERD (gastroesophageal reflux disease) (Acute 01/18/15) History of aortic aneurysm repair (Acute 03/24/15) 02/2015 [facility] [place] endocarditis prophylaxis w/ Amox valve sparing aortic root replacement w/ 30 mm Valsalva graft Hyperuricosuria (Acute 01/28/17) Dr. Joel Hoang Kidney stone (Acute 08/20/10) FOUND ON W/U ABD PAIN 08/2010 [facility] COD; POS FH (SISTERS, FATHER) Migraine aura without headache (Acute 09/25/17) Mood disturbance (Acute 06/05/16) decr energy due to Lyme meds Obstructive sleep apnea syndrome (Acute 09/14/11) DENTAL APPLIANCE AND FLONASE, LAST SLEEP STUDY [facility] 06/201112/20/18 polysomnogram at [facility] Sleep Med. CPAP recommended Sleep Study 09/21/17 [facility] [place]-CPAP recommended 08/22/18 CPAP started. [facility] [place] Sleep Medicine PIN (prostatic intraepithelial neoplasia) (Acute 11/22/14) in one of 10 bx specimens, Buffy Paresthesias (Acute 03/28/15) NUMBNESS lasting 40 sec to 4 min, L arm, L leg, 3 episodes since d/c [facility] 03/19 Seasonal allergic rhinitis (Acute 09/14/11) Tinnitus (Acute 01/18/15) MRI 12/04 normal Vitamin D deficiency (Acute 01/18/15) Mixed hyperlipidemia (Acute 02/25/18) Arteriosclerosis of coronary artery (Acute ~01/2016) Tick bite (Acute 03/31/13) Pruritic rash (Acute 11/19/16) Paresthesia of right upper limb (Acute 10/27/13) Diverticulosis of colon without diverticulitis (Acute 09/14/11) Diverticulitis of intestine (Acute 01/18/15) Neuralgia (Acute 01/18/15) Plantar fasciitis, bilateral (Acute) Neuropathy, intercostal nerve (Acute) Shortness of breath (Acute) Coronary artery disease (Chronic) Medical History (Updated 01/02/24 @ 11:56 by Ottoniel Mcintyre MD) Bilateral kidney stones Kidney stones History of tick-borne disease 9 day hospitalization, branch services manager antibiotic treatment Mass of left parotid gland Bladder stone Giardiasis Left ureteral stone Bacteremia due to Escherichia coli (01/18/15) Atrioventricular block, complete Pruritic rash (11/19/16) Right palm , responds to Epsom salts, transiently to steroid cream Palmar erythema (08/07/16) Right palm , responds to Epsom salts, transiently to steroid cream Aortic aneurysm (12/02/14) 5.14 cm ascending aorta CTA chest and abdomen w/out contrast Surgical History Hx of cystoscopy kidney stone removal; June 2020 Hx of colectomy hx of ruptured colon with colostomy and reversal. 18 inches less of intestine per pt. History of laryngoscopy (~12/21/14) H/O colonoscopy (~04/26/14) w/ bx History of temporal artery biopsy (~11/27/14) bilaterally H/O vasectomy History of wisdom tooth extraction S/P tonsillectomy (~1971) H/O elbow surgery (~1986) Hx of colostomy (~08/2010) [place], perforated diverticulitis Re-Anastomosis 11/2010 s/p valve sparing root replacement Done at [facility] 03/13/15 colonoscopy w/ bx (07/29/17) Prostate Biopsy with imaging guidance (11/25/14) Dr Hoang Family History Mother Neoplasm AGE 72, Colon cancer, LARGE SCALE ORGAN FAILURE Father , AGE 62 PANCREATIC CA Neoplasm Sister , PNEUMONIA AGE 49 CREST syndrome Colonic polyp Maternal Grandfather Neoplasm COLON CANCER Social History Smoking/Tobacco Use Status: Never Smoking risk assessment performed?: Yes Alcohol Intake: never Drug use: Never Substance use type: does not use Household members: other Details: self, and son Housing: house Number of Children: 2 number of grandchildren: 0 Communication Needs: Hard of Hearing Education Level: master's degree Do you need help understanding health information?: Never current occupation: Retired What is your relationship status?: Panel score (0-1 are the most socially isolated patients): 1 What type of physical activity do you participate in: other Details: active daily Duration: 60-90 minutes/day Frequency: 3-4 times per week Seatbelt use: always Water heater temp set <120 deg: Yes Working smoke detector in home: Yes Fire extinguisher in home: Yes Carbon monox detector in home: Yes Do you feel safe at home: Yes Do you feel safe in your relationship?: Yes Meds Allergies and Home Medications Allergies Allergy/AdvReac Type Severity Reaction Status Date / Time clindamycin AdvReac Unknown Hives Verified 01/02/24 11:36 paroxetine AdvReac Unknown active Verified 01/02/24 11:36 dreams dust AdvReac Unknown sneezing Uncoded 01/02/24 11:36 Home Medications ?Medication ?Instructions ?Recorded ?Confirmed ?Type diphenhydramine HCl 25 mg capsule 25 mg PO PRN 03/11/17 01/01/24 History (Benadryl) aspirin 81 mg tablet,delayed 81 mg PO DAILY 06/02/21 01/01/24 History release cholecalciferol (vitamin D3) 25 1,000 unit PO DAILY 01/30/22 01/02/24 History mcg (1,000 unit) capsule ezetimibe 10 mg tablet (Zetia) 10 mg PO DAILY #90 tabs 02/26/23 01/02/24 Rx rosuvastatin 10 mg tablet (Crestor) 10 mg PO DAILY #90 tabs 02/26/23 01/02/24 Rx finasteride 5 mg tablet See Rx Instructions .Route 11/19/23 01/02/24 Rx .COMPLEX #90 tabs doxycycline hyclate 50 mg tablet 50 mg PO DAILY 12/11/23 01/02/24 History tramadol 50 mg tablet 50 mg PO Q6H PRN pain #20 tabs 12/20/23 01/01/24 Rx Exam Const General: cooperative Neck Neck: supple Resp Effort & Inspection: normal respiratory effort Auscultation: clear to auscultation bilaterally Cardio Rate: regular rate Rhythm: regular rhythm GI Inspection: normal to inspection Palpation: soft Neuro General: patient alert, patient awake and patient oriented x3 Results Last Vital Signs Temp 36.4 C L 01/02/24 11:39 Pulse 55 L 01/02/24 11:39 Resp 16 01/02/24 11:39 BP 130/78 01/02/24 11:39 Pulse Ox 99 01/02/24 11:39 Time Spent Time spent with Patient: <40 minutes Time was spent: preparing to see the patient(eg.review tests), obtaining and/or reviewing separately otained hiistory and counseling the patient
[2024-01-02] MEDS: Lactated Ringers 1,000 ML 80 ML IV (12:01)
[2024-01-02] MEDS: ceFAZolin 2 GM/50 ML BAG IVPB (12:25)
[2024-01-02] MEDS: Omnipaque 300 MG/ML 50 ML BTL (13:00)
--- NOTE | 2024-01-02 14:17 | W.PM.DSUDISC ---
Date of service: 01/02/24 Time of Service: 14:17 Discharge Plan Disposition Patient Disposition: Home Discharge Details Reason For Visit: ureteroscopy Attending Provider: Ottoniel Mcintyre Primary Care Provider: Thaddeus Benson Home Meds and New Rx's Prescriptions: No Action aspirin 81 mg tablet,delayed release (DR/EC) 81 mg PO DAILY doxycycline hyclate 50 mg tablet 50 mg PO DAILY rosuvastatin [Crestor] 10 mg tablet 10 mg PO DAILY Qty: 90 3RF ezetimibe [Zetia] 10 mg tablet 10 mg PO DAILY Qty: 90 3RF diphenhydramine HCl [Benadryl] 25 MG capsule 25 mg PO PRN cholecalciferol (vitamin D3) 25 mcg (1,000 unit) capsule 1,000 unit PO DAILY finasteride 5 mg tablet See Rx Instructions .ROUTE .COMPLEX Qty: 90 3RF Dose Instruction: TAKE 1 TABLET BY MOUTH DAILY FOR PROSTATE Rx Instructions: TAKE 1 TABLET BY MOUTH DAILY FOR PROSTATE tramadol 50 mg tablet 50 mg PO Q6H PRN (Reason: pain) Qty: 20 0RF Discharge Instructions Additional Instructions: Need to strain urine Follow-up 1 week to have the stents removed (please tell my office that there are strings attached to the stents) Follow-up appointment with me in 6 to 12 weeks for a [id number] renal ultrasound Activity:: Activity as Tolerated Shower/Bathe:: 24 hours Diet:: As Tolerated Discharge Orders Discharge Orders: Discharge Order (Routine); Ordered 01/02/24 Ordered By: Ottoniel Mcintyre DS: Diagnosis Discharge Diagnosis (1) Bilateral ureteral calculi: Status: Acute
--- NOTE | 2024-01-02 14:20 | ROE_ITS ---
Date of service: 01/02/24 Time of Service: 14:20 Operative Note Operative Note DATE OF PROCEDURE: 01/02/24 PRE-OP DIAGNOSIS: Bilateral ureteral stones POST-OP DIAGNOSIS: same PROCEDURE: Cystoscopy, removed bilateral ureteral stents, bilateral retrograde pyelogram, bilateral flexible ureteroscopy, holmium laser lithotripsy of right ureteral stones, extraction of multiple bilateral ureteral and renal calculi insert bilateral ureteral stents, SURGEON: Ottoniel Mcintyre ANESTHESIA TYPE: Local By Surgeon and General LMA/ETT Refer to Anesthesia Record ESTIMATED BLOOD LOSS: 5 PATHOLOGY: other (stones for chemical analysis) COMPLICATIONS: None Patient was transported to: PACU Patient's condition: stable Implants: Bilateral 4.8 Egyptian by 22 to 30 cm ureteral stents with safety strings attached Indications: This is a 63-year-old gentleman with a known history of bilateral kidney stones. He had rather large stone burden, so we referred him to a tertiary care center for consideration of a percutaneous nephrolithotomy. He was not actually seen by the tertiary care center when he presented to the emergency department with right flank pain. His renal function had worsened. On CT scan, a large amount of his stones bilaterally had moved into the ureter. He was treated with urgent cystoscopy and stent placement. He had an initial cystoscopy with holmium laser lithotripsy of bilateral ureteral stones. He comes in now for repeat ureteroscopy, extraction of stone fragments and possible holmium laser lithotripsy Findings: Large stone burden remained on the right-treated with holmium laser lithotripsy and extracted Small stone fragments remained on the left extracted primarily Procedure Description: The patient was given preoperative antibiotics and brought to the operating room on 01/02/2024. After successful induction of general anesthesia, he was placed in the dorsal lithotomy position. His genitalia was prepped and draped sterilely. 2% Xylocaine jelly was instilled into the urethra to act as a local anesthetic. The 22 Egyptian rigid cystoscope was passed through the urethra into the bladder. The urethra and bladder were inspected with a 30 degree lens. The pendulous, bulbar and membranous urethra's appeared normal with no strictures. The prostatic urethra showed marked prostatic enlargement with trilobar hypertrophy. The bladder neck was entered and the bladder mucosa was inspected. Both ureteral stents were visualized. I began with the right stent and grasped it with alligator forceps and brought the stent out to the level of the urethral meatus. I then passed a guidewire through the lumen of the stent and we remove the stent leaving the wire in place. A dual-lumen catheter was advanced over the wire and a retrograde pyelogram was obtained by injecting Omnipaque through the second port of the dual-lumen catheter. Some significant stone burden was found in the proximal ureter. I then passed a second wire through the dual-lumen catheter and removed the c atheter. I passed a ureteral access sheath over one of the wires. We left the other wire in place as a safety wire. I then passed the flexible ureteroscope through the lumen of the access sheath. In the proximal ureter, we visualized stone that was too large to grasp and a stone basket. We then treated the stone with a 272 ?m holmium laser fiber. The stone fragments that were developed were then extracted using a 0 tip stone basket. As the ureteral stones were cleared, we were able to move up into the renal pelvis. Again some large stone burden was identified. The stone was treated wi th a 272 ?m holmium laser fiber and the fragments were removed. Other smaller fragments did not require treatment with the laser and they were extracted primarily. At the completion of the procedure, there did appear to be some clot remaining in the renal pelvis, but I did not see any large stone burden. I passed a 4.8 Egyptian variable length stent over the safety wire. We position the stent with the proximal end curled in the renal pelvis and the distal end curled within the bladder. The safety string was left in place on the end of the stent and brought through the urethral meatus. We then performed a similar procedure on the left side. Again, with cystoscopic guidance, we visualized the left ureteral stent and grasped it in an alligator forceps. The stent was brought to the urethral meatus. A wire was advanced through the lumen of the stent and the stent was removed. A dual-lumen catheter was then advanced over the wire and a retrograde pyelogram was obtained. I did not visualize any significant stone in the ureter, but I did not see filling defect in the lower pole calyx. I then passed a second wire through the dual-lumen catheter and remove the catheter. We passed a ureteral access sheath over the working wire and left the safety wire in place. We passed the flexible ureteroscope through the access sheath. No significant stone burden was seen along the ureter, but a large stone fragment was seen in the lower pole calyx. This fragment was extracted using a 0 tip stone basket. Multiple other smaller fragments in various calyces and in the renal pelvis were extracted as well. We did not require holmium laser lithotripsy on the patient's left side. At the completion of the procedure, the ureteroscope and access sheath were removed. A 4.8 Egyptian variable length stent was advanced over the safety wire. The stent was positioned with the proximal end curled in the renal pelvis and the distal end curled in the bladder. The safety string was left in place and brought through the urethra. Both safety strings were anchored to the dorsum of the patient's penis using a Steri-Strip. The proximal positioning of the stent was confirmed fluoroscopically. Repeat cystoscopy was performed to confirm the bladder location of each stent. A few clots within the bladder were evacuated using a Angela syringe. The patient tolerated this procedure well with no complications.
--- NOTE | 2024-01-02 14:32 | DI.RAD_ITS ---
Exam(s) XR RETROGRADE IN OR EXAM: XR RETROGRADE IN OR CLINICAL HISTORY: Hydronephrosis concurrent with and due to calculi TECHNIQUE: 2D and realtime digital imaging was performed. CONTRAST MATERIAL: Refer to procedure report. COMPARISON: XA XR RETROGRADE IN OR from 12/20/[address] RENAL COLIC WO from 12/20/2023 XA XR RETROGRADE IN OR from 12/26/2023 FINDINGS: Fluoroscopy was provided for Dr. Mcintyre during the evaluation of the renal collecting system. Please refer to the procedure report for complete details. Kar=22 mGy IMPRESSION: RADIATION DOSE DELIVERED: 0.0 0.0 0
--- NOTE | 2024-01-02 14:57 | W.ANESPOSTOP ---
Postoperative Evaluation Date, Time and Location Date Performed: 01/02/24 Time Performed: 14:57 Patient Location: PACU Vital Signs Most Recent Imported Vital Signs: Most Recent Vital Signs Temp Pulse Resp BP Pulse Ox 36.1 C L 45 L 12 111/69 100 01/02/24 14:50 01/02/24 14:56 01/02/24 14:56 01/02/24 14:56 01/02/24 14:56 Pain Score Most Recent Pain Score: Most Recent Pain Score Pain Level 2 01/02/24 14:50 Assessment Mental Status: Awake (Alert & Oriented to Patient Baseline) Airway and Respiratory Function: Patent airway with normal (patient baseline) respiratory exam Cardiovascular Function: Hemodynamically Stable Hydration Status: Adequately Hydrated Nausea & Vomiting: No Nausea or Vomiting Pain: Pain is tolerable per patient Peripheral Nerve Block: Patient did not receive a nerve block
[2024-01-02] MEDS: Phenazopyridine 200 MG TAB PO (15:14)
[2024-01-13 14:04] LABS: Source: Kidney
== END 2024-01-02 17:20 | disposition home or self-care (01) ==
PROVIDERS: PCP Family Medicine; Visit Provider Urology
PROC: (CPT 52356; principal; 2024-01-02 13:00)
DX: N20.1 Calculus of ureter (principal); K21.9 Gastro-esophageal reflux disease without esophagitis; G47.33 Obstructive sleep apnea (adult) (pediatric); E55.9 Vitamin D deficiency, unspecified; E78.2 Mixed hyperlipidemia; I25.10 Atherosclerotic heart disease of native coronary artery without angina pectoris
CPT/HCPCS: 52356; 52332; 52352; 74420; 82365; J0690; J1100; J1885; J2405; J2704; J3010; Q9967

== ENCOUNTER 2024-01-17 06:55 | Emergency (ER) | payer BC, SELFPAY ==
[2024-01-17 06:59] VITALS: BP 137/75; PULSE 61; RESP 12; TEMP 36.5; O2SAT 97
[2024-01-17 07:19] LABS: Bilirubin Negative (Negative); Blood Large (Negative); Clarity Clear (Clear); Glucose Negative (Negative); Ketones Negative (Negative); Leukocyte Esterase Small (Negative); Nitrite Negative (Negative); Urobilinogen 0.2 mg/dL (Up to 0.2)
[2024-01-17 07:31] LABS: Abs Immature Grans 0.02 10^3/uL (0.0-0.06); Absolute Basophil Count 0.03 10^3/uL (0.0-0.2); Absolute Eosinophil Count 0.23 10^3/uL (0.0-0.7); Absolute Lymphocyte Count 1.25 10^3/uL (1.2-3.4); Absolute Monocyte Count 0.41 10^3/uL (0.1-0.8); Basophils % 0.6 %; HCT 39.3 % (40.0-50.0); HGB 13.5 g/dL (13.5-17.5); Immature Grans % 0.4 %; Lymphocytes % 26.9 %; MCH 32.2 pg (27.0-33.0); MCHC 34.4 % (32.0-36.0); MCV 94 fL (80-95); MPV 8.4 fL (8.0-11.0); Monocytes % 8.8 %; Neutrophils % 58.3 %; Platelet Count 224 10^3/uL (130-400); RBC 4.19 10^6/uL (4.36-5.78); RDW 13.2 % (11.8-14.1); RDW-SD 45.1 fL; WBC 4.64 10^3/uL (4.4-10.8)
[2024-01-17] MEDS: Lactated Ringers 500 ML 1000 ML IV (07:42)
[2024-01-17] MEDS: Normal Saline Flush 10 ML SYR IVP (07:42)
[2024-01-17 07:45] LABS: Bacteria Negative HPF (Negative); Casts Negative LPF (Negative); Crystals Negative HPF (Negative); Epithelial Cells Rare HPF (Negative); Mucus Trace (Negative); Other Cells Negative (Negative); RBC 20-50 HPF (0-2)
[2024-01-17 07:47] LABS: ALT 45 U/L (16-63); AST 26 U/L (15-37); Albumin 3.6 g/dL (3.4-5.0); Alkaline Phosphatase 67 U/L (46-116); Anion Gap 6.8 mmol/L (3-11); BUN 14 mg/dL (7-18); Bilirubin, Total 0.66 mg/dL (0.2-1.0); CO2 28.2 mmol/L (21.0-32.0); CREATININE 1.1 mg/dL (0.70-1.30); Chloride 103 mmol/L (98-107); Glucose 102 mg/dL (74-106); Lipase 66 U/L (16-77); Potassium 3.6 mmol/L (3.5-5.1); Sodium 138 mmol/L (136-145); Total Protein 6.7 g/dL (6.4-8.2)
[2024-01-17 07:48] LABS: C & S Indicated? Yes
[2024-01-17 07:53] LABS: Calcium 9.1 mg/dL (8.5-10.1)
--- NOTE | 2024-01-17 08:02 | ED.GENADUL_ITS ---
Discharge Plan Disposition Patient Disposition: Home Condition: Stable Discharge Details Clinical Impression: Calculus of right ureter, Abdominal pain, acute, left lower quadrant, Constipation, Hydronephrosis, right, Hydronephrosis, left, Bladder stones, Diverticulosis, Hematuria Primary Care Provider: Thaddeus Benson ED Provider: Mervin Mistry Home Meds and New Rx's Prescriptions: New tamsulosin [Flomax] 0.4 mg capsule 0.4 mg PO DAILY Qty: 14 0RF Continued aspirin 81 mg tablet,delayed release (DR/EC) 81 mg PO DAILY doxycycline hyclate 50 mg tablet 50 mg PO DAILY rosuvastatin [Crestor] 10 mg tablet 10 mg PO DAILY Qty: 90 3RF ezetimibe [Zetia] 10 mg tablet 10 mg PO DAILY Qty: 90 3RF diphenhydramine HCl [Benadryl] 25 MG capsule 25 mg PO PRN cholecalciferol (vitamin D3) 25 mcg (1,000 unit) capsule 1,000 unit PO DAILY finasteride 5 mg tablet See Rx Instructions .ROUTE .COMPLEX Qty: 90 3RF Dose Instruction: TAKE 1 TABLET BY MOUTH DAILY FOR PROSTATE Rx Instructions: TAKE 1 TABLET BY MOUTH DAILY FOR PROSTATE tramadol 50 mg tablet 50 mg PO Q6H PRN (Reason: pain) Qty: 20 0RF Discharge Instructions Instructions: Diverticulosis, Kidney Stone Diet, Constipation, Adult ED Additional Instructions: Please follow-up with urology next week as recommended by Dr. Mcintyre. Return to the ER immediately for any worsening or new concerning symptoms. Referrals: Ottnoiel Mcintyre MD [ [facility] STAFF PHYSICIAN] - Discharge Data Discharge Date/Time-TO BE ENTERED AT DEPARTURE: 01/17/24 10:28 HPI General Mode of arrival: ambulatory . Date/Time Provider Initiated Documentation: 01/17/24 07:10 . Limitations to Documentation: no limitations . Information obtained by: patient . HPI Narrative: 63-year-old male with multiple medical problems including history of recent bilateral ureteral calculi treated with lithotripsy and stenting, status post stent removal about a week ago, here today with new onset left lower quadrant abdominal pain. Pain started yesterday evening and has persisted. Pain is described as a dull ache and at times more severe and sharp. Pain feels different than when he had his kidney stones. He does note some urinary urgency yesterday. No associated fever. No dysuria. Patient does have remote history of bowel perforation, now status post partial colectomy with reversal of ostomy. Related Data Home Medications ?Medication ?Instructions ?Recorded ?Confirmed diphenhydramine HCl 25 mg capsule 25 mg PO PRN 03/11/17 01/20/24 (Benadryl) aspirin 81 mg tablet,delayed 81 mg PO DAILY 06/02/21 01/20/24 release cholecalciferol (vitamin D3) 25 1,000 unit PO DAILY 01/30/22 01/20/24 mcg (1,000 unit) capsule ezetimibe 10 mg tablet (Zetia) 10 mg PO DAILY #90 tabs 02/26/23 01/20/24 rosuvastatin 10 mg tablet (Crestor) 10 mg PO DAILY #90 tabs 02/26/23 01/20/24 finasteride 5 mg tablet See Rx Instructions .Route 11/19/23 01/20/24 .COMPLEX #90 tabs doxycycline hyclate 50 mg tablet 50 mg PO DAILY 12/11/23 01/20/24 tramadol 50 mg tablet 50 mg PO Q6H PRN pain #20 tabs 12/20/23 01/20/24 tamsulosin 0.4 mg capsule (Flomax) 0.4 mg PO DAILY #14 caps 01/17/24 01/20/24 Previous Rx's ?Medication ?Instructions ?Recorded ezetimibe 10 mg tablet (Zetia) 10 mg PO DAILY #90 tabs 02/26/23 rosuvastatin 10 mg tablet (Crestor) 10 mg PO DAILY #90 tabs 02/26/23 finasteride 5 mg tablet See Rx Instructions .Route 11/19/23 .COMPLEX #90 tabs tramadol 50 mg tablet 50 mg PO Q6H PRN pain #20 tabs 12/20/23 tamsulosin 0.4 mg capsule (Flomax) 0.4 mg PO DAILY #14 caps 01/17/24 Allergies Allergy/AdvReac Type Severity Reaction Status Date / Time clindamycin AdvReac Unknown Hives Verified 01/20/24 09:35 paroxetine AdvReac Unknown active Verified 01/20/24 09:35 dreams dust AdvReac Unknown sneezing Uncoded 01/20/24 09:35 General Stated Complaint: Abd Prob BETINA: 3 Review of Systems All systems reviewed & are unremarkable except as noted in HPI and below Constitutional Constitutional: Denies fever(s) Gastrointestinal Gastrointestinal: Reports abdominal pain, Denies melena, Denies hematochezia and Denies change in bowel habits Genitourinary Genitourinary: Reports as per HPI Exam Const General: cooperative and no acute distress HENMT Mouth: moist mucous membranes Eyes Conjunctivae: normal conjunctivae Sclera: normal sclerae Neck Neck: trachea midline and supple Resp Auscultation: clear to auscultation bilaterally, no rales, no rhonchi and no wheezes Cardio Jugular venous pressure: no JVD Rate: regular rate and not tachycardic Rhythm: regular rhythm GI Inspection: non-distended Palpation: soft, not firm, guarding in the LLQ, no masses, no pulsatile masses, not rigid and tender in the LLQ Auscultation: normal bowel sounds Back/Spine/Pelvis Back: No erythema Other: no cva tenderness Skin General skin exam: no rashes or lesions noted Neuro General: patient alert, patient awake, patient oriented x3 and tone normal Extrem General: no edema Psych Appearance: grossly normal Mental Status: mental status grossly normal Course Vital Signs Vital signs: Vital Signs Temperature 36.5 C 01/17/24 06:59 Pulse 61 01/17/24 06:59 Respiratory Rate 12 01/17/24 06:59 Blood Pressure 137/75 01/17/24 06:59 Pulse Oximetry 97 01/17/24 06:59 Temperature 36.5 C 01/17/24 06:59 Temperature Source Oral 01/17/24 06:59 Pulse 61 01/17/24 06:59 Respiratory Rate 12 01/17/24 06:59 Respiratory Effort Normal, Non-Labored 01/17/24 07:02 Blood Pressure 137/75 01/17/24 06:59 Blood Pressure Position Sitting 01/17/24 06:59 Pulse Oximetry 97 01/17/24 06:59 Oxygen Delivery Method Room Air 01/17/24 06:59 Oxygen Flow Rate 0 01/17/24 06:59 Pain Level 2 01/17/24 07:02 Lab/Test Results Lab/Test Results: 01/17/24 07:08 Urine - Reflex from Ua Urine Culture - Pending Laboratory Tests Range/Units 01/17/24 01/17/24 01/17/24 07:08 07:12 07:15 WBC (4.4-10.8) 10^3/uL RBC (4.36-5.78) 10^6/uL Hgb (13.5-17.5) g/dL Hct (40.0-50.0) % MCV (80-95) fL MCH (27.0-33.0) pg MCHC (32.0-36.0) % RDW (11.8-14.1) % Plt Count (130-400) 10^3/uL MPV (8.0-11.0) fL Immature Gran % % Neutrophils % % Lymphocytes % % Monocytes % % Eosinophils % % Basophils % % Nucleated RBC % (0.0-0.3) % Absolute Neutrophils (1.2-6.7) 10^3/uL Absolute Lymphocytes (1.2-3.4) 10^3/uL Absolute Monocytes (0.1-0.8) 10^3/uL Absolute Eosinophils (0.0-0.7) 10^3/uL Absolute Basophils (0.0-0.2) 10^3/uL Sodium (136-145) mmol/L Potassium (3.5-5.1) mmol/L Chloride (98-107) mmol/L Carbon Dioxide (21.0-32.0) mmol/L Anion Gap (3-11) mmol/L BUN (7-18) mg/dL Creatinine (0.70-1.30) mg/dL Est GFR (CKD-EPI 2020) (mL/min/1.73m2) Glucose (74-106) mg/dL Calcium (8.5-10.1) mg/dL Total Bilirubin (0.2-1.0) mg/dL AST (15-37) U/L ALT (16-63) U/L Alkaline Phosphatase (46-116) U/L Total Protein (6.4-8.2) g/dL Albumin (3.4-5.0) g/dL Lipase Cancelled Urine Color (Yellow) Yellow Cancelled Urine Clarity (Clear) Clear Cancelled Urine pH (5-8) 7.0 Cancelled Ur Specific [place] (1.005-1.025) 1.020 Cancelled Urine Protein (Neg-Trace) mg/dL Negative Cancelled Urine Ketones (Negative) mg/dL Negative Cancelled Urine Blood (Negative) Large H Cancelled Urine Nitrite (Negative) Negative Cancelled Urine Bilirubin (Negative) Negative Cancelled Urine Urobilinogen (Up to 0.2) mg/dL 0.2 Cancelled Ur Leukocyte Esterase (Negative) Small H Cancelled Urine RBC (0-2) HPF 20-50 H Urine WBC (0-5) HPF 3-5 Ur Epithelial Cells (Negative) HPF Rare Urine Crystals (Negative) HPF Negative Urine Bacteria (Negative) HPF Negative Urine Casts (Negative) LPF Negative Urine Mucus (Negative) Trace Urine Other (Negative) Negative Ur Culture Indicated? Yes Urine Glucose (Negative) mg/dL Negative Cancelled Range/Units 01/17/24 07:25 WBC (4.4-10.8) 10^3/uL 4.64 RBC (4.36-5.78) 10^6/uL 4.19 L Hgb (13.5-17.5) g/dL 13.5 Hct (40.0-50.0) % 39.3 L MCV (80-95) fL 94 MCH (27.0-33.0) pg 32.2 MCHC (32.0-36.0) % 34.4 RDW (11.8-14.1) % 13.2 Plt Count (130-400) 10^3/uL 224 MPV (8.0-11.0) fL 8.4 Immature Gran % % 0.4 Neutrophils % % 58.3 Lymphocytes % % 26.9 Monocytes % % 8.8 Eosinophils % % 5.0 Basophils % % 0.6 Nucleated RBC % (0.0-0.3) % 0.0 Absolute Neutrophils (1.2-6.7) 10^3/uL 2.70 Absolute Lymphocytes (1.2-3.4) 10^3/uL 1.25 Absolute Monocytes (0.1-0.8) 10^3/uL 0.41 Absolute Eosinophils (0.0-0.7) 10^3/uL 0.23 Absolute Basophils (0.0-0.2) 10^3/uL 0.03 Sodium (136-145) mmol/L 138 Potassium (3.5-5.1) mmol/L 3.6 Chloride (98-107) mmol/L 103 Carbon Dioxide (21.0-32.0) mmol/L 28.2 Anion Gap (3-11) mmol/L 6.8 BUN (7-18) mg/dL 14 Creatinine (0.70-1.30) mg/dL 1.1 Est GFR (CKD-EPI 2020) (mL/min/1.73m2) 75.90 Glucose (74-106) mg/dL 102 Calcium (8.5-10.1) mg/dL 9.1 Total Bilirubin (0.2-1.0) mg/dL 0.66 AST (15-37) U/L 26 ALT (16-63) U/L 45 Alkaline Phosphatase (46-116) U/L 67 Total Protein (6.4-8.2) g/dL 6.7 Albumin (3.4-5.0) g/dL 3.6 Lipase 66 Urine Color (Yellow) Urine Clarity (Clear) Urine pH (5-8) Ur Specific [place] (1.005-1.025) Urine Protein (Neg-Trace) mg/dL Urine Ketones (Negative) mg/dL Urine Blood (Negative) Urine Nitrite (Negative) Urine Bilirubin (Negative) Urine Urobilinogen (Up to 0.2) mg/dL Ur Leukocyte Esterase (Negative) Urine RBC (0-2) HPF Urine WBC (0-5) HPF Ur Epithelial Cells (Negative) HPF Urine Crystals (Negative) HPF Urine Bacteria (Negative) HPF Urine Casts (Negative) LPF Urine Mucus (Negative) Urine Other (Negative) Ur Culture Indicated? Urine Glucose (Negative) mg/dL Medical Decision Making 800 -- 63yo male with multimedical problems including remote history of bowel perforation requiring partial resection, colostomy, status post reversal, recent bilateral ureteral stones requiring lithotripsy and stent placement, now status post stent removal for the past week, developed left lower quadrant abdominal pain last night that has persisted. Patient is hemodynamically stable. He does have focal tenderness with guarding of the left lower quadrant. No CVA tenderness. Concern for ureteral injury versus diverticulitis versus less likely recurrent renal stone. Plan to obtain CT of the abdomen and pelvis to assess for acute surgical pathology. 935 --labs reviewed: No leukocytosis, large blood in urine with 20-50 RBCs, 3-[address] abdomen pelvis was interpreted by radiology: 1. Since the intraoperative examination from 01/02/2024 there has been removal of the bilateral nep hroureteral stents. 2. On the right, there is marked hydronephrosis and moderate hydroureter with at least 3 stones seen in the mid right ureter. 3. On the left, there is moderate hydronephrosis and mild hydroureter. No ureteral stones are present. 4. There is mild enhancement of the wall of the ureters and infection should be considered. 5. Multiple urinary bladder stones. 6. Colonic diverticulosis without evidence of acute diverticulitis. 7. Moderate amount of stool in the colon suggesting constipation. Plan to consult urology. 1004 --I spoke with Dr. Mcintyre, discussed ED presentation course, he reviewed the CT findings and labs, he recommends discharge with Nolasco catheter. If patient not willing to tolerate Nolasco, he recommends discharge on Flomax. He would like to see the patient next week in clinic for reassessment. He does not recommend additional antibiotics at this time. All results were discussed with the patient. Urology recommendations discussed with the patient. Plan for discharge with outpatient follow-up. Questions were addressed. Usual and customary discharge instructions were reviewed. Lab Data Lab results reviewed: Yes I reviewed the patient's lab results. Labs: 01/17/24 07:08 Urine - Reflex from Ua Urine Culture - Pending Laboratory Tests Range/Units 01/17/24 01/17/24 01/17/24 07:08 07:12 07:15 WBC (4.4-10.8) 10^3/uL RBC (4.36-5.78) 10^6/uL Hgb (13.5-17.5) g/dL Hct (40.0-50.0) % MCV (80-95) fL MCH (27.0-33.0) pg MCHC (32.0-36.0) % RDW (11.8-14.1) % Plt Count (130-400) 10^3/uL MPV (8.0-11.0) fL Immature Gran % % Neutrophils % % Lymphocytes % % Monocytes % % Eosinophils % % Basophils % % Nucleated RBC % (0.0-0.3) % Absolute Neutrophils (1.2-6.7) 10^3/uL Absolute Lymphocytes (1.2-3.4) 10^3/uL Absolute Monocytes (0.1-0.8) 10^3/uL Absolute Eosinophils (0.0-0.7) 10^3/uL Absolute Basophils (0.0-0.2) 10^3/uL Sodium (136-145) mmol/L Potassium (3.5-5.1) mmol/L Chloride (98-107) mmol/L Carbon Dioxide (21.0-32.0) mmol/L Anion Gap (3-11) mmol/L BUN (7-18) mg/dL Creatinine (0.70-1.30) mg/dL Est GFR (CKD-EPI 2020) (mL/min/1.73m2) Glucose (74-106) mg/dL Calcium (8.5-10.1) mg/dL Total Bilirubin (0.2-1.0) mg/dL AST (15-37) U/L ALT (16-63) U/L Alkaline Phosphatase (46-116) U/L Total Protein (6.4-8.2) g/dL Albumin (3.4-5.0) g/dL Lipase Cancelled Urine Color (Yellow) Yellow Cancelled Urine Clarity (Clear) Clear Cancelled Urine pH (5-8) 7.0 Cancelled Ur Specific [place] (1.005-1.025) 1.020 Cancelled Urine Protein (Neg-Trace) mg/dL Negative Cancelled Urine Ketones (Negative) mg/dL Negative Cancelled Urine Blood (Negative) Large H Cancelled Urine Nitrite (Negative) Negative Cancelled Urine Bilirubin (Negative) Negative Cancelled Urine Urobilinogen (Up to 0.2) mg/dL 0.2 Cancelled Ur Leukocyte Esterase (Negative) Small H Cancelled Urine RBC (0-2) HPF 20-50 H Urine WBC (0-5) HPF 3-5 Ur Epithelial Cells (Negative) HPF Rare Urine Crystals (Negative) HPF Negative Urine Bacteria (Negative) HPF Negative Urine Casts (Negative) LPF Negative Urine Mucus (Negative) Trace Urine Other (Negative) Negative Ur Culture Indicated? Yes Urine Glucose (Negative) mg/dL Negative Cancelled Range/Units 01/17/24 07:25 WBC (4.4-10.8) 10^3/uL 4.64 RBC (4.36-5.78) 10^6/uL 4.19 L Hgb (13.5-17.5) g/dL 13.5 Hct (40.0-50.0) % 39.3 L MCV (80-95) fL 94 MCH (27.0-33.0) pg 32.2 MCHC (32.0-36.0) % 34.4 RDW (11.8-14.1) % 13.2 Plt Count (130-400) 10^3/uL 224 MPV (8.0-11.0) fL 8.4 Immature Gran % % 0.4 Neutrophils % % 58.3 Lymphocytes % % 26.9 Monocytes % % 8.8 Eosinophils % % 5.0 Basophils % % 0.6 Nucleated RBC % (0.0-0.3) % 0.0 Absolute Neutrophils (1.2-6.7) 10^3/uL 2.70 Absolute Lymphocytes (1.2-3.4) 10^3/uL 1.25 Absolute Monocytes (0.1-0.8) 10^3/uL 0.41 Absolute Eosinophils (0.0-0.7) 10^3/uL 0.23 Absolute Basophils (0.0-0.2) 10^3/uL 0.03 Sodium (136-145) mmol/L 138 Potassium (3.5-5.1) mmol/L 3.6 Chloride (98-107) mmol/L 103 Carbon Dioxide (21.0-32.0) mmol/L 28.2 Anion Gap (3-11) mmol/L 6.8 BUN (7-18) mg/dL 14 Creatinine (0.70-1.30) mg/dL 1.1 Est GFR (CKD-EPI 2020) (mL/min/1.73m2) 75.90 Glucose (74-106) mg/dL 102 Calcium (8.5-10.1) mg/dL 9.1 Total Bilirubin (0.2-1.0) mg/dL 0.66 AST (15-37) U/L 26 ALT (16-63) U/L 45 Alkaline Phosphatase (46-116) U/L 67 Total Protein (6.4-8.2) g/dL 6.7 Albumin (3.4-5.0) g/dL 3.6 Lipase 66 Urine Color (Yellow) Urine Clarity (Clear) Urine pH (5-8) Ur Specific [place] (1.005-1.025) Urine Protein (Neg-Trace) mg/dL Urine Ketones (Negative) mg/dL Urine Blood (Negative) Urine Nitrite (Negative) Urine Bilirubin (Negative) Urine Urobilinogen (Up to 0.2) mg/dL Ur Leukocyte Esterase (Negative) Urine RBC (0-2) HPF Urine WBC (0-5) HPF Ur Epithelial Cells (Negative) HPF Urine Crystals (Negative) HPF Urine Bacteria (Negative) HPF Urine Casts (Negative) LPF Urine Mucus (Negative) Urine Other (Negative) Ur Culture Indicated? Urine Glucose (Negative) mg/dL Quality:SDOH Health Related Social Needs: No Data to Display PFSH All Active Problems (Updated 01/17/24 @ 10:08 by Mervin Mistry MD) Hematuria (Acute) Diverticulosis (Acute) Bladder stones (Acute) Hydronephrosis, left (Acute) Hydronephrosis, right (Acute) Constipation (Acute) Abdominal pain, acute, left lower quadrant (Acute) Calculus of right ureter (Acute) Bilateral ureteral calculi (Acute) Hydronephrosis concurrent with and due to calculi of kidney and ureter (Acute) Endogenous hyperlipidemia (Acute) Lymph node disorder (Acute) Impacted cerumen (Acute) Cementosis (Acute) Ganglion cyst (Acute) Tinea manus (Acute) Agoraphobia without history of panic disorder (Acute 04/22/86) began during grad school; NORTRIPTYLINE EFFECTIVE, WORSE WITH EXCESS CAFFEINE Antibiotic long-term use (Acute 10/04/15) per Dr Theo Daley for possible Lyme related Benign neoplasm of large intestine (Acute 03/02/09) TUBULAR ADENOMA 2008, Hepatic Flexure (hartong) ED (erectile dysfunction) (Acute 10/27/13) Elevated prostate specific antigen [PSA] (Acute 01/28/17) Dr. Hoang neg bx, updated PSA favoirable suggesing previous related to inflammation/inf, Free PSA indeterminate Extrinsic asthma, unspecified (Acute 05/12/12) ? 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 Joel Hoang Kidney stone (Acute 08/20/10) FOUND ON W/U ABD PAIN 08/2010 [facility] COD; POS FH (SISTERS, FATHER) Migraine aura without headache (Acute 09/25/17) Mood disturbance (Acute 06/05/16) decr energy due to Lyme meds Obstructive sleep apnea syndrome (Acute 09/14/11) DENTAL APPLIANCE AND FLONASE, LAST SLEEP STUDY [facility] [place]201112/[place]/18 polysomnogram at [facility] [place] Med. CPAP recommended Sleep Study 09/21/17 [facility] 08/22/18 CPAP started. [facility] Sleep Medicine PIN (prostatic intraepithelial neoplasia) (Acute 11/22/14) in one of 10 bx specimens, [place] Paresthesias (Acute 03/28/15) NUMBNESS lasting 40 sec to 4 min, L arm, L leg, 3 episodes since d/c [facility] [place] Seasonal allergic rhinitis (Acute 09/14/11) Tinnitus (Acute 01/18/15) MRI 12/04 normal Vitamin D deficiency (Acute 01/18/15) Mixed hyperlipidemia (Acute 02/25/18) Arteriosclerosis of coronary artery (Acute ~01/2016) Tick bite (Acute 03/31/13) Pruritic rash (Acute 11/19/16) Paresthesia of right upper limb (Acute 10/27/13) Diverticulosis of colon without diverticulitis (Acute 09/14/11) Diverticulitis of intestine (Acute 01/18/15) Neuralgia (Acute 01/18/15) Plantar fasciitis, bilateral (Acute) Neuropathy, intercostal nerve (Acute) Shortness of breath (Acute) Coronary artery disease (Chronic) Medical History Bilateral kidney stones Kidney stones History of tick-borne disease 9 day hospitalization, fdc antibiotic treatment Mass of left parotid gland Bladder stone Giardiasis Left ureteral stone Bacteremia due to Escherichia coli (01/18/15) Atrioventricular block, complete Pruritic rash (11/19/16) Right palm , responds to Epsom salts, transiently to steroid cream Palmar erythema (08/07/16) Right palm , responds to Epsom salts, transiently to steroid cream Aortic aneurysm (12/02/14) 5.14 cm ascending aorta CTA chest and abdomen w/out contrast Surgical History Hx of cystoscopy kidney stone removal; June 2020 Hx of colectomy hx of ruptured colon with colostomy and reversal. 18 inches less of intestine per pt. History of laryngoscopy (~12/21/14) H/O colonoscopy (~04/26/14) w/ bx History of temporal artery biopsy (~11/27/14) bilaterally H/O vasectomy History of wisdom tooth extraction S/P tonsillectomy (~1971) H/O elbow surgery (~1986) Hx of colostomy (~08/2010) [place], perforated diverticulitis Re-Anastomosis 11/2010 s/p valve sparing root replacement [place] [facility] [place]13/15 colonoscopy w/ bx (07/29/17) Prostate Biopsy with imaging guidance (11/25/14) Dr Hoang Family History Mother Neoplasm AGE 72, Colon cancer, LARGE SCALE ORGAN FAILURE Father , AGE 62 PANCREATIC CA Neoplasm Sister , PNEUMONIA AGE 49 CREST syndrome Colonic polyp Maternal Grandfather Neoplasm COLON CANCER Social History Smoking/Tobacco Use Status: Never Smoking risk assessment performed?: Yes Alcohol Intake: never Drug use: Never Substance use type: does not use Household members: other Details: self, and son Housing: house Number of Children: 2 number of grandchildren: 0 Communication Needs: Hard of Hearing Education Level: master's degree Do you need help understanding health information?: Never current occupation: Retired What is your relationship status?: Panel score (0-1 are the most socially isolated patients): 1 What type of physical activity do you participate in: other Details: active daily Duration: 60-90 minutes/day Frequency: 3-4 times per week Seatbelt use: always Water heater temp set <120 deg: Yes Working smoke detector in home: Yes Fire extinguisher in home: Yes Carbon monox detector in home: Yes Do you feel safe at home: Yes Do you feel safe in your relationship?: Yes
[2024-01-17] MEDS: Omnipaque 350 MG/ML 100 ML BTL 85 ML IJ (08:30)
[2024-01-17] MEDS: Normal Saline - Diluent 50 ML VIAL IJ (08:32)
--- NOTE | 2024-01-17 08:35 | DI.CT_ITS ---
Exam(s) CT ABDOMEN PELVIS W EXAM: CT ABDOMEN PELVIS W CLINICAL HISTORY: llq pain; remote bowel resect, recent uro stent TECHNIQUE: Imaging Protocol: Axial computed tomography images with coronal and sagittal reformatted images were created and reviewed. CONTRAST MATERIAL: Intravenous: Omnipaque 350 Contrast volume:85 mL Oral: yes / no COMPARISON: CT CT ABDOMEN PELVIS WO/W from 03/09/[address] ABDOMEN PELVIS WO from 09/24/[address] RENAL COLIC WO from 12/20/2023 XA XR RETROGRADE IN OR from 01/02/2024 FINDINGS: The examination is limited due to patient motion artifact. ABDOMEN: Lung Bases: Normal where visualized. Liver: Normal density. There is stable tiny cysts in the caudal aspect of the liver. No follow-up is recommended. No suspicious hepatic masses are seen. Portal, Superior Mesenteric, and Splenic Veins: Unremarkable. Gallbladder and Biliary Tract: No radiodense calculus or dilation. Pancreas: Normal density, no abnormal calcifications or inflammatory process. Spleen: Normal. Adrenals: No masses seen. Kidneys: Normal size, contour and axis. There is bilateral nephrolithiasis. There are 3 stones seen in the mid right ureter. The largest measures 7 mm in length. (Series 5, image 30). There is sever e hydronephrosis and moderate hydroureter of the right ureter. There is mild enhancement of the wall of the ureter. There is mild hydronephrosis of the left ureter. No stones are seen within the left ureter. Simple renal cysts are seen. No follow-up is recommended. Abdominal Aorta: Abdominal portion non-dilated. Atherosclerotic calcification is present. Bowel: Postsurgical changes are seen at the rectosigmoid junction. There is diverticulosis of the co lena without evidence of acute diverticulitis. There is a moderate amount of stool throughout the col on suggesting constipation. No bowel wall thickening or obstruction is present. The stomach is inco mpletely distended limiting evaluation. Appendix is unremarkable. Peritoneal Cavity: No ascites, collection or mesenteric inflammatory response. No free air. Lymph Nodes: Within normal limits. Bones: Within normal limits for the patient's age. Soft Tissues: There is a fat containing left inguinal hernia. PELVIS: Bladder: There are several urinary bladder stones. The bladder wall is smooth and not thickened. Reproductive Organs: There is moderate enlargement of the prostate gland. Lymph Nodes: Within normal limits. Bones: Within normal limits for the patient's age. IMPRESSION: 1. Since the intraoperative examination from 01/02/2024 there has been removal of the bilateral nephro ureteral stents. 2. On the right, there is marked hydronephrosis and moderate hydroureter with at least 3 stones seen in the mid right ureter. 3. On the left, there is moderate hydronephrosis and mild hydroureter. No ureteral stones are presen t. 4. There is mild enhancement of the wall of the ureters and infection should be considered. 5. Multiple urinary bladder stones. 6. Colonic diverticulosis without evidence of acute diverticulitis. 7. Moderate amount of stool in the colon suggesting constipation. RADIATION DOSE DELIVERED: 508.74mGy.cm Total DLP DATA REPOSITORY: All CT scans at this facility are submitted to the National Radiology Data Registry (NRDR) Dose Index Registry (DIR) with the [employer] (ACR). RADIATION OPTIMIZATION: All CT scans at this facility use at least one of these dose optimization te chniques: automated exposure control; mA and/or kV adjustment per patient size (includes targeted exa ms where dose is matched to clinical indication); or iterative reconstruction.
[2024-01-17] MEDS: Ibuprofen 400 MG TAB PO (10:26)
[2024-01-17] MEDS: Tamsulosin 0.4 MG CAPCR PO (10:26)
--- NOTE | 2024-01-19 08:24 | NUR.NOTE ---
Nursing Note: Accessed chart to look up whether or not on antibiotic for urine culture result.
== END 2024-01-17 10:28 | disposition home or self-care (01) ==
PROVIDERS: Emergency Provider Student in an Organized Health Care Education/Training Program; PCP Family Medicine
DX: N13.2 Hydronephrosis with renal and ureteral calculous obstruction (principal); K59.00 Constipation, unspecified; I25.10 Atherosclerotic heart disease of native coronary artery without angina pectoris; Z79.82 Long term (current) use of aspirin; Z93.3 Colostomy status
CPT/HCPCS: 36415; 80053; 83690; 96360; 99285; 74177; 81003; 81015; 85025; 87086; 99284; J3490

== ENCOUNTER 2024-06-18 14:44 | Outpatient (CLI) | payer BC, SELFPAY ==
[2024-06-18 14:59] LABS: Abs Immature Grans 0.04 10^3/uL (0.0-0.06); Absolute Basophil Count 0.05 10^3/uL (0.0-0.2); Absolute Eosinophil Count 0.12 10^3/uL (0.0-0.7); Absolute Lymphocyte Count 1.46 10^3/uL (1.2-3.4); Absolute Monocyte Count 0.54 10^3/uL (0.1-0.8); Absolute Neutrophil Count 4.39 10^3/uL (1.2-6.7); Basophils % 0.8 %; Eosinophils % 1.8 %; HCT 42.5 % (40.0-50.0); HGB 14.7 g/dL (13.5-17.5); Immature Grans % 0.6 %; Lymphocytes % 22.1 %; MCH 31.7 pg (27.0-33.0); MCHC 34.6 % (32.0-36.0); MCV 92 fL (80-95); MPV 8.9 fL (8.0-11.0); Monocytes % 8.2 %; Neutrophils % 66.5 %; Platelet Count 221 10^3/uL (130-400); RBC 4.64 10^6/uL (4.36-5.78); RDW 13.2 % (11.8-14.1); RDW-SD 43.8 fL
[2024-06-18 16:05] LABS: Iron 80 ug/dL (65-175); Total Iron Binding Capacity 247 ug/dL (250-450); Transferrin Sat 32 % (20-55)
[2024-06-18 16:31] LABS: ALT 37 U/L (16-63); AST 28 U/L (15-37); Albumin 3.8 g/dL (3.4-5.0); Alkaline Phosphatase 73 U/L (46-116); Anion Gap 6.9 mmol/L (3-11); BUN 17 mg/dL (7-18); Bilirubin, Total 0.72 mg/dL (0.2-1.0); CO2 26.1 mmol/L (21.0-32.0); CREATININE 1.1 mg/dL (0.70-1.30); Chloride 106 mmol/L (98-107); Estimated GFR 75.43 (mL/min/1.73m2); Ferritin 104 ng/mL (26-388); Folate 19.3 ng/mL (8.6-20.0); Glucose 113 mg/dL (74-106); Magnesium 2.2 mg/dL (1.8-2.4); Potassium 3.6 mmol/L (3.5-5.1); Sodium 139 mmol/L (136-145); TSH 2.98 uIU/mL (0.36-3.74); Vitamin B12 416 pg/mL (193-986); Vitamin D 25 Total 29.5 ng/mL (30-100)
== END 2024-06-18 14:45 | disposition home or self-care (01) ==
LOC: LBO 14:45
PROVIDERS: PCP Family Medicine; Visit Provider Physical Medicine & Rehabilitation
DX: M79.10 Myalgia, unspecified site (principal); G47.9 Sleep disorder, unspecified; R53.83 Other fatigue; E61.1 Iron deficiency; E53.8 Deficiency of other specified B group vitamins; E55.9 Vitamin D deficiency, unspecified; D64.9 Anemia, unspecified; M89.9 Disorder of bone, unspecified
CPT/HCPCS: 36415; 80053; 82306; 82607; 82728; 82746; 83540; 83550; 83735; 84443; 85025

== ENCOUNTER 2024-06-29 06:16 | Day surgery (SDC) | payer BC, SELFPAY ==
[2024-06-29] VITALS (22 sets, daily range): BP systolic 77–114; BP diastolic 43–74; PULSE 51–70; RESP 9–20; TEMP 36.3–36.6; O2SAT 90–99; BMI 29.7
--- NOTE | 2024-06-29 06:53 | HPE_ITS ---
Date of service: 06/29/24 Time of Service: 06:54 Assessment and Plan Assessment and plan (1) Hydronephrosis concurrent with and due to calculi of kidney and ureter: Status: Acute Assessment and plan: We will do cystoscopy and clear out any stone fragments from his bladder. We will then do right retrograde pyelogram and ureteroscopy to address any ureteral stones. History of Present Illness History of Present Illness Chief Complaint: Right ureteral stones Narrative: This is a 64-year-old gentleman who has a past history significant for kidney stones. The stones have been bilateral and on his most recent chemical analysis, the stones were composed of 100% calcium oxalate monohydrate. Following his most recent ureteroscopy, he has had persistent right hydronephrosis although he is having mild intermittent flank pain. CT scan showed stone fragments in the mid ureter that we expected would pass, but the hydronephrosis remains. He presents now for ureteroscopy and treatment of any residual stone fragments. Review of Systems Narrative: No fevers or chills No vision change or dysphasia No diabetes or thyroid dysfunction Hx sleep apnea/asthma. No hemoptysis No chest pain or palpitations GERD. No hepatitis, ulcers, jaundice, diarrhea or constipation Hx migraines. No seizures, strokes or peripheral neuropathy No bleeding disorders or anemia No gout PFSH All Active Problems Fissure in skin of both feet (Acute) Hydronephrosis concurrent with and due to calculi of kidney and ureter (Acute) Endogenous hyperlipidemia (Acute) Lymph node disorder (Acute) Impacted cerumen (Acute) Cementosis (Acute) Ganglion cyst (Acute) Tinea manus (Acute) Coronary artery disease (Chronic) Shortness of breath (Acute) Neuropathy, intercostal nerve (Acute) Plantar fasciitis, bilateral (Acute) Neuralgia (Acute 01/18/15) Diverticulitis of intestine (Acute 01/18/15) Diverticulosis of colon without diverticulitis (Acute 09/14/11) Paresthesia of right upper limb (Acute 10/27/13) Pruritic rash (Acute 11/19/16) Tick bite (Acute 03/31/13) Arteriosclerosis of coronary artery (Acute ~01/2016) Mixed hyperlipidemia (Acute 02/25/18) Vitamin D deficiency (Acute 01/18/15) Tinnitus (Acute 01/18/15) MRI 12/04 normal Seasonal allergic rhinitis (Acute 09/14/11) Paresthesias (Acute 03/28/15) NUMBNESS lasting 40 sec to 4 min, L arm, L leg, 3 episodes since d/c [facility] [place] 03/19 PIN (prostatic intraepithelial neoplasia) (Acute 11/22/14) in one of 10 bx specimens, [place] Obstructive sleep apnea syndrome (Acute 09/14/11) DENTAL APPLIANCE AND FLONASE, LAST SLEEP STUDY [facility] [place] 06/201112/20/18 polysomnogram at [facility] [place] Sleep Med. CPAP recommended Sleep Study 09/21/17 [facility] [place]-CPAP recommended 08/22/18 CPAP started. [facility] [place] Sleep Medicine Mood disturbance (Acute 06/05/16) decr energy due to Lyme meds Migraine aura without headache (Acute 09/25/17) Hyperuricosuria (Acute 01/28/17) Dr. Joel Hoang History of aortic aneurysm repair (Acute 03/24/15) 02/2015 [facility] [place] endocarditis prophylaxis w/ Amox valve sparing aortic root replacement w/ 30 mm Valsalva graft GERD (gastroesophageal reflux disease) (Acute 01/18/15) Family history of colon cancer (Acute 09/14/11) COLON 02/2009; rpt q 3yr Extrinsic asthma, unspecified (Acute 05/12/12) ? related to GERD Elevated prostate specific antigen [PSA] (Acute 01/28/17) Dr. Hoang neg bx, updated PSA favoirable suggesing previous related to inflammation/inf, Free PSA indeterminate ED (erectile dysfunction) (Acute 10/27/13) Benign neoplasm of large intestine (Acute 03/02/09) TUBULAR ADENOMA 2008, Hepatic Flexure (hartong) Antibiotic long-term use (Acute 10/04/15) per Dr Theo Daley for possible Lyme related Agoraphobia without history of panic disorder (Acute 04/22/86) began during grad school; NORTRIPTYLINE EFFECTIVE, WORSE WITH EXCESS CAFFEINE Medical History Kidney stone (08/20/10) FOUND ON W/U ABD PAIN 08/2010 [facility] COD; POS FH (SISTERS, FATHER) Bilateral ureteral calculi Bilateral kidney stones Kidney stones History of tick-borne disease 9 day hospitalization, equipment [employer] antibiotic treatment Mass of left parotid gland Bladder stone Giardiasis Left ureteral stone Bacteremia due to Escherichia coli (01/18/15) Atrioventricular block, complete Pruritic rash (11/19/16) Right palm , responds to Epsom salts, transiently to steroid cream Palmar erythema (08/07/16) Right palm , responds to Epsom salts, transiently to steroid cream Aortic aneurysm (12/02/14) 5.14 cm ascending aorta CTA chest and abdomen w/out contrast repaired Surgical History Hx of cystoscopy kidney stone removal; June 2020 Hx of colectomy hx of ruptured colon with colostomy and reversal. 18 inches less of intestine per pt. History of laryngoscopy (~12/21/14) H/O colonoscopy (~04/26/14) w/ bx History of temporal artery biopsy (~11/27/14) bilaterally H/O vasectomy History of wisdom tooth extraction S/P tonsillectomy (~1971) H/O elbow surgery (~1986) Hx of colostomy (~08/2010) [place], perforated diverticulitis Re-Anastomosis 11/2010 s/p valve sparing root replacement Done at [facility] [place] 03/13/15 colonoscopy w/ bx (07/29/17) Prostate Biopsy with imaging guidance (11/25/14) Dr Hoang Family History Mother Neoplasm AGE 72, Colon cancer, LARGE SCALE ORGAN FAILURE Father , AGE 62 PANCREATIC CA Neoplasm Sister , PNEUMONIA AGE 49 CREST syndrome Colonic polyp Maternal Grandfather Neoplasm COLON CANCER Social History Smoking/Tobacco Use Status: Never Smoking risk assessment performed?: Yes Alcohol Intake: never Drug use: Never Substance use type: does not use Counseling provided: other (Patient declines to answer questionnaire) Household members: other Details: self, and son Housing: house Number of Children: 2 number of grandchildren: 0 Communication Needs: Hard of Hearing Education Level: master's degree Do you need help understanding health information?: Never current occupation: Retired What is your relationship status?: Panel score (0-1 are the most socially isolated patients): 1 What type of physical activity do you participate in: other Details: active daily Duration: 60-90 minutes/day Frequency: 3-4 times per week Seatbelt use: always Water heater temp set <120 deg: Yes Working smoke detector in home: Yes Fire extinguisher in home: Yes Carbon monox detector in home: Yes Do you feel safe at home: Yes Do you feel safe in your relationship?: Yes Additional Social history: pt. declines to answer Meds Allergies and Home Medications Allergies Allergy/AdvReac Type Severity Reaction Status Date / Time clindamycin AdvReac Unknown Hives Verified 06/29/24 06:49 paroxetine AdvReac Unknown active Verified 06/29/24 06:49 dreams Home Medications ?Medication ?Instructions ?Recorded ?Confirmed ?Type diphenhydramine HCl 25 mg capsule 25 mg PO PRN 03/11/17 06/29/24 History (Benadryl) aspirin 81 mg tablet,delayed 81 mg PO DAILY 06/02/21 06/29/24 History release cholecalciferol (vitamin D3) 25 1,000 unit PO DAILY 01/30/22 06/29/24 History mcg (1,000 unit) capsule tamsulosin 0.4 mg capsule (Flomax) 0.4 mg PO DAILY #90 caps 02/25/24 06/29/24 Rx ezetimibe 10 mg tablet (Zetia) 10 mg PO DAILY #90 tabs 03/13/24 06/29/24 Rx finasteride 5 mg tablet See Rx Instructions .Route 04/13/24 06/29/24 Rx .COMPLEX #90 tabs clotrimazole 1 % topical cream 1 applic topical BID #45 grams 04/23/24 06/29/24 Rx rosuvastatin 10 mg tablet (Crestor) 10 mg PO DAILY #90 tabs 04/23/24 06/29/24 Rx nystatin 1 million unit capsule 1,000,000 unit PO TID 06/26/24 06/29/24 History multivitamin 1 tab PO DAILY 06/29/24 06/29/24 History Exam Const General: cooperative and comfortable Neck Neck: supple Resp Effort & Inspection: normal respiratory effort Auscultation: clear to auscultation bilaterally Cardio Rate: regular rate Rhythm: regular rhythm GI Palpation: soft and no masses Neuro General: patient alert, patient awake and patient oriented x3 Results Last Vital Signs Temp 36.6 C 06/29/24 06:43 Pulse 61 06/29/24 06:43 Resp 14 06/29/24 06:43 BP 114/74 06/29/24 06:43 Pulse Ox 96 06/29/24 06:43 Time Spent Time spent with Patient: <40 minutes Time was spent: other
[2024-06-29] MEDS: Lactated Ringers 1,000 ML 80 ML IV (07:02)
--- NOTE | 2024-06-29 07:04 | ANES.PREOP_ITS ---
General Info Date of Service Date Performed: 06/29/24 Height: 5 ft 11 in Weight: 96.615 kg Body Mass Index (BMI): 29.7 Surgical Procedure: Operation Date: 06/29/24 07:40 Proposed Procedure Side Surgeon p Cystoscopy/Laser/Retrograde/Ureteroscopy/possible stent Right Ottoniel Mcintyre MD Meds Allergies and Home Medications Allergies Allergy/AdvReac Type Severity Reaction Status Date / Time clindamycin AdvReac Unknown Hives Verified 06/29/24 06:49 paroxetine AdvReac Unknown active Verified 06/29/24 06:49 dreams Home Medication ?Medication ?Instructions ?Recorded diphenhydramine HCl 25 mg capsule 25 mg PO PRN 03/11/17 (Benadryl) aspirin 81 mg tablet,delayed 81 mg PO DAILY 06/02/21 release cholecalciferol (vitamin D3) 25 1,000 unit PO DAILY 01/30/22 mcg (1,000 unit) capsule tamsulosin 0.4 mg capsule (Flomax) 0.4 mg PO DAILY #90 caps 02/25/24 ezetimibe 10 mg tablet (Zetia) 10 mg PO DAILY #90 tabs 03/13/24 finasteride 5 mg tablet See Rx Instructions .Route 04/13/24 .COMPLEX #90 tabs clotrimazole 1 % topical cream 1 applic topical BID #45 grams 04/23/24 rosuvastatin 10 mg tablet (Crestor) 10 mg PO DAILY #90 tabs 04/23/24 nystatin 1 million unit capsule 1,000,000 unit PO TID 06/26/24 multivitamin 1 tab PO DAILY 06/29/24 Current Visit Medications: Current Medications Generic Name Dose Route Start Last Admin Trade Name Freq PRN Reason Stop Dose Admin Ringer's Solution 1,000 mls @ 80 mls/hr 06/29/24 06:00 06/29/24 07:02 IV 06/29/24 23:59 80 mls/hr INFUSION GALLO Administration Cefazolin Sodium/Dextrose 2 gm in 50 mls @ 100 mls/hr 06/29/24 06:00 Ancef Duplex IVPB 06/29/24 23:59 PREOP GALLO IV Miscellaneous Supplies 1 each 06/29/24 06:00 Iv Access IV 06/29/24 23:59 DIRECTED GALLO Sodium Chloride 0 ml 06/29/24 06:00 Normal Saline Flush 10 Ml Syr IV 06/29/24 23:59 PRN PRN Sodium Chloride 0 ml 06/29/24 06:00 Normal Saline 10 Ml Vial IJ 06/29/24 23:59 DIRECTED PRN Sterile Water 0 ml 06/29/24 06:00 Water,Injection,Sterile 10 Ml Vial IJ 06/29/24 23:59 DIRECTED PRN PFSH Active Problems Active Problems: Problem Status Onset Code Fissure in skin of both feet Acute R23.4 Hydronephrosis concurrent with and due to calculi of kidney and ureter Acute N13.2 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 Lymph node disorder Acute I89.9 Impacted cerumen Acute H61.20 Cementosis Acute K03.4 Ganglion cyst Acute M67.40 Tinea manus Acute B35.2 Coronary artery disease Chronic I25.10 Shortness of breath Acute R06.02 Neuropathy, intercostal nerve Acute G58.0 Plantar fasciitis, bilateral Acute M72.2 Neuralgia Acute 01/18/15 M79.2 Diverticulitis of intestine Acute 01/18/15 K57.92 Diverticulosis of colon without diverticulitis Acute 09/14/11 K57.30 Paresthesia of right upper limb Acute 10/27/13 R20.2 Pruritic rash Acute 11/19/16 L28.2 Tick bite Acute 03/31/13 W57.XXXA Arteriosclerosis of coronary artery Acute ~01/2016 I25.10 Mixed hyperlipidemia Acute 02/25/18 E78.2 Vitamin D deficiency Acute 01/18/15 E55.9 Tinnitus Acute 01/18/15 H93.19 Seasonal allergic rhinitis Acute 09/14/11 J30.2 Paresthesias Acute 03/28/15 R20.2 PIN (prostatic intraepithelial neoplasia) Acute 11/22/14 N42.31 Obstructive sleep apnea syndrome Acute 09/14/11 G47.33 Mood disturbance Acute 06/05/16 R45.86 Migraine aura without headache Acute 09/25/17 G43.109 Hyperuricosuria Acute 01/28/17 R82.993 History of aortic aneurysm repair Acute 03/24/15 Z98.890, Z86.79 GERD (gastroesophageal reflux disease) Acute 01/18/15 K21.9 Family history of colon cancer Acute 09/14/11 Z80.0 Extrinsic asthma, unspecified Acute 05/12/12 J45.909 Elevated prostate specific antigen [PSA] Acute 01/28/17 R97.20 ED (erectile dysfunction) Acute 10/27/13 N52.9 Benign neoplasm of large intestine Acute 03/02/09 D12.6 Antibiotic long-term use Acute 10/04/15 Z79.2 Agoraphobia without history of panic disorder Acute 04/22/86 F40.02 Medical History Medical History Kidney stone (08/20/10) FOUND ON W/U ABD PAIN 08/2010 [facility] COD; POS FH (SISTERS, FATHER) Bilateral ureteral calculi Bilateral kidney stones Kidney stones History of tick-borne disease 9 day hospitalization, skilled nursing antibiotic treatment Mass of left parotid gland Bladder stone Giardiasis Left ureteral stone Bacteremia due to Escherichia coli (01/18/15) Atrioventricular block, complete Pruritic rash (11/19/16) Right palm , responds to Epsom salts, transiently to steroid cream Palmar erythema (08/07/16) Right palm , responds to Epsom salts, transiently to steroid cream Aortic aneurysm (12/02/14) 5.14 cm ascending aorta CTA chest and abdomen w/out contrast repaired Surgical History Surgical History Hx of cystoscopy kidney stone removal; June 2020 Hx of colectomy hx of ruptured colon with colostomy and reversal. 18 inches less of intestine per pt. History of laryngoscopy (~12/21/14) H/O colonoscopy (~04/26/14) w/ bx History of temporal artery biopsy (~11/27/14) bilaterally H/O vasectomy History of wisdom tooth extraction S/P tonsillectomy (~1971) H/O elbow surgery (~1986) Hx of colostomy (~08/2010) [place], perforated diverticulitis Re-Anastomosis 11/2010 s/p valve sparing root replacement Done at [facility] [place] 03/13/15 colonoscopy w/ bx (07/29/17) Prostate Biopsy with imaging guidance (11/25/14) Dr Hoang Tobacco Smoking/Tobacco Use Status: Never Alcohol Alcohol Intake: never Substance Use Substance use: Never Substance use type: does not use Counseling provided: other (Patient declines to answer questionnaire) Vital Signs and Lab Results Vital Signs Most Recent Vital Signs in EMR: Most Recent Vital Signs Temp Pulse Resp BP Pulse Ox 36.6 C 61 14 114/74 96 06/29/24 06:43 06/29/24 06:43 06/29/24 06:43 06/29/24 06:43 06/29/24 06:43 Lab Results Blood Type / Crossmatch: No Data to Display Complete Blood Count: White Blood Count 6.60 10^3/uL (4.4-10.8) 06/18/24 14:30 Red Blood Count 4.64 10^6/uL (4.36-5.78) 06/18/24 14:30 Hemoglobin 14.7 g/dL (13.5-17.5) 06/18/24 14:30 Hematocrit 42.5 % (40.0-50.0) 06/18/24 14:30 Platelet Count 221 10^3/uL (130-400) 06/18/24 14:30 Complete Metabolic Panel: Sodium 139 mmol/L (136-145) 06/18/24 14:30 Potassium 3.6 mmol/L (3.5-5.1) 06/18/24 14:30 Chloride 106 mmol/L (98-107) 06/18/24 14:30 Carbon Dioxide 26.1 mmol/L (21.0-32.0) 06/18/24 14:30 BUN 17 mg/dL (7-18) 06/18/24 14:30 Creatinine 1.1 mg/dL (0.70-1.30) 06/18/24 14:30 Est GFR (CKD-EPI 2020) 75.43 (mL/min/1.73m2) 06/18/24 14:30 Magnesium 2.2 mg/dL (1.8-2.4) 06/18/24 14:30 Calcium 9.0 mg/dL (8.5-10.1) 06/18/24 14:30 Albumin 3.8 g/dL (3.4-5.0) 06/18/24 14:30 Glucose 113 mg/dL (74-106) H 06/18/24 14:30 Liver Function Panel: Alanine Aminotransferase (ALT/SGPT) 37 U/L (16-63) 06/18/24 14: 30 Aspartate Amino Transf (AST/SGOT) 28 U/L (15-37) 06/18/24 14:30 Coagulation Panel: No Data to Display Cardiac Panel: No Data to Display Arterial Blood Gas: No Data to Display Venous Blood Gas: No Data to Display Pancreas Panel: No Data to Display Thyroid Panel: Thyroid Stimulating Hormone (TSH) 2.98 uIU/mL (0.36-3.74) 06/18 14:30 Infectious Disease: No Data to Display Blood Cultures: No Data to Display Toxicology Panel: No Data to Display Imaging and Studies Imaging and Studies Study information below may be from another EMR and interpreted by another provider. Please see original notes in EMR for more complete details. EKG Summary: 09/04/22: Exam: Resting ECG Reason for Exam: CAD Patient Location: O HR:96 bpm ECG Measurements Heart Rate 96 AXIS HI 164 P 78 QRSd 95 QRS 65 QT 337 T37 QTc 426 Conclusion Sinus rhythm...normal P axis, V-rate 50- 99 Probable left atrial enlargement...P >50mS, <-0.10mV V1 Otherwise normal ECG Stress Test Summary: 09/2019: 13 METS, no symptoms or evidence of ischemia. upsloping ST depression in the lateral leads towards the end of exercise likely representing j-junction depression. LVEF 51%, no ischemia on imaging portion. Echocardiogram Summary: 12/08/2022: ([facility] [place] Report): EF 60%, No significant valvular lesions CT Summary: head/neck CT 2014: negative carotid and intracranial CT, no carotid dissection. Carotid Artery Summary:: 2015: no significant stenosis. Anesthesia Assessment and Plan Anesthesia History Personal History: No History of Anesthesia Complications Family History: No Family History of Anesthesia Complications Exercise Tolerance Exercise Tolerance: Metabolic Equivalents>4 Pertinent Negatives Pertinent Negatives: No Symptoms of GERD Cardiac & Pulmonary Exam Cardiac Exam: Normal S1/S2 Heart Sounds Pulmonary Exam: Clear Bilateral Breath Sounds Implantable Cardiac Device Does patient have a Pacemaker or an ICD?: No Airway Exam Known Difficult Airway: No Mallampati Class: 1 Mouth Opening: Normal (> 3cm) Thyromental Distance: Greater than 3 cm Neck Range of Motion: Full ROM Neck Circumference: Normal Teeth Condition: Normal Dentition and Other ASA Classification ASA Score: ASA 3 Emergency Case?: No NPO Status NPO Status: NPO Clears >2 hours, Solids >8 hours Anesthesia Plan Resuscitation Status: Full Code Anesthesia Technique: General Anesthesia Airway Planned: LMA Monitors Used: Standard Monitors
[2024-06-29] MEDS: ceFAZolin 2 GM/50 ML BAG IVPB (07:31)
[2024-06-29] MEDS: Lidocaine 2% Jelly 11 ML SYR (07:57)
--- NOTE | 2024-06-29 08:59 | DI.RAD_ITS ---
Exam(s) XR RETROGRADE IN OR EXAM: XR RETROGRADE IN OR CLINICAL HISTORY: Hydronephrosis concurrent with and due to calculi TECHNIQUE: 2D and realtime digital imaging was performed. CONTRAST MATERIAL: Refer to procedure report. COMPARISON: No exams were available for comparison FINDINGS: Fluoroscopy was provided for Dr. Mcintyre during the performance of a retrograde evaluation of the rafiq l collecting system. Please refer to the procedure report for complete details. Ka,r=17.2 mGy IMPRESSION: RADIATION DOSE DELIVERED: 0.0 0.0 0
--- NOTE | 2024-06-29 08:59 | PDOC.DSDIS_ITS ---
Date of service: 06/29/24 Discharge Plan Disposition Patient Disposition: Home Condition: Stable Discharge Details Reason For Visit: ureteroscopy Attending Provider: Ottoniel Mcintyre Primary Care Provider: Thaddeus Benson Home Meds and New Rx's Prescriptions: No Action aspirin 81 mg tablet,delayed release (DR/EC) 81 mg PO DAILY clotrimazole 1 % cream 1 applic topical BID Qty: 45 3RF rosuvastatin [Crestor] 10 mg tablet 10 mg PO DAILY Qty: 90 3RF tamsulosin [Flomax] 0.4 mg capsule 0.4 mg PO DAILY Qty: 90 1RF diphenhydramine HCl [Benadryl] 25 MG capsule 25 mg PO PRN cholecalciferol (vitamin D3) 25 mcg (1,000 unit) capsule 1,000 unit PO DAILY ezetimibe [Zetia] 10 mg tablet 10 mg PO DAILY Qty: 90 3RF finasteride 5 mg tablet See Rx Instructions .ROUTE .COMPLEX Qty: 90 3RF Dose Instruction: TAKE 1 TABLET BY MOUTH DAILY FOR PROSTATE Rx Instructions: TAKE 1 TABLET BY MOUTH DAILY FOR PROSTATE nystatin 1 million unit capsule 1,000,000 unit PO TID multivitamin Tablet 1 tab PO DAILY Discharge Instructions Additional Instructions: no need to strain urine You have a stent in the right ureter. As long as you have the stent, you may s ee blood in the urine or have discomfort when you urinate. My office will contact you to arrange a cystoscopy and stent removal Followup visit 6 weeks with renal US in office Activity:: Activity as Tolerated Shower/Bathe:: 24 hours Diet:: As Tolerated Discharge Orders Discharge Orders: Discharge Order (Routine); Ordered 06/29/24 Ordered By: Ottoniel Mcintyre DS: Diagnosis Discharge Diagnosis (1) Hydronephrosis concurrent with and due to calculi of kidney and ureter: Status: Acute
[2024-06-29] MEDS: Omnipaque 300 MG/ML 50 ML BTL (09:00)
--- NOTE | 2024-06-29 09:03 | W.PM.OP ---
Operative Note Operative Note PRE-OP DIAGNOSIS: Right ureteral stones POST-OP DIAGNOSIS: same PROCEDURE: cystoscopy, right retrograde pyelogram, right flexible ureteroscopy with holmium laser lithotripsy and extraction of stone fragments, insert right ureteral stent SURGEON: Ottoniel Mcintyre ANESTHESIA TYPE: Local By Surgeon and General LMA/ETT Refer to Anesthesia Record ESTIMATED BLOOD LOSS: 5 PATHOLOGY: other (stones for chemical analysis) COMPLICATIONS: None Patient was transported to: PACU Patient's condition: stable Implants: 7 Jordanian by 22 to 30 cm right ureteral stent Indications: This is a 64-year-old gentleman who has a history of calcium oxalate monohydrate kidney stones. The stones have been bilateral. He had a large burden stone disease in the right kidney and we had referred him for consideration of percutaneous nephrolithotomy. While awaiting the referral, he developed a renal colic on the right side which was associated with migration of one of his large stones into the right ureter. He underwent ureteroscopy and holmium laser lithotripsy of his stones. We extracted a large amount of stone from the right kidney. In the postoperative course, he developed a repeat renal colic and was found to have right hydronephrosis with mid ureteral stones. His symptoms improved, but his hydronephrosis persisted. We suspect his stones are still present so he presents now for ureteroscopy. Findings: Multiple right mid ureteral stones with ureteral narrowing distally Procedure Description: The patient was given preoperative antibiotics and brought to the operating room on 06/29/2024. After successful induction of general anesthesia, he was placed in the dorsal lithotomy position. His genitalia was prepped and draped. 2% Xylocaine jelly was instilled into the urethra. A 22 Jordanian rigid cystoscope was passed through the urethra into the bladder. The urethra and bladder were inspected with the 30 degree lens. The pendulous, bulbar and membranous urethra all appeared normal with no strictures. The prostatic urethra showed trilobar enlargement with a significant median lobe present. The bladder neck was entered and the bladder mucosa was inspected. Both ureteral orifice ease could not be visualized. No blood was seen coming from either side. No papillary or nodular lesions were seen within the bladder. No stones were seen within the bladder. A 5 Jordanian access catheter was then utilized to engage the right ureteral orifice. I injected Omnipaque through the access catheter and identified a series of filling defects in the right mid ureter. I was able to pass a guidewire through the lumen of the access catheter and up the ureter. I then removed the cystoscope and passed a dual-lumen catheter over the wire. A second wire was positioned. We chose one of the wires as a working wire and the second as a safety wire. I then passed a ureteral access sheath over the working wire leaving the safety wire in place. I passed the flexible ureteroscope through the lumen of the access sheath and I was able to visualize stone that appeared to be embedded in the ureteral wall. I was able to treat the stone with a 272 ?m holmium laser fiber and utilize dusting settings. As the stone fragments were treated, I was able to pass my scope more proximally up the ureter. Above the initial stone, I was able to move to other stone fragments back up into the renal pelvis. These stone fragments were treated with the holmium laser fiber. Once they were more manageable, I was able to grasp the stone fragments in it 0 tip stone basket and extract them. The stone fragments were then sent to pathology for permanent section. At the completion of the procedure, I did not identify any low residual large stone fragments. I performed a retrograde pyelogram and there was no extravasation of contrast from the ureter. Because of the ureteral narrowing and today's ureteroscopy, I passed a 7 Jordanian variable length stent over the safety wire. The proximal end of the stent was curled in the renal pelvis and the distal end was curled within the bladder. The positioning of the stent was confirmed both fluoroscopically and cystoscopically. The patient tolerated this procedure well with no complications. He was taken to the recovery room in stable condition. Date of Procedure: 06/29/24
[2024-06-29] MEDS: ePHEDrine 25 MG/5 ML Syringe IVP (09:06)
[2024-06-29] MEDS: Phenazopyridine 200 MG TAB PO (10:09)
--- NOTE | 2024-06-29 11:14 | W.ANESPOSTOP ---
Postoperative Evaluation Date, Time and Location Date Performed: 06/29/24 Time Performed: 11:14 Patient Location: Day Surgery Unit Vital Signs Most Recent Imported Vital Signs: Most Recent Vital Signs Temp Pulse Resp BP Pulse Ox 36.4 C L 58 L 16 104/72 95 06/29/24 10:01 06/29/24 10:01 06/29/24 10:01 06/29/24 10:01 06/29/24 10:01 Pain Score Most Recent Pain Score: Most Recent Pain Score Pain Level 2 06/29/24 10:01 Assessment Mental Status: Awake (Alert & Oriented to Patient Baseline) Airway and Respiratory Function: Patent airway with normal (patient baseline) respiratory exam Cardiovascular Function: Hemodynamically Stable Hydration Status: Adequately Hydrated Nausea & Vomiting: No Nausea or Vomiting Pain: Pt. Denies Any Pain Peripheral Nerve Block: Patient did not receive a nerve block
[2024-07-09 09:25] LABS: Source: Right Kidney
== END 2024-06-29 11:40 | disposition home or self-care (01) ==
PROVIDERS: PCP Family Medicine; Visit Provider Urology
PROC: (CPT 52356; principal; 2024-06-29 07:30)
DX: N13.2 Hydronephrosis with renal and ureteral calculous obstruction (principal); I25.10 Atherosclerotic heart disease of native coronary artery without angina pectoris; E78.2 Mixed hyperlipidemia; K21.9 Gastro-esophageal reflux disease without esophagitis; J45.909 Unspecified asthma, uncomplicated
CPT/HCPCS: 52356; 74420; 82365; J0690; J1100; J1885; J2250; J2405; J2704; Q9967

== ENCOUNTER 2024-08-19 00:37 | Outpatient (CLI) | payer BC, SELFPAY ==
--- NOTE | 2024-08-19 12:30 | DI.US_ITS ---
APPROVED REPORT EXAM: Comprehensive 2D, Doppler, and color-flow Echocardiogram Patient Location: Out-Patient Nurse Aide Evaluator: Codey Aragon RDCS (AE) Indications: Check aorta, h/o aortic aneurysm Conclusion Normal left ventricular wall thickness and chamber size. Ejection fraction is 60 to 65%. Wall motio n is normal Normal right ventricular size and function Both atria are normal in size Aortic valve is trileaflet with mild regurgitation Mildly thickened mitral leaflets, trace to mild regurgitation Normal tricuspid valve with trace to mild regurgitation. Estimated right ventricular systolic pressu re is 28 mmHg Ascending aorta measures 3.88 cm Wall motion Left Ventricle The left ventricle is normal size. The left ventricular systolic function is normal. The left ventric ular ejection fraction is within the normal range. There is normal left ventricular wall thickness. T here is normal LV segmental wall motion. The left ventricular diastolic function is normal. There is no ventricular septal defect visualized. LVEF is60-65%. Right Ventricle The right ventricle is normal size. The right ventricular systolic function is normal. Atria The left atrium size is normal. The right atrium size is normal. The interatrial septum is intact wi th no evidence for an atrial septal defect. Aortic Valve Aortic valve is grossly normal in structure. Aortic valve is trileaflet. There is no aortic valvular stenosis. Mild aortic regurgitation. Mitral Valve Mildly thickened mitral leaflets No evidence of mitral valve stenosis. Trace to mild mitral regurgita tion. Tricuspid Valve The tricuspid valve is normal in structure. There is no tricuspid valve stenosis. Trace to mild tricu spid regurgitation. The RVSP is 28.2 mmHg. Pulmonic Valve The pulmonary valve is normal in structure. There is no pulmonic valvular stenosis. There is no pulmo liliam valvular regurgitation. Great Vessels The aortic root is normal in size. The ascending aorta is mildly to moderately dilated. IVC is normal in size and collapses >50% with inspiration. Pericardium There is no pericardial effusion. 2D Dimensions IVSD d PLAX 1.05 cm M: 0.6-1.2 Ao Root d 3.07 cm M: 3.1 - 3.7 LVPW d PLAX 1.13 cm M: 0.6 - 1.2 Ao Asc Diam d 3.88 cm M: 2.6 - 3.4 LVID d PLAX 5.21 cm M: 4.2 - 5.8 LVDs 3.45 cm M: 2.5 - 4.0 LV EF Teichholz 62.2 % FS 33.77 % LV EDV (Teich) 129.9 mL LV ESV (Teich) 49.1 mL Stroke Vol Index (Teich) 37.25 M-Mode TAPSE 2.86 cm (M/F) >1.7 Auto EF LV EDV A4C 127.6 mL LV EDV A2C 110.9 mL LV EDV BP 119.8 mL LV ESV A4C 46.9 mL LV ESV A2C 39.8 mL LV ESV BP 43.1 mL LVEF(%) A4C 63.3 % LVEF(%) A2C 64.1 % LVEF(%) BP 64.0 % LV SV A4C 80.7 ml LV SV A2C 71.0 ml LV SV BP 76.7 ml LV CO A4C 4.1 L/min LV CO A2C 3.7 L/min LV CO BP 3.9 L/min HR A4C 51.21 BPM HR A2C 52.47 BPM LV EDV Index (BP) LA Volume LA Length A4C 5.7 cm LA Length A2C 6.2 cm LA Area A4C s 16.48 cm2 LA Area A2C s 18.03 cm2 LA Vol A4C A-L 40.15 mL LA Vol A2C A-L 44.73 mL LA Vol Biplane A-L 43.9 mL LA Vol/BSA A4C A-L LA Vol/BSA A2C A-L LA Vol/BSA BP A-L 20.2 mL/m2 LA Vol A4C MOD 38.2 mL LA Vol A2C MOD 43.6 mL LA Vol BP MOD 42.1 mL RA Volume RA Area A4C 12.1 cm2 RA ESV A4C (A-L) 24.9mL RA Vol/BSA A4C A-L RA Length A4C 5.0 cm RA ESV A4C (MOD) 23.0mL LV Diastology MV E' medial 0.089 (>0.07 m/s) MV E Vmax 0.66 (0.4-1.3 m/s) MV E/E' MED 7.41 (<14) MV A Vmax 0.80 (0.4-1.3 m/s) MV E' lateral 0.086 (>0.1 m/s) E/A Ratio 0.8 MV E/E' LAT 7.70 (<14) MV E' Average 0.087 m/s MV E/E'(average) 7.55 Aortic Valve AoV Vmax 1.77 m/s LVOT Vmax 0.98 m/s AoV Peak Grad 12.6 mmHg LVOT Peak Grad 3.8 mmHg AoV Area (Vmax) 1.86 cm2 LVOT VTI 0.207 m AoV VTI 0.412 m LVOT Mean Grad 1.7 mmHg AoV Mean Quinn. 1.19 m/s LVOT SV 70.05 mL AoV Mean Grad 6.5 mmHg LVOT Diam s 2.05 cm AoV Area (VTI) 1.70 cm2 AV Regurg Peak Gr. 12.57 mmHg Velocity Ratio 0.55 Mitral Valve MV DT 271 (160-240 msec) Pulmonary Valve PV Vmax 0.89 (0.5-1.5 m/s) RVOT Vmax 0.86 m/s PV Peak Grad 3.2 mmHg RVOT Peak Gr. 3.0 mmHg PV Mean Quinn 0.61 m/s RVOT VTI 0.205 m PV Mean Grad 1.7 mmHg RVOT Mean Gr. 1.7 mmHg Tricuspid Valve RA Pressure 3.00 mmHg TR Vmax 2.51 m/s TV S' 0.15 m/s TR Peak Grad 25.2 mmHg RVSP (TR) 28.2 mmHg
== END 2024-08-19 00:57 ==
LOC: DI 00:37
PROVIDERS: PCP Family Medicine; Visit Provider Internal Medicine Cardiovascular Disease
DX: Z98.890 Other specified postprocedural states (principal); Z86.79 Personal history of other diseases of the circulatory system; I08.0 Rheumatic disorders of both mitral and aortic valves
CPT/HCPCS: 93306

== ENCOUNTER 2024-09-01 07:47 | Outpatient (CLI) | payer BC, SELFPAY ==
--- NOTE | 2024-09-01 07:45 | RT.EKG_ITS ---
APPROVED REPORT Exam: Resting ECG Reason for Exam: CAD Patient Location: O HR:82 bpm ECG Measurements Heart Rate 82 AXIS VT 162 P 72 QRSd 95 QRS 52 QT 367 T 42 QTc 429 Conclusion Sinus rhythm...normal P axis, V-rate 50- 99 Probable left atrial enlargement...P >50mS, <-0.10mV V1 Poor R wave progression Baseline wander in lead(s) III,aVF
== END 2024-09-01 07:48 | disposition home or self-care (01) ==
LOC: DI.CARD 07:48
PROVIDERS: PCP Family Medicine; Visit Provider Internal Medicine Cardiovascular Disease
DX: I25.10 Atherosclerotic heart disease of native coronary artery without angina pectoris (principal); I44.2 Atrioventricular block, complete; R06.02 Shortness of breath; Z98.890 Other specified postprocedural states; Z86.79 Personal history of other diseases of the circulatory system
CPT/HCPCS: 93010

== ENCOUNTER 2024-09-21 02:17 | Outpatient (CLI) | payer BC, SELFPAY ==
--- NOTE | 2024-09-21 07:15 | DI.NM_ITS ---
APPROVED REPORT Exam: Exercise Treadmill Patient Location: Out-Patient Room/Bed: Stress Nurse: Nicki Hu RN Ordering Provider:DIMITRY BAR, Contact Number: BMI: 29.28 Baseline Rhythm: Sinus Bradycardia Indications: Dyspnea on exertion, SOB, CAD Medical History Medical History: Hx of aortic aneurysm repair, 45% LAD stenosis, [place], HLD, CAD, CHANCE, GERD Cardiac Medications: Aspirin, tamsulosin, ezetimibe, rosuvastatin Allergies: Clindamycin, paroxetine Cardiac Risk Factors: HLD Previous Cardiac Procedures: None Pretest Chest Pain Characteristics: None Exercise History: Physically active Physical Disabilities: None Lung Sounds: Clear to auscultation Heart Sounds: Regular Stress Test Details Test: Exercise stress testing was performed using a Dg protocol. Nuclear Acquisition: Rest Tc-99m/Stress Tc-99m 1 day Rest Isotope: Tc-99m Sestamibi. Dose: 10.0 Date: 09/21/2024 Injection Time: 0920 Stress Isotope: Tc-99m Sestamibi. Dose: 30.0 Date: 09/21/2024 Injection Time: 1130 HR Resting HR Supine: 51 bpm Max Heart Rate (APMHR): 157 bpm Resting HR Standin bpm Target HR (85% APMHR): 133 bpm Max HR Achieved: 145 bpm % of APMHR: 92 Recovery HR: 63 bpm HR response to stress: Normal HR response to stress BP Resting BP Supine: 160/90 mmHg Resting BP Standin/82 mmHg Max BP: 190/78 mmHg Recovery BP: 172/92 mmHg BP response to stress: Normal blood pressure response to stress. ECG Resting ECG: Sinus Bradycardia Ectopy: None Stress ECG: Sinus Tachycardia ST Change: No significant ST segment changes noted Arrhythmia: Occasional PVC's Recovery ECG: Sinus Rhythm Recovery ST Change: No significant ST segment changes noted Recovery Arrhythmia: Rare PVC Clinical Reason for Termination: Target HR Achieved, Mod SOB Stress Symptoms: Mod SOB Exercise duration: 08 min30 sec Highest Stage Reached: Stage 3: 3.4 mph at 14% grade. Exercise capacity: 10.16 METs Angina Score: None Francis Treadmill Score: 8.5 Rate Pressure Product: [id number] Stress ECG Conclusion 1. Resting EKG showed late transition 2. Patient exercised on the Dg protocol and completed workload of 10 METS 3. Normal heart rate and blood pressure response to exercise. The patient achieved 92% of maximal pr edicted heart rate for age 4. There was no electrocardiographic evidence of myocardial ischemia 5. Occasional PVCs were noted 6. See MPI report Francis Treadmill Score is 8.5 which is Low risk. Stress Test Summary STAGE Time (mins) Speed (mph) Grade (%) HR BP SpO2 SYMPTOMS METS Supine 51 160/90 98% Standing 59 164/82 1 3 1.7 10 90 158/80 98% 4.5 2 6 2.5 12 124 170/80 98% 7 3 9 3.4 14 112 190/78 10 1 min recovery 112 190/78 99% 3 min recovery 68 180/88 98% 6 min recovery 63 172/92 98% MPI Conclusion Myocardial perfusion is normal. There is no ischemia or evidence of prior infarction Ejection fraction is normal with normal wall motion
== END 2024-09-21 02:37 ==
LOC: DI 02:17
PROVIDERS: PCP Family Medicine; Visit Provider Internal Medicine Cardiovascular Disease
DX: R06.02 Shortness of breath (principal); I25.10 Atherosclerotic heart disease of native coronary artery without angina pectoris
CPT/HCPCS: 78452; 93017

== ENCOUNTER 2024-11-20 09:14 | Outpatient (CLI) | payer BC, SELFPAY ==
[2024-11-20 18:22] LABS: PSA, Diagnostic <0.1 ng/mL (<=4.5)
== END 2024-11-20 09:15 | disposition home or self-care (01) ==
LOC: LBO 09:14
PROVIDERS: PCP Family Medicine; Visit Provider Urology
DX: R97.20 Elevated prostate specific antigen [PSA] (principal)
CPT/HCPCS: 36415; 84153

== ENCOUNTER 2025-01-29 03:20 | Outpatient (CLI) | payer BC, SELFPAY ==
--- NOTE | 2025-01-29 | DI.CT_ITS ---
Exam(s) CT NECK W EXAM: CT NECK W INDICATION: PAROTID MASS, K11.8. COMPARISON: No exams were available for comparison TECHNIQUE: FINDINGS: VISUALIZED PARANASAL SINUSES: There is a retention cyst in the floor of the left maxillary sinus measuring 1.7 by 1.4 cm. There is no associated fluid level. No bone dehiscence. Right maxillary sinus is clear as are the sphenoid and ethmoidal air cells. The frontal sinuses are not developed. There are no mastoid effusions. NASOPHARYNX: Unremarkable ORODENTAL: No periapical lucencies in the teeth. No evidence of abscess. OROPHARYNX: Unremarkable. No masses evident. HYPOPHARYNX: Unremarkable. Valleculae and epiglottis and aryepiglottic folds appear normal. VOCAL CORDS: Unremarkable. No masses evident. Subglottic airway appears unremarkable. THYROID GLAND: Unremarkable. Normal size and no obvious nodules. SALIVARY GLANDS: Submandibular glands unremarkable as is the right parotid gland. There is, however, a well-defined solitary 11 x 11x 11 mm nodule in the posterior aspect of the left parotid gland, this immediately subjacent to the skin marker. This exhibits relatively uniform thin peripheral enhancement. There is no internal calcification. The medial edge of this nodule appears well-defined and does not appear to be invading subjacent structures including an adjacent vein at this level. There is no bony involvement. LYMPH NODES: There is no ipsilateral nor contralateral adenopathy evident in the neck and supraclavicular regions. OTHER: Sternotomy wires are noted. There is partially calcified plaque the level the carotid bifurcations and proximal internal carotid arteries. Less than 20 percent stenosis bilaterally at these levels.. VISUALIZED LUNG APICES: No significant findings. IMPRESSION: 1. There is a solitary peripherally enhancing 1.1 x 1.1 x 1.1 cm nodule in the posterior aspect of the left parotid gland, this located medially subjacent to the skin marker. This appears confined to the posterior aspect of the parotid gland and does not exhibit invasion of surrounding structures. It exhibits relatively uniform peripheral enhancement and no internal calcification. Density measurements within this nodule average 15 HU implying that it may be cystic. It is well-defined appearance and round-shaped imply that it is most probably a benign lesion. 2. The opposite-right parotid gland is unremarkable as are the submandibular glands. 3. There are no other significant findings nor lymphadenopathy in the neck. RADIATION DOSE DELIVERED: 455.92mGy.cm Total DLP DATA REPOSITORY: All CT scans at this facility are submitted to the National Radiology Data Registry (NRDR) Dose Index Registry (DIR) with the [employer] ([employer]). RADIATION OPTIMIZATION: All CT scans at this facility use at least one of these dose optimization techniques: automated exposure control; mA and/or kV adjustment per patient size (includes targeted exams where dose is matched to clinical indication); or iterative reconstruction.
[2025-01-29 14:53] LABS: Estimated GFR 47.82 (mL/min/1.73m2)
[2025-01-29] MEDS: Omnipaque 350 MG/ML 100 ML BTL IJ (15:10)
[2025-01-29] MEDS: Normal Saline - Diluent 50 ML VIAL IJ (15:11)
[2025-01-29] MEDS: Normal Saline Flush 10 ML SYR IVP (15:13)
== END 2025-01-29 03:40 ==
LOC: DI 03:20
PROVIDERS: PCP Family Medicine; Visit Provider Student in an Organized Health Care Education/Training Program
DX: K11.8 Other diseases of salivary glands (principal)
CPT/HCPCS: 70491; 82565; J3490

== ENCOUNTER 2025-02-03 08:09 | Outpatient (CLI) | payer BC, SELFPAY ==
--- NOTE | 2025-02-03 08:00 | DI.MRI_ITS ---
Exam(s) MR BRAIN WO EXAM: MR BRAIN WO CLINICAL HISTORY: worsening visual disturbance,migraine aura w/o headache,g43.109 TECHNIQUE: Multiplanar multisequence MRI of the brain was performed. MR MRI - BRAIN WO CONTRAST from 09/13/2017 FINDINGS: VENTRICLES AND EXTRA AXIAL SPACES: Normal in size and morphology for the patient's age. MIDLINE SHIFT: None. CEREBRAL PARENCHYMA: No focus of restricted diffusion to suggest acute infarct. No space-occupying lesion identified. HEMORRHAGE: None. BRAINSTEM/CEREBELLUM: Normal. CALVARIUM: Normal. VISUALIZED PARANASAL SINUSES/MASTOIDS:There is a mucous retention cyst in the left maxillary sinus. EEK OF IBRAHIM: Normal flow void. PITUITARY GLAND: Unremarkable. OTHER FINDINGS: None. IMPRESSION: Unremarkable MRI of the brain. DATA REPOSITORY:
== END 2025-02-03 08:29 ==
LOC: DI 08:09
PROVIDERS: PCP Family Medicine; Visit Provider Nurse Practitioner Adult Health
DX: G43.109 Migraine with aura, not intractable, without status migrainosus (principal)
CPT/HCPCS: 70551

== ENCOUNTER 2025-03-16 09:38 | Outpatient (CLI) | payer BC, SELFPAY ==
[2025-03-16 19:45] LABS: PSA, Diagnostic 2.1 ng/mL (<=4.5)
== END 2025-03-16 09:39 | disposition home or self-care (01) ==
LOC: LBO 09:38
PROVIDERS: PCP Family Medicine; Visit Provider Urology
DX: R97.20 Elevated prostate specific antigen [PSA] (principal)
CPT/HCPCS: 36415; 84153